=== PATIENT | male | born 1940 | race Caucasian/White ===

== ENCOUNTER → 2016-12-18 | Outpatient (CLI) | payer MEDICARE, BC ==
[2016-12-18 13:42] LABS: Anion Gap 9 mmol/L; Blood Urea Nitrogen 25 mg/dL (9-20); Carbon Dioxide 27 mmol/L (22-30); Chloride 105 mmol/L (98-107); Non-African American GFR(MDRD) 59 (>60 ml/min/1.73 sqM); Sodium 141 mmol/L (137-145)
[2016-12-18 14:01] LABS: CH 34.7; CHCM 35.2; HCT 36.1 % (39.0-53.0); HDW 2.98; HGB 12.5 gm/dL (13.0-17.5); MCH 34.4 pg (25.0-35.0); MCHC 34.7 g/dL (31.0-37.0); MCV 99.2 fL (80.0-100.0); Mean Platelet Volume 7.7; RBC 3.63 m/uL (4.30-5.90); RDW 13.7 % (11.5-15.5); WBC 7.2 k/uL (3.8-10.6)
== END | disposition home or self-care (01) ==
LOC: LABPAT 12:26
PROVIDERS: ATTEND Internal Medicine Interventional Cardiology
DX: Z01.812 Encounter for preprocedural laboratory examination (principal); I73.9 Peripheral vascular disease, unspecified
CPT/HCPCS: 80051; 82565; 84520; 85027

== ENCOUNTER 2016-12-20 07:40 | Day surgery (SDC) | payer MEDICARE, BC ==
[2016-12-18 11:36] VITALS: BMI 37.5
[~2016-12-20 07:40] MED LIST: ALPRAZolam 0.25 MG TAB PO PRN; ASPIRIN 325 MG TAB PO STA; SODIUM CHLORIDE 0.9% 1,000 ML in EMPTY BAG 1 BAG IV ONE
[2016-12-20 08:12] VITALS: PULSE 71; TEMP 97.8
[2016-12-20 08:12] LABS: Glucose,Whole Blood 148 mg/dL (75-99)
[2016-12-20] MEDS: MIDAZOLAM 2 MG/2 ML VIAL IVP ONE ×2 (09:43→09:48)
[2016-12-20] MEDS ORDERED: LIDOCAINE 2% INJ 20 MG/ML SQ ONE (09:48)
[2016-12-20] MEDS: VERAPAMIL SYRINGE (5 MG/10 ML) INTRAARTER ONE ×2 (09:51→10:10)
[2016-12-20] MEDS ORDERED: HEPARIN SODIUM 1,000 UN/ML (10ML VL) IV ONE (09:53)
[2016-12-20] MEDS ORDERED: IODIXANOL 320 MG/ML 100 ML INTRAARTER ONE (10:10)
[2016-12-20] MEDS ORDERED: SODIUM CHLORIDE 0.9% 1,000 ML IV SCH (10:30)
--- NOTE | 2016-12-20 11:09 | AN ---
ABDOMINAL AORTOGRAM/BILATERAL LOWER EXTREMITY RUNOFF: DATE OF SERVICE: 12/20/2016 PERFORMING PHYSICIAN: DAVID BEAULIEU MD, CAR CLEANER PROCEDURE PERFORMED: 1. Abdominal aortogram. 2. Bilateral lower extremity runoff. INDICATION: This is a pleasant 76-year-old gentleman who sees Dr. Ford as an outpatient who is known to have PAD and underwent in March of 2016 stenting of bilateral external iliacs and bilateral common iliac arteries, was experiencing left leg discomfort with exertion. He was brought today to undergo a peripheral angiogram. APPROACH: Right radial artery. COMPLICATION: None. LEVEL OF SEDATION: Moderate with a sedation length of 30 minutes. PROCEDURE DESCRIPTION: After obtaining an informed consent, the patient was brought to the Cardiac Dance Instructor. The right radial artery was cannulated using micropuncture technique. The micropuncture wire passed easily, then I placed a 5 Micronesian sheath in the right radial artery. Subsequently, I gave the patient 2 mg of Verapamil IA and 5000 units of heparin IV. I did after that an abdominal aortogram and bilateral lower extremities runoff using 5 Micronesian Pigtail catheter which was initially placed at the level of the renal arteries, then it was advanced into above the bifurcation of the aorta to right and left common iliac arteries. The procedure was completed without any complication. PERIPHERAL ANGIOGRAM: 1. The abdominal aorta is calcified with mild disease only. 2. Common iliac arteries, the right and left common iliac arteries are stented and both the stents are patent. 3. External iliac arteries, the right external iliac artery is stented and the stent is patent and the left external iliac artery is stented as well with mild in-stent restenoses. 4. Common femoral arteries, the right and left common femoral arteries appear to have mild disease only. 5. Profunda, the right and left profunda are patent. 6. The SFA, the right SFA is diffusely diseased up to about 70% to 80% in the midportion and the left SFA is chronically occluded on short segment in the midportion. 7. The popliteal and below the knee were not visualized because of technical problem during the angiogram. CONCLUSION: 1. Patent stent in bilateral external as well as common iliac arteries. 2. Severe disease involving the right SFA. 3. 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 POSTPROCEDURE MANAGEMENT: The patient will benefit from TALENT ACQUISITION OPERATIONS MANAGER of the left SFA as well as right SFA. [facility]
--- NOTE | 2016-12-20 11:11 | IR ---
Fluoroscopy HISTORY: Left leg pain 3.4 minutes fluoroscopy time supplied to the referring clinician. 128 intraoperative C-arm images do cument the procedure. See dictated report from cardiology.
[2016-12-20 11:34] LABS: Glucose,Whole Blood 219 mg/dL (75-99)
[2016-12-20] MEDS ORDERED: INSULIN LISPRO (humaLOG) 300 UNIT/3 ML VIAL SQ ONE (11:35)
[2016-12-20] MEDS ORDERED: CLOPIDOGREL 75 MG TAB PO ONE (11:45)
[2016-12-20] MEDS ORDERED: LISINOPRIL 20 MG TAB PO ONE (12:00)
[2016-12-20] MEDS ORDERED: ATORVASTATIN 40 MG TAB PO ONE (12:00)
[2016-12-20] MEDS ORDERED: amLODIPine 10 MG TAB PO ONE (12:00)
[2016-12-20] MEDS ORDERED: ATENOLOL 25 MG TAB PO ONE (12:00)
[2016-12-20 13:16] VITALS: RESP 18
[2016-12-20 16:29] VITALS: BP 152/70
[2016-12-20] MEDS ORDERED: NON-FORMULARY DRUG (Enalapril 10 MG) PO SCH (21:00)
[2016-12-20] MEDS ORDERED: ATENOLOL 25 MG TAB PO SCH (21:00)
[2016-12-20] MEDS ORDERED: GLIMEPIRIDE 1 MG TAB PO SCH (21:00)
[2016-12-21] MEDS ORDERED: amLODIPine 10 MG TAB PO SCH (09:00)
[2016-12-21] MEDS ORDERED: INSULIN DETEMIR 30 UNIT SQ SCH (09:00)
[2016-12-21] MEDS ORDERED: CLOPIDOGREL 75 MG TAB PO SCH (09:00)
[2016-12-21] MEDS ORDERED: IRON PO SCH (09:00)
[2016-12-21] MEDS ORDERED: ASPIRIN 325 MG TAB PO SCH (09:00)
[2016-12-21] MEDS ORDERED: ATORVASTATIN 40 MG TAB PO SCH (09:00)
[2016-12-21] MEDS ORDERED: FUROSEMIDE 40 MG TAB PO SCH (09:00)
[2016-12-21] MEDS ORDERED: CHOLECALCIFEROL 1,000 UNIT TAB PO SCH (09:00)
[2016-12-21] MEDS ORDERED: MULTIVIT MINS PO SCH (09:00)
[2016-12-21] MEDS ORDERED: LYCOP PO SCH (09:00)
[2016-12-21] MEDS ORDERED: FOLIC PO SCH (09:00)
== END 2016-12-20 16:20 | disposition home or self-care (01) ==
LOC: CATHCVL 07:40
PROVIDERS: ATTEND Internal Medicine Interventional Cardiology
DX: I70.213 Atherosclerosis of native arteries of extremities with intermittent claudication, bilateral legs (principal); I10 Essential (primary) hypertension; E78.2 Mixed hyperlipidemia; E11.9 Type 2 diabetes mellitus without complications; Z79.84 Long term (current) use of oral hypoglycemic drugs; Z79.4 Long term (current) use of insulin; Z82.49 Family history of ischemic heart disease and other diseases of the circulatory system; Z95.1 Presence of aortocoronary bypass graft; Z95.5 Presence of coronary angioplasty implant and graft; Z95.2 Presence of prosthetic heart valve; Z95.0 Presence of cardiac pacemaker; Z79.02 Long term (current) use of antithrombotics/antiplatelets; Z79.82 Long term (current) use of aspirin; Z79.899 Other long term (current) drug therapy; Z88.0 Allergy status to penicillin
CPT/HCPCS: 99152; 99153; 36200; 75625; 75716; C1769; C1894; J2001; J2250; Q9967; J1644

== ENCOUNTER 2017-01-16 11:55 | Day surgery (SDC) | payer MEDICARE, BC ==
[2017-01-14 08:50] VITALS: BMI 37.7
[~2017-01-16 11:55] MED LIST changes: +ASPIRIN 325 MG TAB PO ONE; -ASPIRIN 325 MG TAB PO STA; +NITROGLYCERIN SL TABS 0.4 MG TAB SUBLINGUAL PRN
[2017-01-16 12:44] LABS: Glucose,Whole Blood 144 mg/dL (75-99)
[2017-01-16] MEDS ORDERED: MIDAZOLAM 2 MG/2 ML VIAL IVP ONE (13:59)
[2017-01-16] MEDS ORDERED: LIDOCAINE 2% INJ 20 MG/ML SQ ONE (14:01)
[2017-01-16] MEDS ORDERED: IV FLUID CONTINUATION 900 ML IV ONE (14:04)
[2017-01-16] MEDS: HYDROmorphone 2 MG/ML 1 ML SYRINGE IVP ONE ×2 (14:08→14:29)
[2017-01-16] MEDS ORDERED: HEPARIN SODIUM 1,000 UN/ML (10ML VL) IV ONE (14:14)
[2017-01-16] MEDS ORDERED: MIDAZOLAM 2 MG/2 ML VIAL IV ONE (15:09)
[2017-01-16] MEDS ORDERED: NITROGLYCERIN 1000MCG/10ML SYRINGE INTRAARTER ONE (15:45)
[2017-01-16] MEDS ORDERED: niCARdipine Syringe (1,000 mcg/10 mL) INTRAARTER ONE (15:45)
[2017-01-16] MEDS ORDERED: IODIXANOL 320 MG/ML 100 ML INTRAARTER ONE (16:01)
[2017-01-16] MEDS ORDERED: CLOPIDOGREL 75 MG TAB PO ONE (16:01)
[2017-01-16] MEDS ORDERED: SODIUM CHLORIDE 0.9% 1,000 ML IV SCH (16:15)
[2017-01-16] MEDS: GLIMEPIRIDE 1 MG TAB PO SCH (16:51)
[2017-01-16] MEDS: FUROSEMIDE 40 MG TAB PO SCH ×2 (18:06→20:13)
[2017-01-16] MEDS ORDERED: Acetaminophen-Codeine 300-30mg TAB PO PRN (18:15)
[2017-01-16] MEDS: Acetaminophen-Codeine 300-30mg TAB PO PRN ×2 (18:23→22:32)
[2017-01-16] MEDS: ATENOLOL 25 MG TAB PO SCH (18:24)
[2017-01-16] MEDS ORDERED: ATROPINE SULFATE 0.1 MG/ML 10ML SYRINGE ONE (18:34)
[2017-01-16 19:28] VITALS: RESP 18
--- NOTE | 2017-01-16 20:48 | PCN ---
PROCEDURE NOTE DATE OF PROCEDURE: 01/16/2017. PERFORMING PHYSICIAN: Sergei Holt M.D., costume director. PROCEDURES PERFORMED: 1. Selective left [id number] angiogram. 2. Selective left SFA angiogram. 3. Atherectomy of the left SFA using the TurboHawk device. 4. Balloon angioplasty of the left SFA. 5. Successful stenting of the left SFA using 6.0 x 60 mm Supera stent with good angiographic results. INDICATION: This is a pleasant 76-year-old gentleman who is known to have severe PAD with prior iliac stenting. 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 He was experiencing left leg discomfort related to severe PAD. He underwent a peripheral angiogram which showed patent stents in bilateral iliacs with chronic total occlusion of the mid left SFA, which was heavily calcified. APPROACH: Left common femoral artery in ipsilateral antegrade fashion. COMPLICATIONS: None. LEVEL OF SEDATION: Moderate with sedation length of 117 minutes. PROCEDURE DESCRIPTION: After obtaining informed consent, the patient was brought to the cardiac component lab tech. The left common femoral artery was cannulated using micropuncture technique. Under ultrasound guidance, the micropuncture wire was advanced to the left SFA. Then I placed a 6 Persian 23 cm sheath in the left SFA. Subsequently anticoagulation was initiated using heparin; the patient was given weight- based heparin of 10,000 with continuous monitoring of ( ) during the procedure. After that, I crossed the chronic total occlusion of the right SFA using an .018 choudhury- tip wire with the backup support of .018 catheter. After that I exchanged my choudhury- tip wire for an .014 Iron Man using an .018 CXI catheter. After that I did multiple runs of directional atherectomy using the TurboHawk device. After that, I did balloon angioplasty using 6.0 mm balloon, but the following angiogram showed severe recoiled of the left SFA in the mid portion, so I decided to stent that segment. At that point, I took a 6.0 x 60 mm Supera self-expandable stent, where the stent was positioned under fluoroscopy guidance and deployed. The following angiogram showed good angiographic results. The procedure was completed without any complication. POST-PROCEDURE MANAGEMENT: 1. Dual anti-platelet therapy. 2. Risk factor modifications. 3. Follow up with the patient. MMODL / IJN: [id number] /
[2017-01-16] MEDS ORDERED: LISINOPRIL 20 MG TAB PO SCH (21:00)
[2017-01-16 21:16] LABS: Glucose,Whole Blood 147 mg/dL (75-99)
--- NOTE | 2017-01-17 05:47 | IR ---
EXAMINATION TYPE: IR storage and backup administrator femoral popliteal DATE OF EXAM: 01/16/2017 CLINICAL HISTORY: Lower extremity diminished perfusion TECHNIQUE: Fluoroscopy. COMPARISON: None. FINDINGS: Fluoroscopic guidance was provided during lower extremity angiogram with angioplasty proce noemí performed by Dr. Holt. A total of 44.9 minutes of fluoroscopic time was utilized during the pro cedure and 14 cine run images are acquired and saved to PACS. Please refer to procedure note for furt her details as I was not present nor performed procedure. IMPRESSION: As Above.
[2017-01-17 06:35] LABS: Basophils % (A) 0 %; CH 35.5; CHCM 35.1; Eosinophils # (A) 0.1 k/uL (0-0.7); Eosinophils % (A) 2 %; HCT 36.3 % (39.0-53.0); HDW 3.08; HGB 12.3 gm/dL (13.0-17.5); Luc # (Auto) 0.25; Luc % (Auto) 4; Lymphocytes # (A) 0.6 k/uL (1.0-4.8); Lymphocytes % (A) 9 %; MCH 34.6 pg (25.0-35.0); MCHC 33.9 g/dL (31.0-37.0); MCV 101.9 fL (80.0-100.0); Macrocytosis Slight; Mean Platelet Volume 8.5; Monocytes # (A) 0.3 k/uL (0-1.0); Monocytes % (A) 5 %; Neutrophils # (A) 5.3 k/uL (1.3-7.7); Neutrophils % (A) 81 %; RBC 3.56 m/uL (4.30-5.90); RDW 14.5 % (11.5-15.5); WBC 6.6 k/uL (3.8-10.6); WBC (Perox) 7.12
[2017-01-17 06:47] LABS: Anion Gap 8 mmol/L; Blood Urea Nitrogen 24 mg/dL (9-20); Calcium 8.5 mg/dL (8.4-10.2); Carbon Dioxide 24 mmol/L (22-30); Chloride 106 mmol/L (98-107); Glucose 141 mg/dL (74-99); Non-African American GFR(MDRD) 55 (>60 ml/min/1.73 sqM); Potassium 4.1 mmol/L (3.5-5.1); Sodium 138 mmol/L (137-145)
[2017-01-17] MEDS: GLIMEPIRIDE 1 MG TAB PO SCH (06:48)
[2017-01-17] MEDS: FUROSEMIDE 40 MG TAB PO SCH (08:47)
[2017-01-17] MEDS: ATENOLOL 25 MG TAB PO SCH (08:48)
--- NOTE | 2017-01-17 08:52 | DS ---
DISCHARGE SUMMARY DATE OF ADMISSION: 01/16/2017 DATE OF DISCHARGE: 01/17/2017 BRIEF HISTORY: This is a pleasant 76-year-old gentleman who sees Dr. Ford as an outpatient, who was admitted to the hospital yesterday and underwent successful COMBINE MECHANIC and stenting of the of the left SFA with a good angiographic result and without any complication. The procedure was performed from the left groin in antegrade technique. The patient is going to be discharged home on dual anti-platelet therapy and statin and I will follow up with him next week in the office. MMANNL / IJN: [id number] /
[2017-01-17 08:56] VITALS: BP 129/75; PULSE 75; TEMP 97.6
[2017-01-17] MEDS ORDERED: ASPIRIN 325 MG TAB PO SCH (09:00)
[2017-01-17] MEDS ORDERED: amLODIPine 10 MG TAB PO SCH (09:00)
[2017-01-17] MEDS ORDERED: CHOLECALCIFEROL 1,000 UNIT TAB PO SCH (09:00)
[2017-01-17] MEDS ORDERED: CLOPIDOGREL 75 MG TAB PO SCH (09:00)
[2017-01-17] MEDS ORDERED: INSULIN DETEMIR 100 UNIT/ML 10 ML VIAL SQ SCH (09:00)
[2017-01-17] MEDS ORDERED: ATORVASTATIN 40 MG TAB PO SCH (09:00)
[2017-01-17] MEDS ORDERED: MULTIVITAMINS, THERA 1 EACH TAB PO SCH (12:00)
[2017-01-17 12:12] LABS: Glucose,Whole Blood 152 mg/dL (75-99)
[2017-01-17 13:04] LABS: Hemoglobin A1C 6.1 % (4.2-6.1)
== END 2017-01-17 10:56 | disposition home or self-care (01) ==
LOC: CATHCVL 11:55 → 6SEL 15:47 → CATHCVL 01-17 10:56
PROVIDERS: ATTEND Internal Medicine Interventional Cardiology
DX: I70.212 Atherosclerosis of native arteries of extremities with intermittent claudication, left leg (principal); I70.92 Chronic total occlusion of artery of the extremities; I65.21 Occlusion and stenosis of right carotid artery; E78.2 Mixed hyperlipidemia; I10 Essential (primary) hypertension; E11.9 Type 2 diabetes mellitus without complications; I25.82 Chronic total occlusion of coronary artery; I25.10 Atherosclerotic heart disease of native coronary artery without angina pectoris; E66.9 Obesity, unspecified; Z68.37 Body mass index [BMI] 37.0-37.9, adult; Z79.84 Long term (current) use of oral hypoglycemic drugs; Z79.02 Long term (current) use of antithrombotics/antiplatelets; Z79.82 Long term (current) use of aspirin; Z79.4 Long term (current) use of insulin; Z79.899 Other long term (current) drug therapy; Z82.49 Family history of ischemic heart disease and other diseases of the circulatory system; Z95.5 Presence of coronary angioplasty implant and graft; Z95.1 Presence of aortocoronary bypass graft; Z95.2 Presence of prosthetic heart valve; Z88.0 Allergy status to penicillin
CPT/HCPCS: 99152; 99153 ×6; 37227; 80048; 83036; 85025; C1769 ×9; C1894 ×3; C1725; C1887; C1714; C1876; J2001; J2250; J1170; Q9967; J1644

== ENCOUNTER 2017-07-06 17:43 | Inpatient (IN) | payer MEDICARE, BC ==
[2017-07-06] MEDS ORDERED: SODIUM CHLORIDE 0.9% 1,000 ML IV STA (17:51)
[2017-07-06] MEDS ORDERED: ASPIRIN 81 MG PO STA (17:51)
[2017-07-06] MEDS ORDERED: NITROGLYCERIN OINT 1 INCH/GM PACKET TOPICAL STA (17:51)
[2017-07-06] MEDS ORDERED: ONDANSETRON 4 MG/2 ML VIAL IVP STA (17:51)
[2017-07-06] MEDS ORDERED: MORPHINE SULFATE 4 MG/ML SYRINGE IV STA (17:51)
[2017-07-06 18:20] LABS: Basophils % (A) 0 %; Eosinophils % (A) 0 %; HCT 37.2 % (39.0-53.0); HGB 12.7 gm/dL (13.0-17.5); Lymphocytes # (A) 0.8 k/uL (1.0-4.8); Lymphocytes % (A) 7 %; MCH 33.6 pg (25.0-35.0); MCHC 34.1 g/dL (31.0-37.0); MCV 98.5 fL (80.0-100.0); Monocytes # (A) 0.3 k/uL (0-1.0); Monocytes % (A) 3 %; Neutrophils # (A) 9.9 k/uL (1.3-7.7); Neutrophils % (A) 89 %; Platelet Count 166 k/uL (150-450); RBC 3.78 m/uL (4.30-5.90); RDW 13.1 % (11.5-15.5); WBC 11.2 k/uL (3.8-10.6)
[2017-07-06 18:33] LABS: Prothrombin Time 10.2 sec (9.0-12.0)
[2017-07-06 18:38] LABS: D-Dimer 0.77 mg/L FEU (<0.60)
[2017-07-06 18:47] LABS: Partial Thromboplastin Time 20.8 sec (22.0-30.0)
[2017-07-06 18:58] LABS: Troponin I 0.018 ng/mL (0.000-0.034)
[2017-07-06 18:59] LABS: Creatine Kinase MB 2.6 ng/mL (0.0-2.4)
--- NOTE | 2017-07-06 19:03 | ED ---
Chest Pain HPI - General Chief Complaint: Chest Pain Stated Complaint: Chest Pain Time Seen by Provider: 07/06/17 17:45 Source: patient Mode of arrival: EMS Limitations: no limitations - History of Present Illness Initial Comments: 76 years old male presented with a chest pain ongoing for last 3 days, he has used is a nitro with some relief today when he was sticking out his trash chest pain got worse and he ended up calling EMS he does have a history of ischemic heart disease he had a CABG quit 20 years ago according to the patient and now he said he is on blood thinners he has a nitro old white male pain is down to 1/ 10 and he said pain gets worse with a deep breaths. He denies any fever no chills he is not coughing up any phlegm denies abdominal pain no frequency urgency dysuria no symptoms of TIA or CVA - Related Data Home Medications Medication Instructions Recorded Confirmed Aspirin 325 mg PO DAILY 06/06/15 07/06/17 Atorvastatin Calcium [Lipitor] 40 mg PO DAILY 06/06/15 07/06/17 Clopidogrel [Plavix] 75 mg PO QAM 06/06/15 07/06/17 Enalapril [Vasotec] 10 mg PO BID 06/06/15 07/06/17 Glimepiride [Amaryl] 1 mg PO BID 06/06/15 07/06/17 amLODIPine [Norvasc] 10 mg PO QAM 06/06/15 07/06/17 Insulin Detemir [Levemir Flextouch] 25 units SQ QAM 02/20/16 07/06/17 Furosemide [Lasix] 40 mg PO BID 03/06/16 07/06/17 Cholecalciferol [Vitamin D3] 2,000 unit PO DAILY 04/13/16 07/06/17 Multivit-Mins/Iron/Folic/Lycop 1 tab PO DAILY 04/13/16 07/06/17 [Centrum Men's Tablet] Nitroglycerin 0.4 mg SL DIRECTED PRN 04/12/17 07/06/17 Azithromycin [Zithromax Z-pack] See Taper PO DIRECTED 07/06/17 07/06/17 Metoprolol Tartrate [Lopressor] 25 mg PO BID 07/06/17 07/06/17 metFORMIN HCL [Glucophage] 500 mg PO DAILY 07/06/17 07/06/17 predniSONE 50 mg PO DAILY 07/06/17 07/06/17 Allergies Allergy/AdvReac Type Severity Reaction Status Date / Time Penicillins Allergy Itching Verified 07/06/17 18:15 Review of Systems ROS Statement: Those systems with pertinent positive or pertinent negative responses have been documented in the HPI. ROS Other: All systems not noted in ROS Statement are negative. EKG Findings - EKG Comments: EKG Findings:: Him EKG is as paced EKG with the frequent premature ventricular complexes and fusion complexes ventricular rate is 91 OK interval is 176 QRS duration is 164 QT/QTc is 434/533 Past Medical History Past Medical History: Coronary Artery Disease (CAD), Cancer, Heart Failure, Diabetes Mellitus, Hyperlipidemia, Hypertension, Myocardial Infarction (ND), Osteoarthritis (OA), Skin Disorder, Vascular Disorder Additional Past Medical History / Comment(s): Heart Murmur, LT Leg EDEMA, PAIN (HX VEIN HARVESTING). 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 Eliud Knee Replacements. EXC Eliud Cataract. DOUBLE CABG. AORTIC HEART VALVE REPLACEMENT, AND PACEMAKER 2015. ABD Aortogram W/ RUNOFF. PTBA ELIUD W/ STENTS X5, skin CA on nose removed Past Anesthesia/Blood Transfusion Reactions: No Reported Reaction Date of Last Stent Placement:: 2015 Type of Cardiac Device: Permanent Pacemaker Device Placement Date:: 2015 Past Psychological History: No Psychological Hx Reported Smoking Status: Former smoker Past Alcohol Use History: Occasional Past Drug Use History: None Reported - Past Family History Mother Family Medical History: Cancer Sister(s) Family Medical History: Cancer Father Family Medical History: CVA/TIA Daughter(s) Family Medical History: Cancer Brother(s) Additional Family Medical History / Comment(s): Patient has 1 brother that from a myocardial infarction. A second brother has but he does not know the underlying cause. General Exam - General Exam Comments Initial Comments: General: The patient is awake and alert, in no distress, and does not appear acutely ill. GCS is 15 Skin: Skin is warm and dry and no rashes or lesions are noted. Eye: Pupils are equal, round and reactive to light, extra-ocular movements are intact; there is normal conjunctiva bilaterally. Ears, nose, mouth and throat: There are moist mucous membranes and no oral lesions. Neck: The neck is supple, there is no tenderness Cardiovascular: There is a regular rate and rhythm. No murmur, rub or gallop is appreciated. There are some PVCs Respiratory: To auscultation bilateral, decrease breath sounds bilateral Gastrointestinal: Soft, non-distended, non-tender abdomen without masses or organomegaly noted. There is no rebound or guarding present. Bowel sounds are unremarkable. Back: There is no tenderness to palpation in the midline. There is no obvious deformity. Musculoskeletal: Normal ROM, no tenderness, There is no pedal edema. There is no calf tenderness or swelling. No cords were appreciated. Neurological: CN II-XII intact, Cranial nerves III through XII are intact. There are no obvious motor or sensory deficits. Coordination appears grossly intact. Speech is normal. Psychiatric: Cooperative, appropriate mood & affect, normal judgment. Limitations: no limitations Course Vital Signs 07/06/17 07/06/17 07/06/17 17:47 18:53 19:21 Temperature 97.0 F L 98 F Pulse Rate 95 78 81 Respiratory 18 16 18 Rate Blood Pressure 168/79 148/66 154/69 O2 Sat by Pulse 96 98 96 Oximetry Disposition Clinical Impression: Chest pain, History of ischemic heart disease Disposition: ADMITTED IP TO THIS HOSP
[2017-07-06] MEDS ORDERED: RX INFO: IV CONTRAST WAS GIVEN 1 EACH MISC MISCELLANE PRN (19:05)
--- NOTE | 2017-07-06 19:08 | XR ---
EXAMINATION TYPE: XR chest 2V DATE OF EXAM: 07/06/2017 COMPARISON: 07/17/2014 INDICATION: Chest pain x3 days, shortness of breath TECHNIQUE: Frontal and lateral views of the chest are obtained. FINDINGS: The heart size is normal. The pulmonary vasculature is normal. No suspicious infiltrates are evident.. Aortic stent is evident. Sternotomy wires are present. Pacem allegra wires are present. IMPRESSION: 1. No acute pulmonary process.
[2017-07-06 19:13] LABS: ALT 29 U/L (21-72); AST 38 U/L (17-59); Albumin 3.9 g/dL (3.5-5.0); Alkaline Phosphatase 74 U/L (38-126); Anion Gap 11 mmol/L; Blood Urea Nitrogen 39 mg/dL (9-20); Calcium 9.5 mg/dL (8.4-10.2); Carbon Dioxide 24 mmol/L (22-30); Chloride 104 mmol/L (98-107); Glucose 183 mg/dL (74-99); Potassium 4.8 mmol/L (3.5-5.1); Sodium 139 mmol/L (137-145); Total Bilirubin 1.1 mg/dL (0.2-1.3); Total Protein 6.6 g/dL (6.3-8.2)
[2017-07-06] MEDS ORDERED: MORPHINE SULFATE 4 MG/ML SYRINGE IVP PRN (19:22)
[2017-07-06] MEDS ORDERED: HEPARIN SODIUM,PORCINE 5,000 UNIT/ML 1 ML VIAL IV ONE (19:22)
[2017-07-06] MEDS: HEPARIN SOD,PORK IN 0.45% NACL 25,000 UNIT in 0.45% NACL 1 500ML.BAG IV SCH (20:00)
[2017-07-06 20:45] VITALS: BMI 39.4
[2017-07-06 20:52] LABS: Glucose,Whole Blood 136 mg/dL (75-99)
--- NOTE | 2017-07-06 20:52 | CT ---
CT CHEST FOR PULMONARY EMBOLISM. EXAMINATION TYPE: CT chest angio for PE DATE OF EXAM: 07/06/2017 INDICATION: Mid chest pain and shortness of breath x [address] DLP: 711 mGycm, Automated exposure control for dose reduction was used. CONTRAST: Patient injected with 80 mL of Visipaque 320. COMPARISON: NONE TECHNIQUE: CT of the chest is performed on a spiral scan at 2 mm thick sections. Study is performed with intravenous contrast timed for evaluation for pulmonary embolism. This will limit additional po rtions of the evaluation. 3-D MIP images reconstructed by the technologist are reviewed on the compu ter in the coronal and sagittal planes. FINDINGS: No persistent filling defects are evident to suggest an acute pulmonary embolism. No mediastinal or hilar adenopathy enlarged by CT criteria is evident. The ascending aorta diameter at the level of the main pulmonary artery is 3.9 cm. The main pulmonary artery diameter at the bifur cation is 2.2 cm. Small hiatal hernia is present. Lung windows are clear. Limited CT section through the upper abdomen are unremarkable. IMPRESSIONS: 1. No acute pulmonary embolism. 2. Small hiatal hernia
[2017-07-06] MEDS: GLIMEPIRIDE 1 MG TAB PO SCH (20:59)
[2017-07-06] MEDS: LISINOPRIL 20 MG TAB PO SCH (21:12)
[2017-07-06] MEDS: FUROSEMIDE 40 MG TAB PO SCH (21:12)
[2017-07-06] MEDS: METOPROLOL TARTRATE 25 MG TAB PO SCH (21:12)
[2017-07-07] MEDS ORDERED: HEPARIN SODIUM,PORCINE 5,000 UNIT/ML 1 ML VIAL IV STA ×2 (01:47→01:53)
[2017-07-07 02:07] LABS: Creatine Kinase MB 2.4 ng/mL (0.0-2.4)
[2017-07-07 02:13] LABS: Troponin I 0.039 ng/mL (0.000-0.034)
[2017-07-07 06:09] LABS: Glucose,Whole Blood 95 mg/dL (75-99)
[2017-07-07] MEDS ORDERED: metFORMIN 500 MG TAB PO SCH (07:30)
[2017-07-07 08:42] LABS: Creatine Kinase MB 2.2 ng/mL (0.0-2.4)
[2017-07-07 08:47] LABS: Troponin I 0.042 ng/mL (0.000-0.034)
[2017-07-07 08:55] LABS: Cholesterol 140 mg/dL (<200); HDL Cholesterol 65 mg/dL (40-60); LDL Cholesterol,Calculated 48 mg/dL (0-99); Triglycerides 136 mg/dL (<150)
[2017-07-07] MEDS: METOPROLOL TARTRATE 25 MG TAB PO SCH ×2 (08:55→20:09)
[2017-07-07] MEDS: LISINOPRIL 20 MG TAB PO SCH ×2 (08:56→20:10)
[2017-07-07] MEDS: CLOPIDOGREL 75 MG TAB PO SCH (08:56)
[2017-07-07] MEDS: FUROSEMIDE 40 MG TAB PO SCH ×2 (08:56→20:10)
[2017-07-07] MEDS: ATORVASTATIN 40 MG TAB PO SCH (08:56)
[2017-07-07] MEDS: amLODIPine 10 MG TAB PO SCH (08:56)
[2017-07-07] MEDS: ASPIRIN 325 MG TAB PO SCH (08:56)
[2017-07-07] MEDS ORDERED: predniSONE 50 MG TAB PO SCH (09:00)
--- NOTE | 2017-07-07 10:33 | P.CRDCN ---
History of Present Illness Consult date: 07/07/17 Requesting physician: Johanna Rachel Consult reason: chest pain Chief complaint: Chest pain History of present illness: This is a pleasant 76-year-old gentleman who follows regularly with Dr. Ford in the office. He has known history of coronary artery disease with prior bypass surgery in 1993 at which time he underwent a TELLO to the LAD and saphenous vein graft to the OM1, subsequent to that patient has undergone multiple stent placements, patient also has severe peripheral vascular disease and has undergone multiple stent placements by Dr. Ramos, history also of diabetes, hypertension, hyperlipidemia, family history of premature coronary artery disease, and severe aortic stenosis status post TAVR in July 2015. 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 He did take a sublingual nitroglycerin at that time with relief of symptoms. Since then patient states even with minimal exertion he gets this discomfort, initially if he would sit down to rest the symptoms with side, now he does need to take nitroglycerin in order for the symptoms to resolve. He also states that he's had a recent cough and was treated with Zithromax for a possible bronchitis. At the time of my examination this morning, he is currently chest pain free. Blood pressure 130/60 with a heart rate in the 70s, 97% 2 L. White blood cell count 11.2, hemoglobin 12.7, platelet count 166. D- dimer 0.7. Sodium 139, potassium 4.8, BUN 39, creatinine 1.3. Troponins 0.018 , 0.039, 0.042. Chest X-ray does not reveal any acute process. EKG shows a paced rhythm with frequent PVCs. Past Medical History Past Medical History: Coronary Artery Disease (CAD), Cancer, Heart Failure, Diabetes Mellitus, Hyperlipidemia, Hypertension, Myocardial Infarction ([place]), Osteoarthritis (OA), Skin Disorder, Vascular Disorder Additional Past Medical History / Comment(s): Heart Murmur, LT Leg EDEMA, PAIN (HX VEIN HARVESTING). 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 Eliud Knee Replacements. EXC Eliud Cataract. DOUBLE CABG. AORTIC HEART VALVE REPLACEMENT, AND PACEMAKER 2015. ABD Aortogram W/ RUNOFF. PTBA ELIUD W/ STENTS X5, skin CA on nose removed Past Anesthesia/Blood Transfusion Reactions: No Reported Reaction Date of Last Stent Placement:: 2015 Type of Cardiac Device: Permanent Pacemaker Device Placement Date:: 2015 Past Psychological History: No Psychological Hx Reported Smoking Status: Former smoker Past Alcohol Use History: Occasional Additional Past Alcohol Use History / Comment(s): Started smoking age 8, quit smoking 1997, SMOKED 2 PPD. Past Drug Use History: None Reported - Past Family History Mother Family Medical History: Cancer Sister(s) Family Medical History: Cancer Father Family Medical History: CVA/TIA Daughter(s) Family Medical History: Cancer Medications and Allergies Home Medications Medication Instructions Recorded Confirmed Type Aspirin 325 mg PO DAILY 06/06/15 07/06/17 History Atorvastatin Calcium [Lipitor] 40 mg PO DAILY 06/06/15 07/06/17 History Clopidogrel [Plavix] 75 mg PO QAM 06/06/15 07/06/17 History Enalapril [Vasotec] 10 mg PO BID 06/06/15 07/06/17 History Glimepiride [Amaryl] 1 mg PO BID 06/06/15 07/06/17 History amLODIPine [Norvasc] 10 mg PO QAM 06/06/15 07/06/17 History Insulin Detemir [Levemir Flextouch] 25 units SQ QAM 02/20/16 07/06/17 History Furosemide [Lasix] 40 mg PO BID 03/06/16 07/06/17 History Cholecalciferol [Vitamin D3] 2,000 unit PO DAILY 04/13/16 07/06/17 History Multivit-Mins/Iron/Folic/Lycop 1 tab PO DAILY 04/13/16 07/06/17 History [Centrum Men's Tablet] Nitroglycerin 0.4 mg SL DIRECTED PRN 04/12/17 07/06/17 History Azithromycin [Zithromax Z-pack] See Taper PO DIRECTED 07/06/17 07/06/17 History Metoprolol Tartrate [Lopressor] 25 mg PO BID 07/06/17 07/06/17 History metFORMIN HCL [Glucophage] 500 mg PO DAILY 07/06/17 07/06/17 History predniSONE 50 mg PO DAILY 07/06/17 07/06/17 History Allergies Allergy/AdvReac Type Severity Reaction Status Date / Time Penicillins Allergy Itching Verified 07/06/17 18:15 Physical Exam Vitals: Vital Signs Temp Pulse Pulse Resp BP BP Pulse Ox 07/07/17 04:00 97.5 F L 74 18 148/75 97 07/07/17 00:00 97.0 F L 70 18 130/57 95 07/06/17 20:39 96.9 F L 92 18 140/76 97 07/06/17 20:30 96.9 F L 92 18 140/76 92 L 07/06/17 19:21 98 F 81 18 154/69 96 07/06/17 18:53 78 16 148/66 98 07/06/17 17:47 97.0 F L 95 18 168/79 96 Intake and Output 07/06/17 07/07/17 07/07/17 22:59 06:59 14:59 Intake Total 116.101 0 Output Total 1825 Balance -1708.899 0 Intake: Intake, IV Titration 116.101 Amount Heparin Sod,Pork in 0.45% 116.101 NaCl 25,000 unit In 0.45 % NaCl 1 500ml.bag @ 8.7 UNITS/KG/HR 19.96 mls/hr IV .Q24H [facility] Rx#: [id number] Oral 0 Output: Urine 1825 Other: # Voids 1 Weight 124.5 kg 124.5 kg PHYSICAL EXAMINATION: HEENT: Head is atraumatic, normocephalic. Pupils equal, round. Neck is supple. There is no elevated jugular venous pressure. HEART EXAMINATION: Heart S1 and S2 systolic murmur is heard. CHEST EXAMINATION: Lungs are clear to auscultation and precussion. No chest wall tenderness is noted on palpation or with deep breathing. ABDOMEN: Soft, obese, nontender. Bowel sounds are heard. No organomegaly noted. EXTREMITIES: 1+ peripheral pulses with no evidence of peripheral edema and no calf tenderness noted. NEUROLOGIC patient is awake, alert and oriented -3. . Results 07/06/17 17:51 07/06/17 17:51 Cardiac Enzymes 18 18 07/07/17 Range/Units 17:51 17:51 01:08 AST 38 (17-59) U/L CK-MB (CK-2) 2.6 H* 2.4 (0.0-2.4) ng/mL Troponin I 0.018 0.039 H* (0.000-0.034) ng/mL 07/07/17 Range/Units 07:39 AST (17-59) U/L CK-MB (CK-2) 2.2 (0.0-2.4) ng/mL Troponin I 0.042 H* (0.000-0.034) ng/mL Coagulation 18 07/07/17 07/07/17 Range/Units 17:51 01:08 07:39 PT 10.2 (9.0-12.0) sec APTT 20.8 L 31.5 H 54.6 H (22.0-30.0) sec Lipids 07/07/17 Range/Units 07:39 Triglycerides 136 (<150) mg/dL Cholesterol 140 (<200) mg/dL HDL Cholesterol 65 H (40-60) mg/dL CBC 07/06/17 Range/Units 17:51 WBC 11.2 H (3.8-10.6) k/uL RBC 3.78 L (4.30-5.90) m/uL Hgb 12.7 L (13.0-17.5) gm/dL Hct 37.2 L (39.0-53.0) % Plt Count 166 (150-450) k/uL Comprehensive Metabolic Panel 07/06/17 Range/Units 17:51 Sodium 139 (137-145) mmol/L Potassium 4.8 (3.5-5.1) mmol/L Chloride 104 (98-107) mmol/L Carbon Dioxide 24 (22-30) mmol/L BUN 39 H (9-20) mg/dL Creatinine 1.30 H (0.66-1.25) mg/dL Glucose 183 H (74-99) mg/dL Calcium 9.5 (8.4-10.2) mg/dL AST 38 (17-59) U/L ALT 29 (21-72) U/L Alkaline Phosphatase 74 (38-126) U/L Total Protein 6.6 (6.3-8.2) g/dL Albumin 3.9 (3.5-5.0) g/dL Current Medications Generic Name Dose Route Start Last Admin Trade Name Freq PRN Reason Stop Dose Admin Amlodipine Besylate 10 mg 07/07/17 09:00 07/07/17 08:56 Norvasc PO 10 mg QAM [facility] Administration Aspirin 325 mg 07/07/17 09:00 07/07/17 08:56 Aspirin PO 325 mg DAILY [facility] Administration Atorvastatin Calcium 40 mg 07/07/17 09:00 07/07/17 08:56 Lipitor PO 40 mg DAILY [facility] Administration Azithromycin 250 mg 07/07/17 10:00 Zithromax PO 07/08/17 09:01 DAILY [facility] Cholecalciferol 2,000 unit 07/07/17 12:00 Vitamin D3 PO 1200 [facility] Clopidogrel Bisulfate 75 mg 07/07/17 09:00 07/07/17 08:56 Plavix PO 75 mg QAM [facility] Administration Furosemide 40 mg 07/06/17 21:00 07/07/17 08:56 Lasix PO 40 mg BID [facility] Administration Heparin Sodium/Sodium Chloride 500 mls @ 19.96 mls/hr 07/06/17 19:30 01:49 25,000 unit/ Sodium Chloride IV 11.7 units/kg/hr .Q24H [facility] 26.85 mls/hr Protocol Titration 8.7 UNITS/KG/HR Insulin Detemir 25 unit 07/07/17 09:00 Levemir SQ QAM [facility] Lisinopril 20 mg 07/06/17 21:00 07/07/17 08:56 Zestril PO 20 mg BID [facility] Administration Metoprolol Tartrate 25 mg 07/06/17 21:00 07/07/17 08:55 Lopressor PO 25 mg BID [facility] Administration Miscellaneous Information 1 each 07/06/17 19:05 Rx Info: Iv Contrast Was Given MISCELLANE 07/08/17 19:06 DAILY PRN Per Protocol Morphine Sulfate 2 mg 07/06/17 19:22 Morphine Sulfate (Inj) IVP Q5M PRN Chest Pain Multivitamins 1 each 07/07/17 12:00 Theragran PO DAILY@1200 [facility] Prednisone 40 mg 07/08/17 09:00 PO 07/08/17 09:01 ONCE ONE Intake and Output 07/06/17 07/07/17 07/07/17 22:59 06:59 14:59 Intake Total 116.101 0 Output Total 1825 Balance -1708.899 0 Intake: Intake, IV Titration 116.101 Amount Heparin Sod,Pork in 0.45% 116.101 NaCl 25,000 unit In 0.45 % NaCl 1 500ml.bag @ 8.7 UNITS/KG/HR 19.96 mls/hr IV .Q24H [facility] Rx#: [id number] Oral 0 Output: Urine 1825 Other: # Voids 1 Weight 124.5 kg 124.5 kg 07/06/17 17:51 07/06/17 17:51 EKG Interpretations (text) EKG shows a paced rhythm with PVCs. Assessment and Plan Plan: Assessment and plan #1 symptoms of exertional chest discomfort with abnormality in troponins suggesting acute coronary syndrome. EKG shows a paced rhythm. #2 known history of coronary artery disease with prior bypass surgery in 1993 with TELLO to the LAD and saphenous vein graft to the OM1. Subsequent multiple stenting. #3 peripheral vascular disease with multiple stenting procedures. #4 history of severe aortic stenosis status post TAVR in 2016 Number 5 hypertension #6 diabetes #7 hyperlipidemia #8 prior pacemaker implantation #9 mild renal insufficiency, creatinine 1.3 Plan We'll continue IV heparin. Echocardiogram with Doppler study will be requested. Patient has been advised to undergo cardiac catheterization, the risks and the benefits were explained to him in detail. This will be performed tomorrow by Dr. Ford. We will also hydrate the patient. DNP note has been reviewed, I agree with a documented findings and plan of care. Patient was seen and examined.
[2017-07-07] MEDS: GLIMEPIRIDE 1 MG TAB PO SCH (10:54)
[2017-07-07] MEDS: INSULIN DETEMIR 100 UNIT/ML 10 ML VIAL SQ SCH (11:07)
[2017-07-07 11:55] LABS: Glucose,Whole Blood 160 mg/dL (75-99)
[2017-07-07] MEDS: CHOLECALCIFEROL 1,000 UNIT TAB PO SCH (12:00)
[2017-07-07] MEDS: AZITHROMYCIN 250 MG TAB PO SCH (12:00)
[2017-07-07] MEDS: MULTIVITAMINS, THERA 1 EACH TAB PO SCH (12:00)
--- NOTE | 2017-07-07 12:13 | P.HPIM ---
History of Present Illness H&P Date: 07/07/17 Chief Complaint: Chest pain This is a 76-year-old male patient of Dr. Aristeo Garrett with past medical history of coronary artery disease status post 2 vessel coronary artery bypass graft in 1993 with multiple subsequent percutaneous revascularization, severe aortic stenosis status post aortic valve replacement, severe peripheral artery disease with bilateral lower extremity intermittent claudication status post atherectomy of the right superficial femoral artery, balloon angioplasty, stenting of the left superficial femoral artery stenting of the right external iliac artery, stenting of the left external iliac artery, pacemaker placement, diabetes mellitus type 2, hypertension, hyperlipidemia, osteoarthritis, skin cancer. Patient states that he has been having chest pain for the last 3-4 days and thought it was because he had phlegm. He has had a cough with slightly yellow sputum production. He has been on a Z-Young and oral prednisone 50 mg 5 days. He states he has 1 or 2 more days left on his prescriptions. He states that the pain in his chest comes and goes with activity and he also has difficulty breathing. He denies any pain to his arms, sweats. HEENT has been taking nitroglycerin which cleared the pain. He has had some nausea or decreased appetite with no vomiting, no abdominal pain. He has chronic left lower extremity edema but otherwise no change. He denies any sore throat. Patient took nitroglycerin at home and by the time ambulance came he was pain- free. He also took an aspirin before he left his home. At the time of this evaluation, patient denies having any chest pain or shortness of breath. Patient presented to [facility] emergency center for evaluation. Vital signs were stable. Pulse ox was 96% on room air. White count was 11.2, hemoglobin 12.7, d-dimer 0.77. BUN 39 creatinine 1.30. Electrolytes were within normal limits. Blood sugar 183. Troponins 0.018, 0.039, 0.04 to EKG was a paced rhythm. Patient underwent a CTA of the chest which was negative for pulmonary embolism. Small hiatal hernia. Chest x-ray showed no acute pulmonary process. Patient was started on Nitropaste heparin drip and admitted to the selective care unit and cardiology consult requested. Review of Systems All systems: negative Constitutional: Reports poor appetite, Denies anorexia, Denies chills, Denies fatigue, Denies fever, Denies lethargy, Denies malaise, Denies night sweats, Denies sweats, Denies weakness, Denies weight loss Eyes: denies blurred vision, denies pain Ears, nose, mouth and throat: Denies headache, Denies sore throat Cardiovascular: Reports chest pain, Reports dyspnea on exertion, Reports leg edema, Denies lightheadedness, Denies palpitations, Denies shortness of breath, Denies syncope Respiratory: Reports cough, Reports cough with sputum, Reports dyspnea, Denies excessive sputum, Denies hemoptysis, Denies home oxygen, Denies pain on inspiration, Denies wheezing Gastrointestinal: Denies abdominal pain, Denies diarrhea, Denies nausea, Denies vomiting Genitourinary: Denies dysuria Musculoskeletal: Denies frequent falls, Denies gait dysfunction, Denies myalgias Integumentary: Denies pruritus, Denies rash Neurological: Denies numbness, Denies weakness Psychiatric: Denies anxiety, Denies depression Endocrine: Denies fatigue, Denies weight change Past Medical History Past Medical History: Coronary Artery Disease (CAD), Cancer, Heart Failure, Diabetes Mellitus, Hyperlipidemia, Hypertension, Myocardial Infarction ([place]), Osteoarthritis (OA), Skin Disorder, Vascular Disorder Additional Past Medical History / Comment(s): Heart Murmur, LT Leg EDEMA, PAIN (HX VEIN HARVESTING). 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 Roshni Knee Replacements. EXC Roshni Cataract. DOUBLE CABG. AORTIC HEART VALVE REPLACEMENT, AND PACEMAKER 2016. ABD Aortogram W/ RUNOFF. PTBA ROSHNI W/ STENTS X5, skin CA on nose removed Past Anesthesia/Blood Transfusion Reactions: No Reported Reaction Date of Last Stent Placement:: 2015 Type of Cardiac Device: Permanent Pacemaker Device Placement Date:: 2015 Past Psychological History: No Psychological Hx Reported Smoking Status: Former smoker Past Alcohol Use History: Occasional Additional Past Alcohol Use History / Comment(s): Started smoking age 8, quit smoking 1997, SMOKED 2 PPD. Patient has 1 alcoholic drink per night before bed. Past Drug Use History: None Reported - Past Family History Mother Family Medical History: Cancer Additional Family Medical History / Comment(s): Mother from colon cancer. Sister(s) Family Medical History: Cancer Additional Family Medical History / Comment(s): Patient has one sister that from cancer but he does not know the type of cancer. Father Family Medical History: CVA/TIA Additional Family Medical History / Comment(s): Father from a cerebral hemorrhage. Daughter(s) Family Medical History: Cancer Additional Family Medical History / Comment(s): Patient has one daughter with cancer but does not know type. Brother(s) Additional Family Medical History / Comment(s): Patient has 1 brother that from a myocardial infarction. A second brother has but he does not know the underlying cause. Medications and Allergies Home Medications Medication Instructions Recorded Confirmed Type Aspirin 325 mg PO DAILY 06/06/15 07/06/17 History Atorvastatin Calcium [Lipitor] 40 mg PO DAILY 06/06/15 07/06/17 History Clopidogrel [Plavix] 75 mg PO QAM 06/06/15 07/06/17 History Enalapril [Vasotec] 10 mg PO BID 06/06/15 07/06/17 History Glimepiride [Amaryl] 1 mg PO BID 06/06/15 07/06/17 History amLODIPine [Norvasc] 10 mg PO QAM 06/06/15 07/06/17 History Insulin Detemir [Levemir Flextouch] 25 units SQ QAM 02/20/16 07/06/17 History Furosemide [Lasix] 40 mg PO BID 03/06/16 07/06/17 History Cholecalciferol [Vitamin D3] 2,000 unit PO DAILY 04/13/16 07/06/17 History Multivit-Mins/Iron/Folic/Lycop 1 tab PO DAILY 04/13/16 07/06/17 History [Centrum Men's Tablet] Nitroglycerin 0.4 mg SL DIRECTED PRN 04/12/17 07/06/17 History Azithromycin [Zithromax Z-pack] See Taper PO DIRECTED 07/06/17 07/06/17 History Metoprolol Tartrate [Lopressor] 25 mg PO BID 07/06/17 07/06/17 History metFORMIN HCL [Glucophage] 500 mg PO DAILY 07/06/17 07/06/17 History predniSONE 50 mg PO DAILY 07/06/17 07/06/17 History Allergies Allergy/AdvReac Type Severity Reaction Status Date / Time Penicillins Allergy Itching Verified 07/06/17 18:15 Physical Exam Vitals: Vital Signs Temp Pulse Pulse Resp BP BP Pulse Ox 07/07/17 04:00 97.5 F L 74 18 148/75 97 07/07/17 00:00 97.0 F L 70 18 130/57 95 07/06/17 20:39 96.9 F L 92 18 140/76 97 07/06/17 20:30 96.9 F L 92 18 140/76 92 L 07/06/17 19:21 98 F 81 18 154/69 96 07/06/17 18:53 78 16 148/66 98 07/06/17 17:47 97.0 F L 95 18 168/79 96 Intake and Output 07/06/17 07/07/17 07/07/17 22:59 06:59 14:59 Intake Total 116.101 Output Total 1825 Balance -1708.899 Intake: Intake, IV Titration 116.101 Amount Heparin Sod,Pork in 0.45% 116.101 NaCl 25,000 unit In 0.45 % NaCl 1 500ml.bag @ 8.7 UNITS/KG/HR 19.96 mls/hr IV .Q24H [facility] Rx#: [id number] Output: Urine 1825 Other: # Voids 1 Weight 124.5 kg 124.5 kg Gen: This is a 76-year-old male patient. He is sitting up in bed and appears to be comfortable and in no acute distress. HEENT: Head is atraumatic, normocephalic. Pupils equal, round. Sclerae is anicteric. NECK: Supple. No JVD. No lymphadenopathy. No thyromegaly. LUNGS: Clear to auscultation. No wheezes or rhonchi. No intercostal retractions. HEART: Regular rate and rhythm. Systolic murmur. ABDOMEN: Soft. Bowel sounds are present. No masses. No tenderness. EXTREMITIES: Minimal left pedal edema. No calf tenderness. Dorsalis pedis +1 bilaterally. NEUROLOGICAL: Patient is awake, alert and oriented x3. Cranial nerves 2 through 12 are grossly intact. Results CBC & Chem 7: 07/06/17 17:51 07/06/17 17:51 Labs: Abnormal Lab Results - Last 24 Hours (Table) 07/06/17 07/06/17 07/06/17 Range/Units 17:51 17:51 17:51 WBC 11.2 H (3.8-10.6) k/uL RBC 3.78 L (4.30-5.90) m/uL Hgb 12.7 L (13.0-17.5) gm/dL Hct 37.2 L (39.0-53.0) % Neutrophils # 9.9 H (1.3-7.7) k/uL Lymphocytes # 0.8 L (1.0-4.8) k/uL APTT (22.0-30.0) sec D-Dimer (<0.60) mg/L FEU BUN 39 H (9-20) mg/dL Creatinine 1.30 H (0.66-1.25) mg/dL Glucose 183 H (74-99) mg/dL POC Glucose (mg/dL) (75-99) mg/dL Total Creatine Kinase (55-170) U/L CK-MB (CK-2) 2.6 H* (0.0-2.4) ng/mL Troponin I (0.000-0.034) ng/mL 07/06/17 07/06/17 07/07/17 Range/Units 17:51 20:50 01:08 WBC (3.8-10.6) k/uL RBC (4.30-5.90) m/uL Hgb (13.0-17.5) gm/dL Hct (39.0-53.0) % Neutrophils # (1.3-7.7) k/uL Lymphocytes # (1.0-4.8) k/uL APTT 20.8 L (22.0-30.0) sec D-Dimer 0.77 H (<0.60) mg/L FEU BUN (9-20) mg/dL Creatinine (0.66-1.25) mg/dL Glucose (74-99) mg/dL POC Glucose (mg/dL) 136 H (75-99) mg/dL Total Creatine Kinase (55-170) U/L CK-MB (CK-2) (0.0-2.4) ng/mL Troponin I 0.039 H* (0.000-0.034) ng/mL 07/07/17 07/07/17 07/07/17 Range/Units 01:08 07:39 07:39 WBC (3.8-10.6) k/uL RBC (4.30-5.90) m/uL Hgb (13.0-17.5) gm/dL Hct (39.0-53.0) % Neutrophils # (1.3-7.7) k/uL Lymphocytes # (1.0-4.8) k/uL APTT 31.5 H 54.6 H (22.0-30.0) sec D-Dimer (<0.60) mg/L FEU BUN (9-20) mg/dL Creatinine (0.66-1.25) mg/dL Glucose (74-99) mg/dL POC Glucose (mg/dL) (75-99) mg/dL Total Creatine Kinase 47 L (55-170) U/L CK-MB (CK-2) (0.0-2.4) ng/mL Troponin I 0.042 H* (0.000-0.034) ng/mL Thrombosis Risk Factor Assmnt - DVT/VTE Prophylaxis DVT/VTE Prophylaxis: Pharmacologic Prophylaxis ordered - Choose All That Apply Each Factor Represents 1 point: Obesity (BMI >25) Each Risk Factor Represents 3 Points: Age 75 years or older Thrombosis Risk Factor Assessment Total Risk Factor Score: 4 Thrombosis Risk Factor Assessment Level: Moderate Risk Assessment and Plan Plan: 1. Chest pain with mildly elevated troponins in a patient with known history of coronary artery disease. Cardiology consult. Continue aspirin, IV heparin drip, echocardiogram ordered. Continue Plavix 75 mg daily, Lasix 40 mg twice daily, Lopressor 25 mg twice daily. 2. Known history of coronary artery disease status post 2 vessel CABG in 1993. Continue as in #1. 3. Severe peripheral vascular disease under the care of Dr Holt status post multiple stenting procedures, stable. Continue aspirin and Plavix. 4. History of severe aortic stenosis status post TAVR in 2016. 5. Hypertension. Continue amlodipine 10 mg daily, Lasix 40 mg twice daily, lisinopril 20 mg twice daily and Lopressor 25 mg twice daily 6. Hyperlipidemia. Continue Lipitor 7. Diabetes mellitus type 2. Metformin and Amaryl on hold. Continue Levemir 25 mg daily, NovoLog scale. 8. Chronic kidney disease stage III. Avoid nephrotoxic agents, repeat lab work tomorrow. 9. Recent treatment for tracheobronchitis. Patient will continue 2 more days of Z-Young as well as prednisone at a decreased dose. 10. DVT prophylaxis. Heparin. 11. GI prophylaxis. Pepcid. Patient will be admitted to the hospital for a minimum of 2 night stay. Discharge plan: Return home Impression and plan of care have been directed as dictated by the signing physician. Seble Ventura nurse practitioner acting as scribe for signing physician.
[2017-07-07] MEDS: INSULIN ASPART 100 UNIT/ML 1 ML 10 ML VIAL SQ SCH ×3 (12:23→21:12)
[2017-07-07 16:43] LABS: Glucose,Whole Blood 210 mg/dL (75-99)
[2017-07-07] MEDS: HEPARIN SOD,PORK IN 0.45% NACL 25,000 UNIT in 0.45% NACL 1 500ML.BAG IV SCH (17:49)
[2017-07-07 17:56] LABS: Hemoglobin A1C 6.4 % (4.0-6.0)
[2017-07-07 20:43] LABS: Glucose,Whole Blood 252 mg/dL (75-99)
[2017-07-08 06:13] LABS: Glucose,Whole Blood 101 mg/dL (75-99)
[2017-07-08] MEDS: INSULIN ASPART 100 UNIT/ML 1 ML 10 ML VIAL SQ SCH ×4 (06:18→21:22)
[2017-07-08] MEDS: METOPROLOL TARTRATE 25 MG TAB PO SCH ×2 (06:48→20:07)
[2017-07-08] MEDS: ASPIRIN 325 MG TAB PO SCH (06:48)
[2017-07-08] MEDS: amLODIPine 10 MG TAB PO SCH (06:48)
[2017-07-08] MEDS: CLOPIDOGREL 75 MG TAB PO SCH (06:48)
[2017-07-08] MEDS: LISINOPRIL 20 MG TAB PO SCH ×2 (06:49→20:07)
[2017-07-08] MEDS: FAMOTIDINE 20 MG TAB PO SCH (06:49)
[2017-07-08] MEDS: ATORVASTATIN 40 MG TAB PO SCH (06:49)
[2017-07-08] MEDS: AZITHROMYCIN 250 MG TAB PO SCH (06:49)
[2017-07-08 08:59] LABS: Anion Gap 10 mmol/L; Blood Urea Nitrogen 34 mg/dL (9-20); Calcium 8.9 mg/dL (8.4-10.2); Carbon Dioxide 25 mmol/L (22-30); Chloride 103 mmol/L (98-107); Glucose 90 mg/dL (74-99); Potassium 3.8 mmol/L (3.5-5.1); Sodium 138 mmol/L (137-145)
[2017-07-08] MEDS ORDERED: predniSONE 20 MG TAB PO ONE (09:00)
[2017-07-08] MEDS ORDERED: NITROGLYCERIN SL TABS 0.4 MG TAB SUBLINGUAL PRN (09:13)
[2017-07-08] MEDS ORDERED: ATORVASTATIN 40 MG TAB PO STA (09:13)
[2017-07-08] MEDS ORDERED: ASPIRIN 325 MG TAB PO STA (09:13)
[2017-07-08] MEDS ORDERED: ALPRAZolam 0.5 MG TAB PO PRN (09:13)
[2017-07-08] MEDS ORDERED: ALPRAZolam 0.25 MG TAB PO PRN (09:13)
[2017-07-08] MEDS ORDERED: SODIUM CHLORIDE 0.9% 1,000 ML in EMPTY BAG 1 BAG IV ONE (09:13)
[2017-07-08] MEDS ORDERED: MIDAZOLAM 2 MG/2 ML VIAL ONE (10:37)
[2017-07-08] MEDS ORDERED: LIDOCAINE 2% INJ 20 MG/ML (20 ML MDV) ONE ×3 (10:37→11:05)
[2017-07-08] MEDS ORDERED: VERAPAMIL 2.5 MG/ML 2 ML AMP ONE (11:04)
[2017-07-08] MEDS ORDERED: HEPARIN SODIUM 1,000 UN/ML (10ML VL) ONE (11:04)
[2017-07-08] MEDS ORDERED: diphenhydrAMINE 50 MG/ML 1 ML VIAL ONE (11:34)
[2017-07-08] MEDS ORDERED: fentaNYL (PF) 50 MCG/ML 2 ML AMP ONE (11:34)
[2017-07-08] MEDS ORDERED: diphenhydrAMINE 50 MG/ML 1 ML VIAL IVP ONE (11:37)
[2017-07-08] MEDS ORDERED: fentaNYL (PF) 50 MCG/ML 2 ML AMP IVP ONE (11:37)
[2017-07-08] MEDS ORDERED: LIDOCAINE 2% INJ 20 MG/ML SQ ONE (11:37)
[2017-07-08] MEDS: VERAPAMIL SYRINGE (5 MG/10 ML) INTRAARTER ONE ×2 (11:40→12:05)
[2017-07-08] MEDS ORDERED: MIDAZOLAM 2 MG/2 ML VIAL IVP ONE (11:59)
[2017-07-08] MEDS ORDERED: IOHEXOL 350 MG/ML 125ML BOTTLE INJ ONE (12:07)
[2017-07-08] MEDS ORDERED: SODIUM CHLORIDE 0.9% 1,000 ML IV ONE (12:20)
[2017-07-08] MEDS ORDERED: RX INFO: IV CONTRAST WAS GIVEN 1 EACH MISC MISCELLANE PRN (12:34)
[2017-07-08] MEDS ORDERED: SODIUM CHLORIDE 0.9% 1,000 ML IV SCH (12:45)
[2017-07-08] MEDS: INSULIN DETEMIR 100 UNIT/ML 10 ML VIAL SQ SCH (13:00)
[2017-07-08] MEDS: MULTIVITAMINS, THERA 1 EACH TAB PO SCH (13:01)
[2017-07-08] MEDS: CHOLECALCIFEROL 1,000 UNIT TAB PO SCH (13:01)
[2017-07-08] MEDS: FUROSEMIDE 40 MG TAB PO SCH ×2 (13:01→20:07)
[2017-07-08] MEDS: ISOSORBIDE MONONITRATE ER 30 MG TAB.ER.24H PO SCH (13:02)
[2017-07-08 13:04] LABS: Glucose,Whole Blood 123 mg/dL (75-99)
--- NOTE | 2017-07-08 13:05 | CC ---
CARDIAC CATHETERIZATION REPORT Mr. Verdin is a 76-year-old male with a known history of coronary artery disease, status post coronary artery bypass grafting, percutaneous revascularization and status post TAVR and history of PAD with revascularization of lower extremities, who presented with symptoms of chest discomfort and minimal elevation of the troponin. In view of that, recommendation was made regarding cardiac catheterization. The procedures as well as the risks and complications were discussed with the patient who is in full understanding and agreement. PROCEDURE: Patient was brought to supervisor cytogenetic laboratory in a fasting semi-sedated state after receiving fentanyl and Benadryl and achieving moderate conscious sedated state. He was draped and prepped in conventional fashion. Using Xylocaine anesthesia in the Seldinger technique, a 6-Yemeni sheath was introduced in the left radial artery. Selective right and left coronary angiography performed using a 5-Yemeni 4 bend left Nafisa catheter and a 6-Yemeni 5 bend right Nafisa catheter. Images of the coronary arteries including hemiaxial views obtained and the TELLO was cannulated using using a 5-Yemeni 4 bend right Nafisa catheter. Images of the TELLO were obtained. The right Nafisa catheter was used to cross the aortic valve and pressures were calculated. Following that, catheter and sheaths were removed. Hemostasis was obtained with deployment of a TR band. There was no immediate complication. Patient is returned to his room in stable condition. Of note, the patient received 5000 units of intravenous heparin as well as intra-arterial verapamil. FINDING: FLUOROSCOPY: There was significant calcification involving the coronary arteries. LEFT MAIN: This is a large-sized vessel, calcified, bifurcating in the left anterior descending artery and left circumflex. Left main coronary artery distally has a 40% to 50% plaque. The rest of the vessel has no high-grade stenosis. LEFT ANTERIOR DESCENDING ARTERY: This vessel gave rise to a diagonal branch that has diffuse intimal disease. Beyond that, the LAD is totally occluded with no significant antegrade flow. LEFT CIRCUMFLEX: This is a nondominant vessel. The AV groove of left circumflex is diffusely diseased with diffuse plaque and area of stenosis up to 80%. The obtuse marginal branch totally occluded. RIGHT CORONARY ARTERY: This vessel is dominant, large in caliber bifurcating distally PDA posterolateral segment and branches diffusely diseased throughout its course. The proximal right coronary artery and the mid right coronary artery have eccentric lesion of about 50% that showed no progression compared with the images obtained in 2016. The rest of the vessel has no high-grade stenosis. COLLATERALS: There is collaterals from the right coronary artery toward the obtuse marginal branch and it is small in caliber. TELLO TO THE LAD: The distal anastomotic site is patent. The flow into the LAD is brisk. There is diffuse intimal disease in the LAD. LEFT VENTRICULOGRAM: Left ventriculogram was not performed. HEMODYNAMICS: There was no gradient across the aortic valve. The left ventricular end- diastolic pressure was 20 mmHg. CONCLUSION: 1. Patent TELLO to LAD with diffuse intimal disease into the [place] LAD. 2. Totally occluded mid LAD. 3. Moderate disease in distal left main. 4. Moderate disease in the right coronary artery with no progression of disease. 5. Totally occluded obtuse marginal branch, which is chronic. RECOMMENDATION: In view of finding and anatomy, I recommend to continue medical therapy with aggressive coronary risk modification that has been initiated. I do not feel that the patient is a good candidate for percutaneous revascularization with the lack of progression compared with 2016. Those findings and recommendations were discussed with the patient and his family are in full understanding and agreement. Duration of procedure is 38 minutes. MMODL / IJN: [id number] /
--- NOTE | 2017-07-08 13:08 | CC ---
CARDIAC CATHETERIZATION REPORT July 08, 2017 Re: Viraj Verdin Dear Dr. Garrett: I had the opportunity to perform cardiac catheterization on Mr. Verdin at [facility] on the 08 of July and a full copy of the procedure note will be forwarded to you. In brief, he was found to have diffuse disease with no significant progression compared with the images obtained in 2016 and based on those findings, I recommended to continue medical therapy with aggressive coronary risk modifications that have been initiated. Thank you again for allowing me the opportunity to participate in his care. Please feel free to call for any questions. Sincerely yours, MD FADY HallL / PRABHJOTN: [id number] /
--- NOTE | 2017-07-08 14:15 | P.PN ---
Subjective Progress Note Date: 07/08/17 This is a 76-year-old male patient of Dr. Aristeo Garrett with past medical history of coronary artery disease status post 2 vessel coronary artery bypass graft in 1993 with multiple subsequent percutaneous revascularization, severe aortic stenosis status post aortic valve replacement, severe peripheral artery disease with bilateral lower extremity intermittent claudication status post atherectomy of the right superficial femoral artery, balloon angioplasty, stenting of the left superficial femoral artery stenting of the right external iliac artery, stenting of the left external iliac artery, pacemaker placement, diabetes mellitus type 2, hypertension, hyperlipidemia, osteoarthritis, skin cancer. Patient states that he has been having chest pain for the last 3-4 days and thought it was because he had phlegm. He has had a cough with slightly yellow sputum production. He has been on a Z-Young and oral prednisone 50 mg 5 days. He states he has 1 or 2 more days left on his prescriptions. He states that the pain in his chest comes and goes with activity and he also has difficulty breathing. He denies any pain to his arms, sweats. HEENT has been taking nitroglycerin which cleared the pain. He has had some nausea or decreased appetite with no vomiting, no abdominal pain. He has chronic left lower extremity edema but otherwise no change. He denies any sore throat. Patient took nitroglycerin at home and by the time ambulance came he was pain- free. He also took an aspirin before he left his home. At the time of this evaluation, patient denies having any chest pain or shortness of breath. Patient presented to [facility] emergency center for evaluation. Vital signs were stable. Pulse ox was 96% on room air. White count was 11.2, hemoglobin 12.7, d-dimer 0.77. BUN 39 creatinine 1.30. Electrolytes were within normal limits. Blood sugar 183. Troponins 0.018, 0.039, 0.04 to EKG was a paced rhythm. Patient underwent a CTA of the chest which was negative for pulmonary embolism. Small hiatal hernia. Chest x-ray showed no acute pulmonary process. Patient was started on Nitropaste heparin drip and admitted to the selective care unit and cardiology consult requested. 07/08: Patient is scheduled for heart catheterization today the right wrist finding patent TELLO to LAD with diffuse intimal disease into the [place] LAD, totally occluded mid LAD, moderate disease in the distal left main, moderate disease in the right coronary artery with no progression of disease, totally occluded obtuse marginal branch which is chronic, 80% stenosis of the left circumflex. Recommendations to maximize medical therapy. Patient is seen postprocedure. He denies having any chest pain or shortness of breath. Patient states he normally has a bowel movement every 3-4 days but does not need anything for constipation. Anticipate probable discharge tomorrow. Objective - Vital Signs Vital signs: Vital Signs Temp 97.2 F L 07/08/17 09:14 Pulse 63 07/08/17 09:14 Resp 18 07/08/17 09:14 BP 123/67 07/08/17 09:14 Pulse Ox 97 07/08/17 09:14 Intake & Output 07/07/17 07/08/17 07/08/17 18:59 06:59 18:59 Intake Total 1423.899 368 Balance 1423.899 368 Weight 119.1 kg Intake: IV 368 Heparin Sod,Pork in 0.45% 268 NaCl 25,000 unit In 0.45 % NaCl 1 500ml.bag @ 8.7 UNITS/KG/HR 19.96 mls/hr IV .Q24H MINA Rx#: [id number] Sodium Chloride 0.9% 1, 100 000 ml @ 75 mls/hr IV . [id number] STA Rx#:[id number] Intake, IV Titration 503.899 Amount Heparin Sod,Pork in 0.45% 383.899 NaCl 25,000 unit In 0.45 % NaCl 1 500ml.bag @ 8.7 UNITS/KG/HR 19.96 mls/hr IV .Q24H MINA Rx#: [id number] Sodium Chloride 0.9% 1, 120 000 ml @ 75 mls/hr IV . [id number] STA Rx#:[id number] Oral 920 Other: Voiding Method Toilet Toilet # Voids 1 - Exam Gen: This is a 76-year-old male patient. He is sitting up at the edge of the bed and appears to be comfortable and in no acute distress. HEENT: Head is atraumatic, normocephalic. Pupils equal, round. Sclerae is anicteric. NECK: Supple. No JVD. No lymphadenopathy. No thyromegaly. LUNGS: Clear to auscultation. No wheezes or rhonchi. No intercostal retractions. HEART: Regular rate and rhythm. Systolic murmur. ABDOMEN: Soft. Bowel sounds are present. No masses. No tenderness. EXTREMITIES: Minimal left pedal edema. No calf tenderness. Dorsalis pedis +1 bilaterally. NEUROLOGICAL: Patient is awake, alert and oriented x3. Cranial nerves 2 through 12 are grossly intact. - Labs CBC & Chem 7: 07/06/17 17:51 07/08/17 08:06 Labs: Abnormal Lab Results - Last 24 Hours (Table) 07/07/17 07/07/17 07/07/17 Range/Units 07:39 11:48 16:34 APTT (22.0-30.0) sec BUN (9-20) mg/dL POC Glucose (mg/dL) 160 H 210 H (75-99) mg/dL Hemoglobin A1c 6.4 H (4.0-6.0) % 07/07/17 07/08/17 07/08/17 Range/Units 20:42 06:11 08:06 APTT 43.8 H (22.0-30.0) sec BUN (9-20) mg/dL POC Glucose (mg/dL) 252 H 101 H (75-99) mg/dL Hemoglobin A1c (4.0-6.0) % 07/08/17 Range/Units 08:06 APTT (22.0-30.0) sec BUN 34 H (9-20) mg/dL POC Glucose (mg/dL) (75-99) mg/dL Hemoglobin A1c (4.0-6.0) % Assessment and Plan Plan: 1. Chest pain with mildly elevated troponins in a patient with known history of coronary artery disease. Cardiology consult. Continue aspirin, Plavix 75 mg daily, Lasix 40 mg twice daily, Lopressor 25 mg twice daily. 2. Known history of coronary artery disease status post 2 vessel CABG in 1993. Continue as in #1. 3. Severe peripheral vascular disease under the care of Dr Holt status post multiple stenting procedures, stable. Continue aspirin and Plavix. 4. History of severe aortic stenosis status post TAVR in 2016. 5. Hypertension. Continue amlodipine 10 mg daily, Lasix 40 mg twice daily, lisinopril 20 mg twice daily and Lopressor 25 mg twice daily 6. Hyperlipidemia. Continue Lipitor 7. Diabetes mellitus type 2. Metformin and Amaryl on hold. Continue Levemir 25 mg daily, NovoLog scale. 8. Chronic kidney disease stage III. Avoid nephrotoxic agents, repeat lab work tomorrow. 9. Recent treatment for tracheobronchitis. Patient will continue 2 more days of Z-Young as well as prednisone at a decreased dose. 10. DVT prophylaxis. Heparin. 11. GI prophylaxis. Pepcid. Discharge plan: Return home Impression and plan of care have been directed as dictated by the signing physician. Seble Ventura nurse practitioner acting as scribe for signing physician.
[2017-07-08] MEDS ORDERED: MORPHINE ORAL SOLN 10 MG/5 ML CUP PO PRN (15:04)
[2017-07-08 17:09] LABS: Glucose,Whole Blood 193 mg/dL (75-99)
--- NOTE | 2017-07-08 19:08 | ECHOF ---
Referral Reason:LVF MEASUREMENTS -------- HEIGHT: 177.8 cm WEIGHT: 118.8 kg BP: 126/65 RVIDd: 3.7 cm (< 3.3) IVSd: 1.3 cm (0.6 - 1.1) LVIDd: 6.0 cm (3.9 - 5.3) LVPWd: 1.3 cm (0.6 - 1.1) IVSs: 1.7 cm LVIDs: 4.8 cm LVPWs: 1.7 cm LAESV Index (A-L): 41.81 ml/m Ao Diam: 3.1 cm (2.0 - 3.7) MV EXCURSION: 19.600 mm (> 18.000) MV EF SLOPE: 58 mm/s (70 - 150) EPSS: 1.5 cm MV E Rasta: 1.25 m/s MV DecT: 250 ms MV A Rasta: 1.19 m/s MV E/A Ratio: 1.05 AV maxP.05 mmHg AV meanP.84 mmHg RAP: 5.00 mmHg RVSP: 37.66 mmHg FINDINGS -------- Sinus rhythm. This was a technically difficult study with suboptimal views. The left ventricle is mildly dilated. There is mild concentric left ventricular hypertrophy. Over all left ventricular systolic function is mild-moderately impaired with, an EF between 40 - 45 %. The right ventricle is mildly enlarged. LA is severely dilated >40 ml/m2 The right atrium is normal in size. 2.5 ml of Lumason was utilized for enhancement of images. Peak/mean gradient across the Aortic Valve is 15.05mmHg / 7.84mmHg. Normal porcine bioprosthetic ao rtic valve. There is trivial regurgitation of the bioprosthetic aortic valve. The mitral valve leaflets are mildly thickened. Mild mitral annular calcification present. Mild m itral regurgitation is present. Mild tricuspid regurgitation present. There is mild pulmonary hypertension. The right ventricular systolic pressure, as measured by Doppler, is 37.66mmHg. The pulmonic valve was not well visualized. The aortic root size is normal. IVC Not well visulized. There is a trivial pericardial effusion present. CONCLUSIONS -------- 1. Sinus rhythm. 2. This was a technically difficult study with suboptimal views. 3. The left ventricle is mildly dilated. 4. There is mild concentric left ventricular hypertrophy. 5. Overall left ventricular systolic function is mild-moderately impaired with, an EF between 40 - 45 %. 6. The right ventricle is mildly enlarged. 7. LA is severely dilated >40 ml/m2 8. The right atrium is normal in size. 9. 2.5 ml of Lumason was utilized for enhancement of images. 10. Peak/mean gradient across the Aortic Valve is 15.05mmHg / 7.84mmHg. 11. Normal porcine bioprosthetic aortic valve. 12. There is trivial regurgitation of the bioprosthetic aortic valve. 13. The mitral valve leaflets are mildly thickened. 14. Mild mitral annular calcification present. 15. Mild mitral regurgitation is present. 16. Mild tricuspid regurgitation present. 17. There is mild pulmonary hypertension. 18. The right ventricular systolic pressure, as measured by Doppler, is 37.66mmHg. 19. The pulmonic valve was not well visualized. 20. The aortic root size is normal. 21. IVC Not well visulized. 22. There is a trivial pericardial effusion present. COAT CHECK ATTENDANT: Connie Aragon RDCS
[2017-07-08 21:16] LABS: Glucose,Whole Blood 216 mg/dL (75-99)
[2017-07-09 05:57] LABS: Glucose,Whole Blood 114 mg/dL (75-99)
[2017-07-09] MEDS: INSULIN ASPART 100 UNIT/ML 1 ML 10 ML VIAL SQ SCH ×4 (06:00→21:35)
[2017-07-09 06:51] LABS: Anion Gap 8 mmol/L; Blood Urea Nitrogen 30 mg/dL (9-20); Calcium 8.9 mg/dL (8.4-10.2); Carbon Dioxide 28 mmol/L (22-30); Chloride 102 mmol/L (98-107); Glucose 103 mg/dL (74-99); Potassium 4.6 mmol/L (3.5-5.1); Sodium 138 mmol/L (137-145)
[2017-07-09] MEDS: amLODIPine 10 MG TAB PO SCH (07:49)
[2017-07-09] MEDS: INSULIN DETEMIR 100 UNIT/ML 10 ML VIAL SQ SCH (07:49)
[2017-07-09] MEDS: ATORVASTATIN 40 MG TAB PO SCH (07:50)
[2017-07-09] MEDS: ASPIRIN 81 MG PO SCH (07:50)
[2017-07-09] MEDS: ISOSORBIDE MONONITRATE ER 30 MG TAB.ER.24H PO SCH (07:50)
[2017-07-09] MEDS: FUROSEMIDE 40 MG TAB PO SCH ×2 (07:50→20:14)
[2017-07-09] MEDS: CLOPIDOGREL 75 MG TAB PO SCH (07:50)
[2017-07-09] MEDS: FAMOTIDINE 20 MG TAB PO SCH (07:50)
[2017-07-09] MEDS: METOPROLOL TARTRATE 25 MG TAB PO SCH ×2 (07:51→20:14)
[2017-07-09] MEDS: LISINOPRIL 20 MG TAB PO SCH ×2 (07:51→20:14)
[2017-07-09 11:52] LABS: Glucose,Whole Blood 92 mg/dL (75-99)
[2017-07-09] MEDS: CHOLECALCIFEROL 1,000 UNIT TAB PO SCH (12:36)
[2017-07-09] MEDS: MULTIVITAMINS, THERA 1 EACH TAB PO SCH (12:37)
--- NOTE | 2017-07-09 12:53 | CDI ---
Last Revision, April 2017 Documentation Clarification Form Date: 07/09/2017 12:39:00 PM From: Fina Corbin RN Admit Date: 07/08/2017 2:04:00 PM Patient Name: Viraj Verdin Visit Number: [id number] ATTENTION: The Clinical Documentation Specialists (CDI) and [facility] Coding Staff appreciate your assistance in clarifying documentation. Please respond to the clarification below the line at the bottom and electronically sign. The CDI & [facility] Coding staff will review the response and follow-up if needed. Please note: Queries are made part of the Legal Health Record. If you have any questions, please contact the author of this message via ITS. Dr. Johanna Rachel, Heart Failure is charted on 07/07, and 07/06 History/Risk Factors:. pacemaker, diabetes type 2, hypertension, hyperlipidemia, OA, skin cancer, CAD, coronary artery disease Clinical Indicators: Echocardiogram Results: EF 40-45% Cardiology consult Treatment: Lasix PO, Heparin IV monitor labs In your professional opinion, can you please clarify the acuity and type of CHF if known? Systolic Heart Failure: Acute Chronic Acute on Chronic Diastolic Heart Failure: Acute Chronic Acute on Chronic Systolic & Diastolic Heart Failure: Acute Chronic Acute on Chronic Heart Failure Unable to Determine Other, please specify Please continue to document in your progress notes and discharge summary in order to capture severity of illness and risk of mortality. Include clinical findings that support your diagnosis. MTDD
--- NOTE | 2017-07-09 13:15 | LTR ---
July 08, 2017 Re: Viraj Casedwick Dear Dr. Garrett: I had the opportunity to perform cardiac catheterization on Mr. Verdin at [facility] on the 08 of July and a full copy of the procedure note will be forwarded to you. In brief, he was found to have diffuse disease with no significant progression compared with the images obtained in 2016 and based on those findings, I recommended to continue medical therapy with aggressive coronary risk modifications that have been initiated. Thank you again for allowing me the opportunity to participate in his care. Please feel free to call for any questions. Sincerely yours, MD KAILA Hall / PRABHJOTN: [id number] /
--- NOTE | 2017-07-09 13:26 | P.PN ---
Subjective Progress Note Date: 07/09/17 This is a 76-year-old male patient of Dr. Aristeo Garrett with past medical history of coronary artery disease status post 2 vessel coronary artery bypass graft in 1993 with multiple subsequent percutaneous revascularization, severe aortic stenosis status post aortic valve replacement, severe peripheral artery disease with bilateral lower extremity intermittent claudication status post atherectomy of the right superficial femoral artery, balloon angioplasty, stenting of the left superficial femoral artery stenting of the right external iliac artery, stenting of the left external iliac artery, pacemaker placement, diabetes mellitus type 2, hypertension, hyperlipidemia, osteoarthritis, skin cancer. Patient states that he has been having chest pain for the last 3-4 days and thought it was because he had phlegm. He has had a cough with slightly yellow sputum production. He has been on a Z-Young and oral prednisone 50 mg 5 days. He states he has 1 or 2 more days left on his prescriptions. He states that the pain in his chest comes and goes with activity and he also has difficulty breathing. He denies any pain to his arms, sweats. HEENT has been taking nitroglycerin which cleared the pain. He has had some nausea or decreased appetite with no vomiting, no abdominal pain. He has chronic left lower extremity edema but otherwise no change. He denies any sore throat. Patient took nitroglycerin at home and by the time ambulance came he was pain- free. He also took an aspirin before he left his home. At the time of this evaluation, patient denies having any chest pain or shortness of breath. Patient presented to [facility] emergency center for evaluation. Vital signs were stable. Pulse ox was 96% on room air. White count was 11.2, hemoglobin 12.7, d-dimer 0.77. BUN 39 creatinine 1.30. Electrolytes were within normal limits. Blood sugar 183. Troponins 0.018, 0.039, 0.04 to EKG was a paced rhythm. Patient underwent a CTA of the chest which was negative for pulmonary embolism. Small hiatal hernia. Chest x-ray showed no acute pulmonary process. Patient was started on Nitropaste heparin drip and admitted to the selective care unit and cardiology consult requested. 07/08: Patient is scheduled for heart catheterization today the right wrist finding patent TELLO to LAD with diffuse intimal disease into the [place] LAD, totally occluded mid LAD, moderate disease in the distal left main, moderate disease in the right coronary artery with no progression of disease, totally occluded obtuse marginal branch which is chronic, 80% stenosis of the left circumflex. Recommendations to maximize medical therapy. Patient is seen postprocedure. He denies having any chest pain or shortness of breath. Patient states he normally has a bowel movement every 3-4 days but does not need anything for constipation. Anticipate probable discharge tomorrow. 07/09: BUN 30 and creatinine 1.28. Patient has been afebrile. Blood blood glucose running 114-216. Hemoglobin A1c is 6.4. Triglycerides 136, cholesterol 140, LDL 48, HDL 65. Echocardiogram reveals mild concentric left ventricular hypertrophy, EF 40-45%, right ventricle is mildly dilated, LA severely dilated a greater than 40, normal porcine bioprosthetic aortic valve with trivial regurgitation, mild mitral regurgitation, mild tricuspid regurgitation, mild pulmonary hypertension. Patient states that he ambulated a full length of the hallway but had shortness of breath with this. He did not sleep last night. His creatinine is 1.[address] Ford would like to keep him overnight in monitor. Patient may require outpatient angioplasty at a later time. Objective - Vital Signs Vital signs: Vital Signs Temp 97.3 F L 07/09/17 11:57 Pulse 96 07/09/17 11:57 Resp 18 07/09/17 11:57 BP 127/60 07/09/17 11:57 Pulse Ox 96 07/09/17 11:57 Intake & Output 07/08/17 07/09/17 07/09/17 18:59 06:59 18:59 Intake Total 660 500 440 Balance 660 500 440 Weight 119.2 kg Intake: IV 150 500 200 Sodium Chloride 0.9% 1, 500 200 000 ml @ 100 mls/hr IV . Q10H MINA Rx#:[id number] Intake, IV Titration 150 Amount Sodium Chloride 0.9% 1, 150 000 ml @ 100 mls/hr IV . Q10H MINA Rx#:[id number] Oral 360 240 Other: Voiding Method Toilet Toilet Toilet # Voids 1 1 - Exam Gen: This is a 76-year-old male patient. He is sitting up at the edge of the bed and appears to be comfortable and in no acute distress. HEENT: Head is atraumatic, normocephalic. Pupils equal, round. Sclerae is anicteric. NECK: Supple. No JVD. No lymphadenopathy. No thyromegaly. LUNGS: Clear to auscultation. No wheezes or rhonchi. No intercostal retractions. HEART: Regular rate and rhythm. Systolic murmur. ABDOMEN: Soft. Bowel sounds are present. No masses. No tenderness. EXTREMITIES: Minimal left pedal edema. No calf tenderness. Dorsalis pedis +1 bilaterally. NEUROLOGICAL: Patient is awake, alert and oriented x3. Cranial nerves 2 through 12 are grossly intact. - Labs CBC & Chem 7: 07/06/17 17:51 07/09/17 05:52 Labs: Abnormal Lab Results - Last 24 Hours (Table) 07/08/17 07/08/17 07/08/17 Range/Units 12:51 16:48 21:02 BUN (9-20) mg/dL Creatinine (0.66-1.25) mg/dL Glucose (74-99) mg/dL POC Glucose (mg/dL) 123 H 193 H 216 H (75-99) mg/dL 07/09/17 07/09/17 Range/Units 05:52 05:56 BUN 30 H (9-20) mg/dL Creatinine 1.28 H (0.66-1.25) mg/dL Glucose 103 H (74-99) mg/dL POC Glucose (mg/dL) 114 H (75-99) mg/dL Assessment and Plan Plan: 1. Chest pain secondary to coronary artery disease. Cardiology consult. Continue aspirin, Plavix 75 mg daily, Lasix 40 mg twice daily, Lopressor 25 mg twice daily, Imdur 30 mg daily. 2. Known history of coronary artery disease status post 2 vessel CABG in 1993. Continue as in #1. 3. Severe peripheral vascular disease under the care of Dr Holt status post multiple stenting procedures, stable. Continue aspirin and Plavix. 4. History of severe aortic stenosis status post TAVR in 2016. 5. Hypertension. Continue amlodipine 10 mg daily, Lasix 40 mg twice daily, lisinopril 20 mg twice daily and Lopressor 25 mg twice daily 6. Hyperlipidemia. Continue Lipitor 7. Diabetes mellitus type 2. Metformin and Amaryl on hold. Continue Levemir 25 mg daily, NovoLog scale. 8. Chronic kidney disease stage III. Avoid nephrotoxic agents, repeat lab work tomorrow. 9. Recent treatment for tracheobronchitis. Patient will continue 2 more days of Z-Young as well as prednisone at a decreased dose. 10. Chronic systolic heart failure. Patient is maintained on his home dose of Lasix. 11. DVT prophylaxis. Heparin. 12. GI prophylaxis. Pepcid. Discharge plan: Return home tomorrow. Impression and plan of care have been directed as dictated by the signing physician. Seble Ventura nurse practitioner acting as scribe for signing physician.
--- NOTE | 2017-07-09 13:58 | P.PN ---
Subjective Progress Note Date: 07/09/17 This is a pleasant 76-year-old gentleman who follows regularly with Dr. Ford in the office. He has known history of coronary artery disease with prior bypass surgery in 1993 at which time he underwent a TELLO to the LAD and saphenous vein graft to the OM1, subsequent to that patient has undergone multiple stent placements, patient also has severe peripheral vascular disease and has undergone multiple stent placements by Dr. Ramos, history also of diabetes, hypertension, hyperlipidemia, family history of premature coronary artery disease, and severe aortic stenosis status post TAVR in July 2015. 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 He did take a sublingual nitroglycerin at that time with relief of symptoms. Since then patient states even with minimal exertion he gets this discomfort, initially if he would sit down to rest the symptoms with side, now he does need to take nitroglycerin in order for the symptoms to resolve. He also states that he's had a recent cough and was treated with Zithromax for a possible bronchitis. At the time of my examination this morning, he is currently chest pain free. Blood pressure 130/60 with a heart rate in the 70s, 97% 2 L. White blood cell count 11.2, hemoglobin 12.7, platelet count 166. D- dimer 0.7. Sodium 139, potassium 4.8, BUN 39, creatinine 1.3. Troponins 0.018 , 0.039, 0.042. Chest X-ray does not reveal any acute process. EKG shows a paced rhythm with frequent PVCs. 07/09/2017 Cardiac catheterization was performed yesterday which revealed a patent TELLO to the LAD with diffuse intimal disease in the [place] LAD. Totally occluded mid LAD, moderate disease in the distal left main, moderate disease in the right coronary artery with no progression of disease. Totally occluded obtuse marginal branch which is chronic. The decision was made to maximize medical therapy. Patient was seen and examined this morning, denies any chest pain or difficulty in breathing he's been up ambulating without any difficulty. Sodium today 138, potassium 4.6, BUN 30, creatinine 1.2. Blood pressure 127/60 with a heart rate in the 70s to 80s. Objective - Vital Signs Vital signs: Vital Signs Temp 97.3 F L 07/09/17 11:57 Pulse 96 07/09/17 11:57 Resp 18 07/09/17 11:57 BP 127/60 07/09/17 11:57 Pulse Ox 96 07/09/17 11:57 Intake & Output 07/08/17 07/09/17 07/09/17 18:59 06:59 18:59 Intake Total 660 500 560 Balance 660 500 560 Weight 119.2 kg Intake: IV 150 500 200 Sodium Chloride 0.9% 1, 500 200 000 ml @ 100 mls/hr IV . Q10H [facility] Rx#:[id number] Intake, IV Titration 150 Amount Sodium Chloride 0.9% 1, 150 000 ml @ 100 mls/hr IV . Q10H [facility] Rx#:[id number] Oral 360 360 Other: Voiding Method Toilet Toilet Toilet # Voids 1 1 - Exam PHYSICAL EXAMINATION: HEENT: Head is atraumatic, normocephalic. Pupils equal, round. Neck is supple. There is no elevated jugular venous pressure. HEART EXAMINATION: Heart S1 and S2 systolic murmur is heard. CHEST EXAMINATION: Lungs are clear to auscultation and precussion. No chest wall tenderness is noted on palpation or with deep breathing. ABDOMEN: Soft, obese, nontender. Bowel sounds are heard. No organomegaly noted. EXTREMITIES: 1+ peripheral pulses with no evidence of peripheral edema and no calf tenderness noted. NEUROLOGIC patient is awake, alert and oriented -3. - Labs CBC & Chem 7: 07/06/17 17:51 07/09/17 05:52 Labs: Abnormal Lab Results - Last 24 Hours (Table) 07/08/17 07/08/17 07/09/17 Range/Units 16:48 21:02 05:52 BUN 30 H (9-20) mg/dL Creatinine 1.28 H (0.66-1.25) mg/dL Glucose 103 H (74-99) mg/dL POC Glucose (mg/dL) 193 H 216 H (75-99) mg/dL 07/09/17 Range/Units 05:56 BUN (9-20) mg/dL Creatinine (0.66-1.25) mg/dL Glucose (74-99) mg/dL POC Glucose (mg/dL) 114 H (75-99) mg/dL Assessment and Plan Plan: Assessment and plan #1 symptoms of exertional chest discomfort with abnormality in troponins suggesting acute coronary syndrome. EKG shows a paced rhythm. Status post cardiac catheterization, medical therapy advised. #2 known history of coronary artery disease with prior bypass surgery in 1993 with TELLO to the LAD and saphenous vein graft to the OM1. Subsequent multiple stenting. #3 peripheral vascular disease with multiple stenting procedures. #4 history of severe aortic stenosis status post TAVR in 2016 Number 5 hypertension #6 diabetes #7 hyperlipidemia #8 prior pacemaker implantation #9 mild renal insufficiency, creatinine 1.2 Plan We will continue to hydrate the patient, check lytes BUN and creatinine in the morning. Plan on possible discharge home in the morning if stable. DNP note has been reviewed, I agree with a documented findings and plan of care. Patient was seen and examined.
[2017-07-09 17:15] LABS: Glucose,Whole Blood 125 mg/dL (75-99)
[2017-07-09 21:32] LABS: Glucose,Whole Blood 137 mg/dL (75-99)
[2017-07-10 06:02] LABS: Glucose,Whole Blood 116 mg/dL (75-99)
[2017-07-10] MEDS: INSULIN ASPART 100 UNIT/ML 1 ML 10 ML VIAL SQ SCH (06:09)
[2017-07-10 07:11] LABS: Potassium 4.1 mmol/L (3.5-5.1)
[2017-07-10 10:00] VITALS: BP 131/61; PULSE 80; RESP 18; TEMP 97
[2017-07-10] MEDS: ASPIRIN 81 MG PO SCH (10:01)
[2017-07-10] MEDS: FUROSEMIDE 40 MG TAB PO SCH (10:01)
[2017-07-10] MEDS: LISINOPRIL 20 MG TAB PO SCH (10:02)
[2017-07-10] MEDS: METOPROLOL TARTRATE 25 MG TAB PO SCH (10:02)
[2017-07-10] MEDS: amLODIPine 10 MG TAB PO SCH (10:02)
[2017-07-10] MEDS: ISOSORBIDE MONONITRATE ER 30 MG TAB.ER.24H PO SCH (10:02)
[2017-07-10] MEDS: FAMOTIDINE 20 MG TAB PO SCH (10:03)
[2017-07-10] MEDS: ATORVASTATIN 40 MG TAB PO SCH (10:03)
[2017-07-10] MEDS: CLOPIDOGREL 75 MG TAB PO SCH (10:03)
[2017-07-10] MEDS: INSULIN DETEMIR 100 UNIT/ML 10 ML VIAL SQ SCH (10:06)
--- NOTE | 2017-07-10 12:06 | P.PN ---
Subjective Progress Note Date: 07/10/17 This is a pleasant 76-year-old gentleman who follows regularly with Dr. Ford in the office. He has known history of coronary artery disease with prior bypass surgery in 1993 at which time he underwent a TELLO to the LAD and saphenous vein graft to the OM1, subsequent to that patient has undergone multiple stent placements, patient also has severe peripheral vascular disease and has undergone multiple stent placements by Dr. Ramos, history also of diabetes, hypertension, hyperlipidemia, family history of premature coronary artery disease, and severe aortic stenosis status post TAVR in July 2015. 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 He did take a sublingual nitroglycerin at that time with relief of symptoms. Since then patient states even with minimal exertion he gets this discomfort, initially if he would sit down to rest the symptoms with side, now he does need to take nitroglycerin in order for the symptoms to resolve. He also states that he's had a recent cough and was treated with Zithromax for a possible bronchitis. At the time of my examination this morning, he is currently chest pain free. Blood pressure 130/60 with a heart rate in the 70s, 97% 2 L. White blood cell count 11.2, hemoglobin 12.7, platelet count 166. D- dimer 0.7. Sodium 139, potassium 4.8, BUN 39, creatinine 1.3. Troponins 0.018 , 0.039, 0.042. Chest X-ray does not reveal any acute process. EKG shows a paced rhythm with frequent PVCs. 07/09/2017 Cardiac catheterization was performed yesterday which revealed a patent TELLO to the LAD with diffuse intimal disease in the [place] LAD. Totally occluded mid LAD, moderate disease in the distal left main, moderate disease in the right coronary artery with no progression of disease. Totally occluded obtuse marginal branch which is chronic. The decision was made to maximize medical therapy. Patient was seen and examined this morning, denies any chest pain or difficulty in breathing he's been up ambulating without any difficulty. Sodium today 138, potassium 4.6, BUN 30, creatinine 1.2. Blood pressure 127/60 with a heart rate in the 70s to 80s. 07/10/2017 Patient seen and examined this morning, he's been up ambulating in the hallway without any difficulty. Denies any chest discomfort, breathing is overall stable. BUN 31, creatinine 1.3, potassium 4.1. Blood pressure 130/60 with a heart rate in the 80s, 95% on room air. Objective - Vital Signs Vital signs: Vital Signs Temp 97.0 F L 07/10/17 08:00 Pulse 80 07/10/17 08:00 Resp 18 07/10/17 08:00 BP 131/61 07/10/17 08:00 Pulse Ox 95 07/10/17 08:00 Intake & Output 07/09/17 07/10/17 07/10/17 18:59 06:59 18:59 Intake Total 800 240 Balance 800 240 Weight 116.4 kg Intake: IV 200 Sodium Chloride 0.9% 1, 200 000 ml @ 100 mls/hr IV . Q10H [facility] Rx#:[id number] Oral 600 240 Other: Voiding Method Toilet Toilet # Voids 1 3 - Exam PHYSICAL EXAMINATION: HEENT: Head is atraumatic, normocephalic. Pupils equal, round. Neck is supple. There is no elevated jugular venous pressure. HEART EXAMINATION: Heart S1 and S2 systolic murmur is heard. CHEST EXAMINATION: Lungs are clear to auscultation and precussion. No chest wall tenderness is noted on palpation or with deep breathing. ABDOMEN: Soft, obese, nontender. Bowel sounds are heard. No organomegaly noted. EXTREMITIES: 1+ peripheral pulses with no evidence of peripheral edema and no calf tenderness noted. NEUROLOGIC patient is awake, alert and oriented -3. - Labs CBC & Chem 7: 07/06/17 17:51 07/10/17 05:58 Labs: Abnormal Lab Results - Last 24 Hours (Table) 07/09/17 07/09/17 07/10/17 Range/Units 16:48 21:31 05:58 BUN 31 H (9-20) mg/dL Creatinine 1.36 H (0.66-1.25) mg/dL Glucose 103 H (74-99) mg/dL POC Glucose (mg/dL) 125 H 137 H (75-99) mg/dL 07/10/17 Range/Units 05:59 BUN (9-20) mg/dL Creatinine (0.66-1.25) mg/dL Glucose (74-99) mg/dL POC Glucose (mg/dL) 116 H (75-99) mg/dL Assessment and Plan Plan: Assessment and plan #1 symptoms of exertional chest discomfort with abnormality in troponins suggesting acute coronary syndrome. EKG shows a paced rhythm. Status post cardiac catheterization, medical therapy advised. #2 known history of coronary artery disease with prior bypass surgery in 1993 with TELLO to the LAD and saphenous vein graft to the OM1. Subsequent multiple stenting. #3 peripheral vascular disease with multiple stenting procedures. #4 history of severe aortic stenosis status post TAVR in 2016 Number 5 hypertension #6 diabetes #7 hyperlipidemia #8 prior pacemaker implantation #9 mild renal insufficiency, creatinine 1.2 Plan From cardiology's perspective, we will continue the patient on his current medications. He may be able to be discharged home if cleared by primary. We will make him a follow-up appointment to see Dr. Ford in the office, lytes BUN and creatinine in one week. DNP note has been reviewed, I agree with a documented findings and plan of care. Patient was seen and examined.
--- NOTE | 2017-07-10 17:25 | P.DS ---
Providers Date of admission: 07/08/17 14:04 Attending physician: Johanna Rachel MD Consults: 07/06/17 19:22 Consult Physician Urgent Consulting Provider: Edin Ghotra Consult Reason/Comments: cad Do you want consulting provider notified?: Yes Primary care physician: Aristeo Garrett [facility] Hospital Course: This is a 76-year-old male patient of Dr. Aristeo Garrett with past medical history of coronary artery disease status post 2 vessel coronary artery bypass graft in 1993 with multiple subsequent percutaneous revascularization, severe aortic stenosis status post aortic valve replacement, severe peripheral artery disease with bilateral lower extremity intermittent claudication status post atherectomy of the right superficial femoral artery, balloon angioplasty, stenting of the left superficial femoral artery stenting of the right external iliac artery, stenting of the left external iliac artery, pacemaker placement, diabetes mellitus type 2, hypertension, hyperlipidemia, osteoarthritis, skin cancer. Patient states that he has been having chest pain for the last 3-4 days and thought it was because he had phlegm. He has had a cough with slightly yellow sputum production. He has been on a Z-Young and oral prednisone 50 mg 5 days. He states he has 1 or 2 more days left on his prescriptions. He states that the pain in his chest comes and goes with activity and he also has difficulty breathing. He denies any pain to his arms, sweats. HEENT has been taking nitroglycerin which cleared the pain. He has had some nausea or decreased appetite with no vomiting, no abdominal pain. He has chronic left lower extremity edema but otherwise no change. He denies any sore throat. Patient took nitroglycerin at home and by the time ambulance came he was pain- free. He also took an aspirin before he left his home. At the time of this evaluation, patient denies having any chest pain or shortness of breath. Patient presented to [facility] emergency center for evaluation. Vital signs were stable. Pulse ox was 96% on room air. White count was 11.2, hemoglobin 12.7, d-dimer 0.77. BUN 39 creatinine 1.30. Electrolytes were within normal limits. Blood sugar 183. Troponins 0.018, 0.039, 0.04 to EKG was a paced rhythm. Patient underwent a CTA of the chest which was negative for pulmonary embolism. Small hiatal hernia. Chest x-ray showed no acute pulmonary process. Patient was started on Nitropaste heparin drip and admitted to the selective care unit and cardiology consult requested. 07/08: Patient is scheduled for heart catheterization today the right wrist finding patent TELLO to LAD with diffuse intimal disease into the [place] LAD, totally occluded mid LAD, moderate disease in the distal left main, moderate disease in the right coronary artery with no progression of disease, totally occluded obtuse marginal branch which is chronic, 80% stenosis of the left circumflex. Recommendations to maximize medical therapy. Patient is seen postprocedure. He denies having any chest pain or shortness of breath. Patient states he normally has a bowel movement every 3-4 days but does not need anything for constipation. Anticipate probable discharge tomorrow. 07/09: BUN 30 and creatinine 1.28. Patient has been afebrile. Blood blood glucose running 114-216. Hemoglobin A1c is 6.4. Triglycerides 136, cholesterol 140, LDL 48, HDL 65. Echocardiogram reveals mild concentric left ventricular hypertrophy, EF 40-45%, right ventricle is mildly dilated, LA severely dilated a greater than 40, normal porcine bioprosthetic aortic valve with trivial regurgitation, mild mitral regurgitation, mild tricuspid regurgitation, mild pulmonary hypertension. Patient states that he ambulated a full length of the hallway but had shortness of breath with this. He did not sleep last night. His creatinine is 1.[address] Ford would like to keep him overnight in monitor. Patient may require outpatient angioplasty at a later time. 07/10: Patient examined at bedside. Denies any complains of chest pain or breathing difficulty. Repeat creatinine 1.36 on examination. Patient need to get repeat labs in one week. Discharge diagnoses: 1. Chest pain secondary to 2. Known history of coronary artery disease status post 2 vessel CABG in 1993. 3. Severe peripheral vascular disease under the care of Dr Holt status post multiple stenting procedures, stable. 4. History of severe aortic stenosis status post TAVR in 2016. 5. Hypertension. 6. Hyperlipidemia. 7. Diabetes mellitus type 2. 8. Chronic kidney disease stage III. 9. Recent treatment for tracheobronchitis. Discharge plan: Return home Patient Condition at Discharge: Stable Plan - Discharge Summary Discharge Rx Participant: No New Discharge Prescriptions: New Isosorbide Mononitrate ER [Imdur] 30 mg PO DAILY #30 tab.er.24h Continue amLODIPine [Norvasc] 10 mg PO QAM Atorvastatin Calcium [Lipitor] 40 mg PO DAILY Aspirin 325 mg PO DAILY Enalapril [Vasotec] 10 mg PO BID Clopidogrel [Plavix] 75 mg PO QAM Glimepiride [Amaryl] 1 mg PO BID Insulin Detemir [Levemir Flextouch] 25 units SQ QAM Furosemide [Lasix] 40 mg PO BID Cholecalciferol [Vitamin D3] 2,000 unit PO DAILY Multivit-Mins/Iron/Folic/Lycop [Centrum Men's Tablet] 1 tab PO DAILY Nitroglycerin 0.4 mg SL DIRECTED PRN PRN Reason: Angina Metoprolol Tartrate [Lopressor] 25 mg PO BID metFORMIN HCL [Glucophage] 500 mg PO DAILY Discontinued predniSONE 50 mg PO DAILY Azithromycin [Zithromax Z-pack] See Taper PO DIRECTED Discharge Medication List Aspirin 325 mg PO DAILY 06/06/15 [History] Atorvastatin Calcium [Lipitor] 40 mg PO DAILY 06/06/15 [History] Clopidogrel [Plavix] 75 mg PO QAM 06/06/15 [History] Enalapril [Vasotec] 10 mg PO BID 06/06/15 [History] Glimepiride [Amaryl] 1 mg PO BID 06/06/15 [History] amLODIPine [Norvasc] 10 mg PO QAM 06/06/15 [History] Insulin Detemir [Levemir Flextouch] 25 units SQ QAM 02/20/16 [History] Furosemide [Lasix] 40 mg PO BID 03/06/16 [History] Cholecalciferol [Vitamin D3] 2,000 unit PO DAILY 04/13/16 [History] Multivit-Mins/Iron/Folic/Lycop [Centrum Men's Tablet] 1 tab PO DAILY 04/13/16 [ History] Nitroglycerin 0.4 mg SL DIRECTED PRN 04/12/17 [History] Metoprolol Tartrate [Lopressor] 25 mg PO BID 07/06/17 [History] metFORMIN HCL [Glucophage] 500 mg PO DAILY 07/06/17 [History] Isosorbide Mononitrate ER [Imdur] 30 mg PO DAILY #30 tab.er.24h 07/10/17 [Rx] Follow up Appointment(s)/Referral(s): Richard Ford MD [STAFF PHYSICIAN] - 1 Week (SPOKE TO [employer]. OFFICE WILL CALL WITH APPOINTMENT TIME.) Aristeo Garrett MD [Primary Care Provider] - 1-2 days Patient Instructions/Handouts: Chest Pain (DC), After Radial Heart Catheterization (GEN) Activity/Diet/Wound Care/Special Instructions: Pt would like DC RX Discharge Disposition: HOME SELF-CARE
== END 2017-07-10 11:38 | disposition home or self-care (01) | DRG 287 ==
LOC: EC 17:43 → 6SEL 19:22 → OBSVTOIN 07-08 14:04
PROVIDERS: ADMIT Internal Medicine; ATTEND Internal Medicine
PROC: B2181ZZ Fluoroscopy of Left Internal Mammary Bypass Graft using Low Osmolar Contrast (ICD-10-PCS; 2017-07-08)
PROC: B2111ZZ Fluoroscopy of Multiple Coronary Arteries using Low Osmolar Contrast (ICD-10-PCS; principal; 2017-07-08 08:50)
DX: I25.10 Atherosclerotic heart disease of native coronary artery without angina pectoris (principal); E11.22 Type 2 diabetes mellitus with diabetic chronic kidney disease; E11.51 Type 2 diabetes mellitus with diabetic peripheral angiopathy without gangrene; I13.0 Hypertensive heart and chronic kidney disease with heart failure and stage 1 through stage 4 chronic kidney disease, or unspecified chronic kidney disease; I50.22 Chronic systolic (congestive) heart failure; I25.82 Chronic total occlusion of coronary artery; I08.1 Rheumatic disorders of both mitral and tricuspid valves; J40 Bronchitis, not specified as acute or chronic; K44.9 Diaphragmatic hernia without obstruction or gangrene; E78.5 Hyperlipidemia, unspecified; I25.2 Old myocardial infarction; N18.3 Chronic kidney disease, stage 3 (moderate); Z79.82 Long term (current) use of aspirin; Z79.02 Long term (current) use of antithrombotics/antiplatelets; Z79.4 Long term (current) use of insulin; Z79.899 Other long term (current) drug therapy; Z95.5 Presence of coronary angioplasty implant and graft; Z95.1 Presence of aortocoronary bypass graft; Z95.0 Presence of cardiac pacemaker; Z87.891 Personal history of nicotine dependence; Z96.653 Presence of artificial knee joint, bilateral; Z95.2 Presence of prosthetic heart valve; Z88.0 Allergy status to penicillin; Z85.828 Personal history of other malignant neoplasm of skin; Z95.820 Peripheral vascular angioplasty status with implants and grafts; Z98.42 Cataract extraction status, left eye; Z98.41 Cataract extraction status, right eye; Z82.49 Family history of ischemic heart disease and other diseases of the circulatory system
CPT/HCPCS: 36415; 71046; 71275; 80048; 80053; 80061; 82550; 82553; 83036; 83735; 84484; 85025; 85379; 85610; 85730; 93005; 93306; 93459; 96361; 96374; 99285

== ENCOUNTER 2017-10-12 17:52 | Inpatient (IN) | payer MEDICARE, BC ==
[2017-10-12] MEDS ORDERED: ALBUTEROL NEBULIZED 2.5 MG/3 ML INHALATION STA (18:45)
[2017-10-12] MEDS ORDERED: DEXAMETHASONE SOD PHOSPHATE 10 MG/ML 1 ML VIAL IV STA (18:45)
[2017-10-12] MEDS ORDERED: IPRATROPIUM 0.5 MG/2.5 ML NEBU INHALATION STA (18:45)
--- NOTE | 2017-10-12 18:48 | ED ---
General Adult HPI - General Chief complaint: Shortness of Breath Stated complaint: Difficulty Breathing Time Seen by Provider: 10/12/17 18:03 Source: patient, RN notes reviewed, old records reviewed Mode of arrival: wheelchair Limitations: no limitations - History of Present Illness Initial comments: 77-year-old male history of CAD history of coronary artery bypass, remote history of tobacco use, and COPD presents with 3 days of worsening cough and dyspnea. Patient states that his cough is productive of yellow mucus. He has had subjective fever and chills. Patient also reports intermittent chest pain sometimes with his cough and sometimes in between coughing spells. He has baseline angina, takes nitroglycerin 3-4 times daily and has been doing this throughout the past 3 days as well. No change in his chest pain over the past several days. He is scheduled for heart catheterization later this month. He denies significant chest pain at the time of my evaluation. Denies abdominal pain nausea or vomiting. - Related Data Home Medications Medication Instructions Recorded Confirmed Aspirin 325 mg PO DAILY 06/06/15 07/06/17 Atorvastatin Calcium [Lipitor] 40 mg PO DAILY 06/06/15 07/06/17 Clopidogrel [Plavix] 75 mg PO QAM 06/06/15 07/06/17 Enalapril [Vasotec] 10 mg PO BID 06/06/15 07/06/17 Glimepiride [Amaryl] 1 mg PO BID 06/06/15 07/06/17 amLODIPine [Norvasc] 10 mg PO QAM 06/06/15 07/06/17 Insulin Detemir [Levemir Flextouch] 25 units SQ QAM 02/20/16 07/06/17 Furosemide [Lasix] 40 mg PO BID 03/06/16 07/06/17 Cholecalciferol [Vitamin D3] 2,000 unit PO DAILY 04/13/16 07/06/17 Multivit-Mins/Iron/Folic/Lycop 1 tab PO DAILY 04/13/16 07/06/17 [Centrum Men's Tablet] Nitroglycerin 0.4 mg SL DIRECTED PRN 04/12/17 07/06/17 Metoprolol Tartrate [Lopressor] 25 mg PO BID 07/06/17 07/06/17 metFORMIN HCL [Glucophage] 500 mg PO DAILY 07/06/17 07/06/17 Previous Rx's Medication Instructions Recorded Isosorbide Mononitrate ER [Imdur] 30 mg PO DAILY #30 tab.er.24h 07/10/17 Allergies Allergy/AdvReac Type Severity Reaction Status Date / Time Penicillins Allergy Itching Verified 10/12/17 18:01 Review of Systems ROS Statement: Those systems with pertinent positive or pertinent negative responses have been documented in the HPI. ROS Other: All systems not noted in ROS Statement are negative. Past Medical History Past Medical History: Coronary Artery Disease (CAD), Cancer, Heart Failure, Diabetes Mellitus, Hyperlipidemia, Hypertension, Myocardial Infarction ([place]), Osteoarthritis (OA), Skin Disorder, Vascular Disorder Additional Past Medical History / Comment(s): Heart Murmur, LT Leg EDEMA, PAIN (HX VEIN HARVESTING). 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 Eliud Knee Replacements. EXC Eliud Cataract. DOUBLE CABG. AORTIC HEART VALVE REPLACEMENT, AND PACEMAKER 2016. ABD Aortogram W/ RUNOFF. PTBA ELIUD W/ STENTS X5, skin CA on nose removed Past Anesthesia/Blood Transfusion Reactions: No Reported Reaction Date of Last Stent Placement:: 2015 Type of Cardiac Device: Permanent Pacemaker Device Placement Date:: 2015 Past Psychological History: No Psychological Hx Reported Smoking Status: Former smoker Past Alcohol Use History: Occasional Past Drug Use History: None Reported - Past Family History Mother Family Medical History: Cancer Additional Family Medical History / Comment(s): Mother from colon cancer. Sister(s) Family Medical History: Cancer Additional Family Medical History / Comment(s): Patient has one sister that from cancer but he does not know the type of cancer. Father Family Medical History: CVA/TIA Additional Family Medical History / Comment(s): Father from a cerebral hemorrhage. Daughter(s) Family Medical History: Cancer Additional Family Medical History / Comment(s): Patient has one daughter with cancer but does not know type. Brother(s) Additional Family Medical History / Comment(s): Patient has 1 brother that from a myocardial infarction. A second brother has but he does not know the underlying cause. General Exam Limitations: no limitations General appearance: alert, in no apparent distress Head exam: Present: atraumatic, normocephalic Eye exam: Present: normal appearance, PERRL, EOMI ENT exam: Present: normal exam Neck exam: Present: normal inspection. Absent: tenderness, meningismus Respiratory exam: Present: respiratory distress, wheezes, rhonchi, other ( Bronchospastic cough) Cardiovascular Exam: Present: regular rate, irregular rhythm GI/Abdominal exam: Present: soft. Absent: distended, tenderness, guarding Extremities exam: Present: pedal edema Neurological exam: Present: alert, oriented X3, CN II-XII intact. Absent: motor sensory deficit Psychiatric exam: Present: normal affect, normal mood Skin exam: Present: warm, dry, intact. Absent: cyanosis, diaphoretic Course Vital Signs 10/12/17 10/12/17 10/12/17 17:58 19:05 19:06 Temperature 98.3 F Pulse Rate 89 97 90 Respiratory 18 22 Rate Blood Pressure 157/63 144/63 O2 Sat by Pulse 95 98 Oximetry 10/12/17 10/12/17 19:29 20:19 Temperature Pulse Rate 98 114 H Respiratory 17 Rate Blood Pressure 139/62 O2 Sat by Pulse 97 Oximetry EKG Findings - EKG Comments: EKG Findings:: EKG: Atrial sensed ventricular paced rhythm with PVC rate of 86, UT interval 182, QRS duration 158, QTC 550 Medical Decision Making - Medical Decision Making 77-year-old male presenting with dyspnea, cough, and chest pain. Patient is wheezing throughout with some peripheral edema. He has history of both congestive heart failure and COPD. Exam is consistent with both disease processes. Workup reveals normal white blood cell count, stable hemoglobin, normal electrolytes. There is troponin elevation of 0.122, given the chest pain , patient will be anticoagulated. Although this troponin elevation may be secondary to heart failure his patient is pulmonary edema and an elevated BNP at 3200. Chest x-ray is negative for focal pneumonia. Patient will be continued on both Lasix IV, and treatment of COPD exacerbation. Cardiology will be placed on consult. He will be admitted for further evaluation and treatment. Case discussed with Dr. Lawson who will accept admission. - Lab Data Result diagrams: 10/12/17 18:37 06/09/18 18:37 Lab Results 10/12/17 10/12/17 10/12/17 Range/Units 18:37 18:37 18:37 WBC 8.1 (3.8-10.6) k/uL RBC 3.76 L (4.30-5.90) m/uL Hgb 13.1 (13.0-17.5) gm/dL Hct 37.5 L (39.0-53.0) % MCV 99.6 (80.0-100.0) fL MCH 34.7 (25.0-35.0) pg MCHC 34.8 (31.0-37.0) g/dL RDW 14.2 (11.5-15.5) % Plt Count 158 (150-450) k/uL Neutrophils % 81 % Lymphocytes % 9 % Monocytes % 5 % Eosinophils % 2 % Basophils % 0 % Neutrophils # 6.6 (1.3-7.7) k/uL Lymphocytes # 0.8 L (1.0-4.8) k/uL Monocytes # 0.4 (0-1.0) k/uL Eosinophils # 0.1 (0-0.7) k/uL Basophils # 0.0 (0-0.2) k/uL PT (9.0-12.0) sec INR (<1.2) APTT (22.0-30.0) sec Sodium 138 (137-145) mmol/L Potassium 3.9 (3.5-5.1) mmol/L Chloride 101 (98-107) mmol/L Carbon Dioxide 24 (22-30) mmol/L Anion Gap 13 mmol/L BUN 22 H (9-20) mg/dL Creatinine 1.20 (0.66-1.25) mg/dL Est GFR (CKD-EPI)AfAm 66 (>60 ml/min/1.73 sqM) Est GFR (CKD-EPI)NonAf 57 (>60 ml/min/1.73 sqM) Glucose 118 H (74-99) mg/dL Plasma Lactic Acid Winston (0.7-2.0) mmol/L Calcium 9.0 (8.4-10.2) mg/dL Magnesium 2.0 (1.6-2.3) mg/dL Total Bilirubin 2.1 H (0.2-1.3) mg/dL AST 42 (17-59) U/L ALT 32 (21-72) U/L Alkaline Phosphatase 84 (38-126) U/L Total Creatine Kinase 309 H (55-170) U/L CK-MB (CK-2) 2.6 H* (0.0-2.4) ng/mL CK-MB (CK-2) Rel Index 0.8 Troponin I 0.122 H* (0.000-0.034) ng/mL NT-Pro-B Natriuret Pep pg/mL Total Protein 6.3 (6.3-8.2) g/dL Albumin 3.7 (3.5-5.0) g/dL 10/12/17 10/12/17 10/12/17 Range/Units 18:37 18:37 18:37 WBC (3.8-10.6) k/uL RBC (4.30-5.90) m/uL Hgb (13.0-17.5) gm/dL Hct (39.0-53.0) % MCV (80.0-100.0) fL MCH (25.0-35.0) pg MCHC (31.0-37.0) g/dL RDW (11.5-15.5) % Plt Count (150-450) k/uL Neutrophils % % Lymphocytes % % Monocytes % % Eosinophils % % Basophils % % Neutrophils # (1.3-7.7) k/uL Lymphocytes # (1.0-4.8) k/uL Monocytes # (0-1.0) k/uL Eosinophils # (0-0.7) k/uL Basophils # (0-0.2) k/uL PT 10.1 (9.0-12.0) sec INR 1.0 (<1.2) APTT 24.0 (22.0-30.0) sec Sodium (137-145) mmol/L Potassium (3.5-5.1) mmol/L Chloride (98-107) mmol/L Carbon Dioxide (22-30) mmol/L Anion Gap mmol/L BUN (9-20) mg/dL Creatinine (0.66-1.25) mg/dL Est GFR (CKD-EPI)AfAm (>60 ml/min/1.73 sqM) Est GFR (CKD-EPI)NonAf (>60 ml/min/1.73 sqM) Glucose (74-99) mg/dL Plasma Lactic Acid Winston 1.2 (0.7-2.0) mmol/L Calcium (8.4-10.2) mg/dL Magnesium (1.6-2.3) mg/dL Total Bilirubin (0.2-1.3) mg/dL AST (17-59) U/L ALT (21-72) U/L Alkaline Phosphatase (38-126) U/L Total Creatine Kinase (55-170) U/L CK-MB (CK-2) (0.0-2.4) ng/mL CK-MB (CK-2) Rel Index Troponin I (0.000-0.034) ng/mL NT-Pro-B Natriuret Pep 3280 pg/mL Total Protein (6.3-8.2) g/dL Albumin (3.5-5.0) g/dL Disposition Clinical Impression: Acute exacerbation of chronic obstructive airways disease, Congestive heart failure, Chest pain Disposition: ADMITTED IP TO THIS [facility] Condition: Stable Is patient prescribed a controlled substance at d/c from ED?: No Referrals: Aristeo Garrett MD [Primary Care Provider] - 1-2 days Decision to Admit Reason: Admit from EC Decision Date: 10/12/17 Decision Time: 20:54
[2017-10-12 18:51] LABS: Basophils % (A) 0 %; Eosinophils # (A) 0.1 k/uL (0-0.7); Eosinophils % (A) 2 %; HCT 37.5 % (39.0-53.0); HGB 13.1 gm/dL (13.0-17.5); Lymphocytes # (A) 0.8 k/uL (1.0-4.8); Lymphocytes % (A) 9 %; MCH 34.7 pg (25.0-35.0); MCHC 34.8 g/dL (31.0-37.0); MCV 99.6 fL (80.0-100.0); Mean Platelet Volume 7.6; Monocytes # (A) 0.4 k/uL (0-1.0); Monocytes % (A) 5 %; Neutrophils # (A) 6.6 k/uL (1.3-7.7); Neutrophils % (A) 81 %; Platelet Count 158 k/uL (150-450); RBC 3.76 m/uL (4.30-5.90); RDW 14.2 % (11.5-15.5); WBC 8.1 k/uL (3.8-10.6)
[2017-10-12 19:01] LABS: Albumin 3.7 g/dL (3.5-5.0); Potassium 3.9 mmol/L (3.5-5.1); Total Bilirubin 2.1 mg/dL (0.2-1.3); Total Protein 6.3 g/dL (6.3-8.2)
[2017-10-12 19:17] LABS: Prothrombin Time 10.1 sec (9.0-12.0)
[2017-10-12 19:33] LABS: Creatine Kinase MB 2.6 ng/mL (0.0-2.4); Troponin I 0.122 ng/mL (0.000-0.034)
[2017-10-12] MEDS ORDERED: FUROSEMIDE 10 MG/ML 4 ML VIAL IV STA (19:47)
[2017-10-12] MEDS ORDERED: ASPIRIN 325 MG TAB PO STA (19:47)
--- NOTE | 2017-10-12 20:28 | XR ---
EXAMINATION TYPE: XR chest 2V DATE OF EXAM: 10/12/2017 COMPARISON: 07/06/2017 TECHNIQUE: PA and lateral views submitted. HISTORY: Shortness of breath FINDINGS: The heart size is normal. Subsegmental basilar findings on the left. Aortic stent is evident. Sterno yadi wires are present. Pacemaker wires are present. Interstitium is increased. Hypertrophic and degenerative change of the spine. IMPRESSION: 1. Increased interstitium can be seen with chronic interstitial lung disease or mild central venous c ongestion. Correlate clinically. 2. Subsegmental changes at the left lung base correlate for atelectasis or infiltrate..
[2017-10-12] MEDS ORDERED: NALOXONE 0.4 MG/ML 1 ML VIAL IV PRN (20:48)
[2017-10-12] MEDS ORDERED: HEPARIN SODIUM,PORCINE 5,000 UNIT/ML 1 ML VIAL IV ONE (20:48)
[2017-10-12] MEDS ORDERED: ALBUTEROL NEBULIZED 2.5 MG/3 ML INHALATION PRN (20:51)
[2017-10-12] MEDS: HEPARIN SODIUM,PORCINE/D5W PMX 25,000 UNIT in DEXTROSE/WATER 1 500ML.BAG IV SCH (21:02)
[2017-10-12] MEDS: FUROSEMIDE 10 MG/ML 4 ML VIAL IV SCH (21:05)
[2017-10-12] MEDS: METOPROLOL TARTRATE 25 MG TAB PO SCH (23:37)
[2017-10-12] MEDS: LISINOPRIL 10 MG TAB PO SCH (23:37)
[2017-10-12 23:44] LABS: Glucose,Whole Blood 212 mg/dL (75-99)
[2017-10-13 01:41] LABS: Creatine Kinase MB 2.1 ng/mL (0.0-2.4)
[2017-10-13 01:45] LABS: Troponin I 0.094 ng/mL (0.000-0.034)
[2017-10-13 03:41] LABS: Basophils % (A) 0 %; Eosinophils % (A) 0 %; HCT 38.3 % (39.0-53.0); Lymphocytes # (A) 0.4 k/uL (1.0-4.8); Lymphocytes % (A) 6 %; MCH 34.2 pg (25.0-35.0); MCV 100.7 fL (80.0-100.0); Macrocytosis Slight; Mean Platelet Volume 7.6; Monocytes # (A) 0.2 k/uL (0-1.0); Monocytes % (A) 2 %; Neutrophils # (A) 5.7 k/uL (1.3-7.7); Neutrophils % (A) 91 %; Platelet Count 147 k/uL (150-450); RDW 13.3 % (11.5-15.5); WBC 6.2 k/uL (3.8-10.6)
[2017-10-13 03:51] LABS: Albumin 3.9 g/dL (3.5-5.0); Calcium 8.8 mg/dL (8.4-10.2); Potassium 4.4 mmol/L (3.5-5.1); Total Bilirubin 1.8 mg/dL (0.2-1.3); Total Protein 6.3 g/dL (6.3-8.2)
[2017-10-13] MEDS: HEPARIN SODIUM,PORCINE 5,000 UNIT/ML 1 ML VIAL IV PRN ×2 (05:09→12:40)
[2017-10-13 06:44] LABS: Glucose,Whole Blood 262 mg/dL (75-99)
[2017-10-13] MEDS: INSULIN ASPART 100 UNIT/ML 1 ML 10 ML VIAL SQ SCH ×4 (07:10→23:20)
[2017-10-13 07:17] LABS: Creatine Kinase MB 2.2 ng/mL (0.0-2.4)
[2017-10-13] MEDS: CLOPIDOGREL 75 MG TAB PO SCH (07:48)
[2017-10-13] MEDS: LISINOPRIL 10 MG TAB PO SCH ×2 (07:48→20:11)
[2017-10-13] MEDS: METOPROLOL TARTRATE 25 MG TAB PO SCH ×2 (07:48→20:10)
[2017-10-13] MEDS: ASPIRIN 325 MG TAB PO SCH (07:48)
[2017-10-13] MEDS: ATORVASTATIN 40 MG TAB PO SCH (07:48)
[2017-10-13] MEDS: amLODIPine 10 MG TAB PO SCH (07:48)
[2017-10-13] MEDS: ISOSORBIDE MONONITRATE ER 30 MG TAB.ER.24H PO SCH (07:48)
[2017-10-13 08:53] LABS: Troponin I 0.07 ng/mL (0.000-0.034)
[2017-10-13] MEDS ORDERED: predniSONE 50 MG TAB PO SCH (09:00)
[2017-10-13] MEDS: INSULIN DETEMIR 100 UNIT/ML 10 ML VIAL SQ SCH (10:07)
[2017-10-13] MEDS: FUROSEMIDE 10 MG/ML 4 ML VIAL IV SCH ×2 (10:07→21:43)
[2017-10-13] MEDS ORDERED: ALPRAZolam 0.5 MG TAB PO PRN (11:20)
[2017-10-13] MEDS ORDERED: SODIUM CHLORIDE 0.9% 1,000 ML in EMPTY BAG 1 BAG IV ONE (11:20)
[2017-10-13] MEDS ORDERED: ALPRAZolam 0.25 MG TAB PO PRN (11:20)
[2017-10-13 11:39] LABS: Glucose,Whole Blood 242 mg/dL (75-99)
--- NOTE | 2017-10-13 12:05 | CONS ---
CONSULTATION Viraj Verdin is a 77-year-old gentleman with history of coronary artery disease, status post CABG, hypertension, dyslipidemia, [id number] diabetes, who presented to the hospital complaining of cough and intermittent episodes of chest tightness. The patient has been having exertional chest pain for the last several weeks, was evaluated by Dr. Ford and advised him to undergo cardiac catheterization. He has had similar symptoms since this cough had started. It is mild to moderate intensity, precordial and radiates to his back. Describes it as a pressure. Since being admitted, he is comfortable at rest and is free of symptoms and is currently on IV heparin. MEDICATIONS: Include aspirin, Lipitor, Plavix, Vasotec, Amaryl, Norvasc, insulin, Lasix and Glucophage. ALLERGIES: ALLERGIC TO PENICILLIN. FAMILY HISTORY: Negative for premature coronary artery disease. SOCIAL HISTORY: Negative for current smoking, EtOH abuse, or drug abuse. REVIEW OF SYSTEMS: HEENT is unremarkable. Cardiac as described above. Respiratory as described above. GI negative. Genitourinary: Negative. Allergy/Immunology: Negative. Skin negative. Musculoskeletal: Significant for arthritis. Psychosocial negative. Endocrine: Negative. Hematological negative. Derm negative. Constitutional negative. Oncological negative. Rest of the system review is not relevant. PAST SURGICAL HISTORY: Is significant for bypass surgery, aortic valve replacement and pacemaker. PHYSICAL EXAM: On exam, comfortable at rest. Vital signs are stable. Chest exam reveals good air entry bilaterally. Heart exam reveals first and second heart sounds and ejection systolic murmur in the aortic area. Abdomen is soft. Exam of extremities reveals trace edema. Peripheral pulses are felt. LAB: Show that the hemoglobin is 13, creatinine is 1.4. Potassium is 4.4. Troponins are elevated at 0.1, 0.09 and 0.07. EKG shows paced rhythm. ASSESSMENT: 1. Acute non ST-segment elevation myocardial infarction. 2. Hypertension. 3. Coronary artery disease, status post coronary artery bypass grafting. 4. Dyslipidemia. 5. Hid-jjntohp-wzdpfwyxw diabetes. PLAN: The patient is on optimal medical therapy with aspirin, heparin, statin, Plavix, nitrates and beta blockers. I advised the patient to undergo cardiac catheterization. This will be done tomorrow hopefully by Dr. Ford. MMODL / PRABHJOTN: [id number] /
[2017-10-13] MEDS ORDERED: CALCIUM CARBONATE 500 MG CHEWABLE PO PRN (14:10)
[2017-10-13] MEDS ORDERED: IPRATROPIUM-ALBUTEROL 3 ML NEB INHALATION PRN (14:32)
[2017-10-13] MEDS ORDERED: AZITHROMYCIN 500 MG in SODIUM CHLORIDE 0.9% 250 ML IVPB SCH (15:00)
[2017-10-13] MEDS: HEPARIN SODIUM,PORCINE/D5W PMX 25,000 UNIT in DEXTROSE/WATER 1 500ML.BAG IV SCH (15:23)
[2017-10-13] MEDS: IPRATROPIUM-ALBUTEROL 3 ML NEB INHALATION SCH ×2 (15:46→19:03)
--- NOTE | 2017-10-13 15:46 | P.HPIM ---
History of Present Illness H&P Date: 10/13/17 Chief Complaint: Shortness of breath and cough This is 77 years old male with past medical history significant for coronary artery disease presents to the emergency department with worsening shortness of breath and productive cough. Patient stated that 4 days ago he started having nonproductive cough which turned to be 2 yellow later to green productive cough with congestion to the chest agents A during dose 4 days he believes that he gained most more fluid especially in the lower extremity and on his lungs that prevented him from sleeping during the nighttime with difficulty in breathing patient was using more pillows and eventually had to sleep in sitting position due to worsening shortness breath. Patient also reported wheezing and reports pain bilaterally when coughing. Patient denied any fever, chills, nausea, vomiting, abdominal pain, dizziness or lightheadedness. Patient stated that he's compliment with her medication and takes his Lasix everyday check on his weight on daily basis and believes that he gained at least 15 pounds in the last 1 week despite using the appropriate regimen. Patient quit smoking long time ago denied being diagnosed with asthma or COPD and said that he has never used inhalers in the past. Patient reported occasional chest pain that been happening for a long time located to the left chest and radiating to the mediastinum and right chest and was scheduled to have cardiac catheterization on outpatient basis with his primary carboy filler Review of Systems All 14 systems reviewed and negative except as above Past Medical History Past Medical History: Coronary Artery Disease (CAD), Cancer, Heart Failure, Diabetes Mellitus, Hyperlipidemia, Hypertension, Myocardial Infarction ([place]), Osteoarthritis (OA), Skin Disorder, Vascular Disorder Additional Past Medical History / Comment(s): Heart Murmur, LT Leg EDEMA, PAIN (HX VEIN HARVESTING). 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 Eliud Knee Replacements. EXC Eliud Cataract. DOUBLE CABG. AORTIC HEART VALVE REPLACEMENT, AND PACEMAKER 2016. ABD Aortogram W/ RUNOFF. PTBA ELIUD W/ STENTS X5, skin CA on nose removed Past Anesthesia/Blood Transfusion Reactions: No Reported Reaction Date of Last Stent Placement:: 2016 Type of Cardiac Device: Permanent Pacemaker Device Placement Date:: 2015 Past Psychological History: No Psychological Hx Reported Smoking Status: Former smoker Past Alcohol Use History: Occasional Additional Past Alcohol Use History / Comment(s): Started smoking age 8, quit smoking 1997, SMOKED 2 PPD. Patient has 1 alcoholic drink (6 shots) per night before bed. Past Drug Use History: None Reported - Past Family History Mother Family Medical History: Cancer Additional Family Medical History / Comment(s): Mother from colon cancer. Sister(s) Family Medical History: Cancer Additional Family Medical History / Comment(s): Patient has one sister that from cancer but he does not know the type of cancer. Father Family Medical History: CVA/TIA Additional Family Medical History / Comment(s): Father from a cerebral hemorrhage. Daughter(s) Family Medical History: Cancer Additional Family Medical History / Comment(s): Patient has one daughter with cancer but does not know type. Brother(s) Additional Family Medical History / Comment(s): Patient has 1 brother that from a myocardial infarction. A second brother has but he does not know the underlying cause. Medications and Allergies Home Medications Medication Instructions Recorded Confirmed Type Aspirin 325 mg PO DAILY 06/06/15 10/12/17 History Atorvastatin Calcium [Lipitor] 40 mg PO DAILY 06/06/15 10/12/17 History Clopidogrel [Plavix] 75 mg PO QAM 06/06/15 10/12/17 History Enalapril [Vasotec] 10 mg PO BID 06/06/15 10/12/17 History Glimepiride [Amaryl] 1 mg PO BID 06/06/15 10/12/17 History amLODIPine [Norvasc] 10 mg PO QAM 06/06/15 10/12/17 History Insulin Detemir [Levemir Flextouch] 25 units SQ QAM 02/20/16 10/12/17 History Furosemide [Lasix] 40 mg PO BID 03/06/16 10/12/17 History Cholecalciferol [Vitamin D3] 2,000 unit PO DAILY 04/13/16 10/12/17 History Multivit-Mins/Iron/Folic/Lycop 1 tab PO DAILY 04/13/16 10/12/17 History [Centrum Men's Tablet] Nitroglycerin 0.4 mg SL DIRECTED PRN 04/12/17 10/13/17 History Metoprolol Tartrate [Lopressor] 25 mg PO BID 07/06/17 10/12/17 History metFORMIN HCL [Glucophage] 500 mg PO DAILY 07/06/17 10/12/17 History Isosorbide Mononitrate ER [Imdur] 30 mg PO DAILY #30 tab.er.24h 07/10/17 Rx Allergies Allergy/AdvReac Type Severity Reaction Status Date / Time Penicillins Allergy Itching Verified 10/12/17 18:01 Physical Exam Vitals: Vital Signs Temp Pulse Pulse Resp BP BP Pulse Ox 10/13/17 11:30 96.2 F L 81 18 118/56 95 10/13/17 07:48 96.5 F L 67 18 127/59 94 L 10/13/17 04:00 96.8 F L 74 16 143/65 95 10/13/17 00:00 97 F L 85 16 148/66 10/12/17 22:04 96.7 F L 99 18 143/105 95 10/12/17 20:19 114 H 17 139/62 97 10/12/17 19:29 98 10/12/17 19:06 90 10/12/17 19:05 97 22 144/63 98 10/12/17 17:58 98.3 F 89 18 157/63 95 Intake and Output 10/13/17 10/13/17 10/13/17 06:59 14:59 22:59 Intake Total 160 328.313 89.18 Output Total 300 Balance -140 328.313 89.18 Intake: Intake, IV Titration 160 328.313 89.18 Amount Heparin Sodium,Porcine/ 160 207.313 89.18 D5w Pmx 25,000 unit In Dextrose/Water 1 500ml. bag @ 8.89 UNITS/KG/HR 20 mls/hr IV .Q24H [facility] Rx#: [id number] Sodium Chloride 0.9% 1, 121 000 ml In Empty Bag 1 bag @ 1 ML/KG/HR 121.4 mls/ hr IV .Q8H15M [facility] Rx#: [id number] Output: Urine 300 Other: Voiding Method Urinal Urinal # Voids 1 Weight 121.4 kg Gen.: in stated age, no acute distress Heart: Normal S1-S2 Lungs: Bilateral lower aces crackles with scattered rhonchi and end expiratory wheezing Abdomen: Soft, no tenderness, positive bowel sounds in all 4 quadrant no guarding or rebound, positive for distention Skin: No new rash Psych: Alert and oriented 3 Neuro: No focal deficit Bilateral lower extremity 3+ edema Results CBC & Chem 7: 10/13/17 03:17 10/13/17 03:17 Labs: Abnormal Lab Results - Last 24 Hours (Table) 10/12/17 10/12/17 10/12/17 Range/Units 18:37 18:37 18:37 RBC 3.76 L (4.30-5.90) m/uL Hct 37.5 L (39.0-53.0) % MCV (80.0-100.0) fL Plt Count (150-450) k/uL Lymphocytes # 0.8 L (1.0-4.8) k/uL APTT (22.0-30.0) sec BUN 22 H (9-20) mg/dL Creatinine (0.66-1.25) mg/dL Glucose 118 H (74-99) mg/dL POC Glucose (mg/dL) (75-99) mg/dL Total Bilirubin 2.1 H (0.2-1.3) mg/dL Total Creatine Kinase 309 H (55-170) U/L CK-MB (CK-2) 2.6 H* (0.0-2.4) ng/mL Troponin I 0.122 H* (0.000-0.034) ng/mL 10/12/17 10/13/17 10/13/17 Range/Units 23:39 00:39 03:17 RBC 3.80 L (4.30-5.90) m/uL Hct 38.3 L (39.0-53.0) % MCV 100.7 H (80.0-100.0) fL Plt Count 147 L (150-450) k/uL Lymphocytes # 0.4 L (1.0-4.8) k/uL APTT (22.0-30.0) sec BUN (9-20) mg/dL Creatinine (0.66-1.25) mg/dL Glucose (74-99) mg/dL POC Glucose (mg/dL) 212 H (75-99) mg/dL Total Bilirubin (0.2-1.3) mg/dL Total Creatine Kinase 212 H (55-170) U/L CK-MB (CK-2) (0.0-2.4) ng/mL Troponin I 0.094 H* (0.000-0.034) ng/mL 10/13/17 10/13/17 10/13/17 Range/Units 03:17 06:29 06:42 RBC (4.30-5.90) m/uL Hct (39.0-53.0) % MCV (80.0-100.0) fL Plt Count (150-450) k/uL Lymphocytes # (1.0-4.8) k/uL APTT (22.0-30.0) sec BUN 27 H (9-20) mg/dL Creatinine 1.40 H (0.66-1.25) mg/dL Glucose 310 H (74-99) mg/dL POC Glucose (mg/dL) 262 H (75-99) mg/dL Total Bilirubin 1.8 H (0.2-1.3) mg/dL Total Creatine Kinase 191 H (55-170) U/L CK-MB (CK-2) (0.0-2.4) ng/mL Troponin I 0.070 H* (0.000-0.034) ng/mL 10/13/17 10/13/17 Range/Units 11:28 11:29 RBC (4.30-5.90) m/uL Hct (39.0-53.0) % MCV (80.0-100.0) fL Plt Count (150-450) k/uL Lymphocytes # (1.0-4.8) k/uL APTT 35.4 H (22.0-30.0) sec BUN (9-20) mg/dL Creatinine (0.66-1.25) mg/dL Glucose (74-99) mg/dL POC Glucose (mg/dL) 242 H (75-99) mg/dL Total Bilirubin (0.2-1.3) mg/dL Total Creatine Kinase (55-170) U/L CK-MB (CK-2) (0.0-2.4) ng/mL Troponin I (0.000-0.034) ng/mL Thrombosis Risk Factor Assmnt - Choose All That Apply Each Factor Represents 1 point: Obesity (BMI >25) Each Risk Factor Represents 3 Points: Age 75 years or older Thrombosis Risk Factor Assessment Total Risk Factor Score: 4 Thrombosis Risk Factor Assessment Level: Moderate Risk Assessment and Plan Assessment: 1. Acute respiratory failure. 2. Chest pain with possible unstable angina. 3. Elevated troponin. 4. Coronary artery disease status post bypass surgery. 5. Acute bronchitis, rule out early pneumonia. 6. Acute congestive heart failure exacerbation. 7. Hypertension. 8. Hyperlipidemia. 9. Diabetes mellitus type 2. 10. Morbid obesity. 11. Chronic kidney disease. 12. Slight elevation in bilirubin Plan discussed with the patient at the bedside in the presence of the nursing staff when I would like to continue with heparin drip continue cardioprotective medication keep patient's nothing by mouth after midnight for cardiac catheterization in the morning based on cardiology discussion with the patient. Patient will require more aggressive diuresis to optimize his fluid balance specially with the recent 15 pounds weight gain and I would like to continue monitoring his I's and O's, check on daily weight and counseled patient regarding medication adherence and diet adherence as well. Patient will be started on Zithromax 500 IV push daily during this hospital stay, steroid-based inhaler, DuoNeb scheduled and as needed and continue with supplemental oxygen to keep his oxygenation above 88% as patient might have underlying COPD given his remote history of smoking. Prognosis remained guarded
[2017-10-13 16:28] LABS: Glucose,Whole Blood 215 mg/dL (75-99)
[2017-10-13] MEDS: BUDESONIDE 0.5 MG/2 ML NEBU INHALATION SCH (19:03)
[2017-10-13] MEDS: NITROGLYCERIN SL TABS 0.4 MG TAB SUBLINGUAL PRN ×3 (19:42→19:52)
[2017-10-13] MEDS ORDERED: NITROGLYCERIN-D5W PMX 50 MG in DEXTROSE/WATER 1 250ML.BAG IV SCH (20:00)
[2017-10-13 20:52] LABS: Glucose,Whole Blood 284 mg/dL (75-99)
[2017-10-13] MEDS ORDERED: NITROGLYCERIN D5W PMX IV ONE ×2 (22:00)
[2017-10-13] MEDS ORDERED: FLUID CONTINUATION IV ONE ×2 (22:00)
[2017-10-13] MEDS ORDERED: MIDAZOLAM 2 MG/2 ML VIAL ONE (22:05)
[2017-10-13] MEDS ORDERED: MIDAZOLAM 2 MG/2 ML VIAL IV ONE (22:15)
[2017-10-13] MEDS ORDERED: METOPROLOL TARTRATE 5 MG/5 ML VIAL IVP ONE ×2 (22:20→22:26)
[2017-10-13] MEDS ORDERED: LIDOCAINE 2% INJ 20 MG/ML SQ ONE (22:20)
[2017-10-13] MEDS ORDERED: IV FLUID CONTINUATION 500 ML IV ONE (22:21)
[2017-10-13] MEDS ORDERED: NITROGLYCERIN 1000MCG/10ML SYRINGE INTRACORON ONE (22:44)
[2017-10-13] MEDS ORDERED: IOPAMIDOL-370 125ML BTL INJ ONE (22:45)
[2017-10-13] MEDS ORDERED: METOPROLOL TARTRATE 25 MG TAB PO SCH (23:11)
[2017-10-13] MEDS ORDERED: RX INFO: IV CONTRAST WAS GIVEN 1 EACH MISC MISCELLANE PRN (23:11)
[2017-10-13] MEDS ORDERED: IOPAMIDOL-370 100ML BTL INJ ONE (23:11)
[2017-10-13] MEDS ORDERED: SODIUM CHLORIDE 0.9% 1,000 ML IV SCH (23:15)
[2017-10-14] MEDS: AZITHROMYCIN 500 MG in SODIUM CHLORIDE 0.9% 250 ML IVPB SCH ×2 (00:04→08:15)
--- NOTE | 2017-10-14 05:23 | CC ---
CARDIAC CATHETERIZATION REPORT DATE OF SERVICE: 10/13/2017 PERFORMING PHYSICIAN: Sergei Holt MD, mailing manager. PROCEDURE PERFORMED: 1. Selective right and left coronary angiogram. 2. Left internal mammary artery angiogram. INDICATION: This is a pleasant 77-year-old gentleman who sees Dr. Ford in the office as an outpatient with a known history of coronary artery disease and prior coronary artery revascularization in the term of coronary artery bypass grafting as well as stenting with the last heart catheterization was performed in July of 2017 revealing mild to moderate disease involving the right coronary artery, severe distal left main coronary artery disease, with patent TELLO to LAD, as well as occluded stents in the first obtuse marginal branch of the left circumflex. At that point, the patient was treated medically. He presented to the hospital complaining of chest discomfort and he was ruled in for acute [id number] myocardial infarction. He was seen and evaluated by Dr. Haque, who recommended proceeding with a heart catheterization tomorrow with Dr. Ford. The patient started experiencing chest discomfort later this afternoon and I started the patient on IV nitrate at rate of 5, then it was increased to 15. In spite of that, he continues to have chest discomfort. He did develop multiple episodes of cardiac arrhythmia in the term of PVCs. COMPLICATION: None. LEVEL OF SEDATION: Moderate with sedation length of 47 minutes. PROCEDURE DESCRIPTION: After obtaining an informed consent, the patient was brought to cardiac label fuser tender. The right common femoral artery was cannulated using micropuncture technique, the micropuncture wire passed easily then I placed a 6-Syriac sheath in the right common femoral artery. After that, I did do selective right and left coronary angiogram using JR4 and JL4 catheters. Left internal mammary artery angiogram was performed using the JR4 catheter. The procedure was completed without any complication. SELECTIVE CORONARY ANGIOGRAM: 1. The RCA is a large caliber vessel and it is a dominant vessel. The RCA has mild to moderate diffuse disease. No high-grade stenosis was identified. The RCA also is calcified. Distally bifurcates into PDA and PLV branches. Both have mild diffuse disease only. 2. The left main is a large left main with diffuse disease up to about 70% to 80% in the distal portion just before it bifurcates into left circumflex and left anterior descending artery. 3. The left circumflex is a moderate caliber vessel. The ostial left circumflex is involved in the plaque from the distal left main. The plaque in the left circumflex in the ostial portion appeared to be in the range of 60%. The proximal circ has another tubular lesion, appeared to be in the range of 60% as well. The left circumflex in the mid and distal portion appeared to be also diffuse disease in the [id number]-gn-wdfgybhi range. The left circumflex gives rise into the first OM branch, which is stented and occluded. The second obtuse marginal branch is a small to medium caliber vessel, which appears to be angiographically normal. 4. The LAD: The ostial LAD also appeared to be involved in the plaque from the distal left main. The ostial LAD plaque appeared to be in the range of 20% to 30%. The proximal LAD appeared to have mild to moderate diffuse disease. The LAD then is 100% occluded by the bifurcation of second diagonal branches. The second diagonal branch itself is a medium caliber vessel with mild disease in the midportion. The first diagonal branch is a small caliber vessel as well with mild disease only. CORONARY BYPASS ANGIOGRAM: The TELLO to LAD is patent. The LAD distal to the TELLO anastomosis appeared to have mild disease only. CONCLUSION: 1. Calcified right and left coronary systems. 2. Severe distal left main disease. 3. Intermediate to severe disease involving the ostial and proximal left circumflex. 4. Occluded left anterior descending artery in the midportion. The left anterior descending artery is protected by a TELLO which is patent and functioning normally. POSTPROCEDURE MANAGEMENT: The finding to me seems to be unchanged compared to prior heart catheterization in July of 2017. If any, the distal left main disease appeared to be slightly worse. I would consider maximize medical treatment at this point of time. If the patient continues to have chest discomfort, he might benefit from stenting of the distal left main to the left circumflex. The stent has to be across the LAD. Having said that, that might jeopardize the 2 diagonal branch comes from the LAD. MMODL / IJN: [id number] /
[2017-10-14 06:05] LABS: Glucose,Whole Blood 148 mg/dL (75-99)
[2017-10-14] MEDS: INSULIN ASPART 100 UNIT/ML 1 ML 10 ML VIAL SQ SCH ×4 (06:23→21:03)
[2017-10-14 06:40] LABS: Basophils % (A) 0 %; Eosinophils % (A) 0 %; HCT 39.6 % (39.0-53.0); HGB 13.4 gm/dL (13.0-17.5); Lymphocytes # (A) 0.6 k/uL (1.0-4.8); Lymphocytes % (A) 5 %; MCHC 33.8 g/dL (31.0-37.0); MCV 100.5 fL (80.0-100.0); Macrocytosis Slight; Mean Platelet Volume 7.9; Monocytes # (A) 0.5 k/uL (0-1.0); Monocytes % (A) 4 %; Neutrophils # (A) 10.5 k/uL (1.3-7.7); Neutrophils % (A) 89 %; Platelet Count 173 k/uL (150-450); RBC 3.94 m/uL (4.30-5.90); RDW 13.8 % (11.5-15.5); WBC 11.8 k/uL (3.8-10.6)
[2017-10-14 06:54] LABS: Albumin 3.8 g/dL (3.5-5.0); Potassium 3.9 mmol/L (3.5-5.1); Total Bilirubin 1.3 mg/dL (0.2-1.3); Total Protein 6.3 g/dL (6.3-8.2)
[2017-10-14] MEDS: IPRATROPIUM-ALBUTEROL 3 ML NEB INHALATION SCH ×4 (07:00→19:12)
[2017-10-14] MEDS: BUDESONIDE 0.5 MG/2 ML NEBU INHALATION SCH ×2 (07:00→19:12)
[2017-10-14] MEDS: FUROSEMIDE 10 MG/ML 4 ML VIAL IV SCH ×2 (08:01→20:58)
[2017-10-14] MEDS: INSULIN DETEMIR 100 UNIT/ML 10 ML VIAL SQ SCH (08:02)
[2017-10-14] MEDS: ISOSORBIDE MONONITRATE ER 30 MG TAB.ER.24H PO SCH (08:02)
[2017-10-14] MEDS: CLOPIDOGREL 75 MG TAB PO SCH (08:02)
[2017-10-14] MEDS: METOPROLOL TARTRATE 50 MG TAB PO SCH ×2 (08:02→20:58)
[2017-10-14] MEDS: ATORVASTATIN 40 MG TAB PO SCH (08:02)
[2017-10-14] MEDS: LISINOPRIL 10 MG TAB PO SCH ×2 (08:02→20:58)
[2017-10-14] MEDS: ASPIRIN 325 MG TAB PO SCH (08:02)
[2017-10-14] MEDS: amLODIPine 10 MG TAB PO SCH (08:02)
--- NOTE | 2017-10-14 10:10 | P.PN ---
Subjective Progress Note Date: 10/14/17 This is 77 years old male with past medical history significant for coronary artery disease presents to the emergency department with worsening shortness of breath and productive cough. Patient stated that 4 days ago he started having nonproductive cough which turned to be 2 yellow later to green productive cough with congestion to the chest agents A during dose 4 days he believes that he gained most more fluid especially in the lower extremity and on his lungs that prevented him from sleeping during the nighttime with difficulty in breathing patient was using more pillows and eventually had to sleep in sitting position due to worsening shortness breath. Patient also reported wheezing and reports pain bilaterally when coughing. Patient denied any fever, chills, nausea, vomiting, abdominal pain, dizziness or lightheadedness. Patient stated that he's compliment with her medication and takes his Lasix everyday check on his weight on daily basis and believes that he gained at least 15 pounds in the last 1 week despite using the appropriate regimen. Patient quit smoking long time ago denied being diagnosed with asthma or COPD and said that he has never used inhalers in the past. Patient reported occasional chest pain that been happening for a long time located to the left chest and radiating to the mediastinum and right chest and was scheduled to have cardiac catheterization on outpatient basis with his primary director of loss prevention 10/14: Per patient's nurse, patient developed chest pain 10 out of 10 last night with a wide complex tachycardia and ST elevation. [place]. Patient states that he had an updraft treatment and shortly after that he was breathing hard and developed chest pain. He was concerned that it was related to the updraft Patient underwent heart catheterization yesterday with Dr. Holt the found calcified right and left coronary systems. Severe distal left main disease. Intermediate to severe disease involving the ostial and proximal left circumflex. Occluded left anterior descending artery in the midportion. The left anterior descending artery is protected by TELLO which is patent and functioning. Findings were unchanged compared to heart cath done in July 2017. The distal left main disease May appeared to be slightly worse. Consider maximizing medical treatment at this point. If the patient continues to have chest discomfort, he may benefit from stenting of the distal left main to the left circumflex. The son has to be across the LAD and this might jeopardize the 2 diagonal branch that comes from the LAD. Patient has been hemodynamically stable. Pulse ox is 94% on 4 L. White count is 11.8, BUN 33 and creatinine 1.2. Blood glucose running between 148 and 284. AST is 75. ProBNP was 3360. Patient continues to have a productive cough and sputum culture is in progress. He states his breathing is better today. Anticipate discharge home tomorrow Objective - Vital Signs Vital signs: Vital Signs Temp 97.3 F L 10/14/17 08:00 Pulse 78 10/14/17 08:00 Resp 20 10/14/17 08:00 BP 127/69 10/14/17 08:00 Pulse Ox 94 L 10/14/17 08:00 Intake & Output 10/13/17 10/14/17 10/14/17 18:59 06:59 18:59 Intake Total 879.493 176.000 Output Total 1550 Balance 879.493 -1374.000 Weight 135 kg Intake: IV 158 Intake, IV Titration 417.493 18.000 Amount Heparin Sodium,Porcine/ 296.493 D5w Pmx 25,000 unit In Dextrose/Water 1 500ml. bag @ 8.89 UNITS/KG/HR 20 mls/hr IV .Q24H [facility] Rx#: [id number] Nitroglycerin-D5w Pmx 50 18.000 mg In Dextrose/Water 1 250ml.bag @ 5 MCG/MIN 1.5 mls/hr IV .Q24H [facility] Rx#: [id number] Sodium Chloride 0.9% 1, 121 000 ml In Empty Bag 1 bag @ 1 ML/KG/HR 121.4 mls/ hr IV .Q8H15M [facility] Rx#: [id number] Oral 462 Output: Urine 1550 Other: Voiding Method Urinal Urinal Urinal # Voids 3 - Exam Gen.: in stated age, no acute distress Heart: Normal S1-S2 Lungs: Bilateral lower aces crackles with scattered rhonchi and end expiratory wheezing Abdomen: Soft, no tenderness, positive bowel sounds in all 4 quadrant no guarding or rebound, positive for distention Skin: No new rash Psych: Alert and oriented 3 Neuro: No focal deficit Bilateral lower extremity trace edema - Labs CBC & Chem 7: 10/14/17 06:16 10/14/17 06:16 Labs: Abnormal Lab Results - Last 24 Hours (Table) 10/13/17 10/13/17 10/13/17 Range/Units 11:28 11:29 16:23 WBC (3.8-10.6) k/uL RBC (4.30-5.90) m/uL MCV (80.0-100.0) fL Neutrophils # (1.3-7.7) k/uL Lymphocytes # (1.0-4.8) k/uL APTT 35.4 H (22.0-30.0) sec BUN (9-20) mg/dL Glucose (74-99) mg/dL POC Glucose (mg/dL) 242 H 215 H (75-99) mg/dL AST (17-59) U/L Troponin I (0.000-0.034) ng/mL 10/13/17 10/13/17 10/13/17 Range/Units 19:44 19:46 20:51 WBC (3.8-10.6) k/uL RBC (4.30-5.90) m/uL MCV (80.0-100.0) fL Neutrophils # (1.3-7.7) k/uL Lymphocytes # (1.0-4.8) k/uL APTT 48.4 H (22.0-30.0) sec BUN (9-20) mg/dL Glucose (74-99) mg/dL POC Glucose (mg/dL) 284 H (75-99) mg/dL AST (17-59) U/L Troponin I 0.046 H* (0.000-0.034) ng/mL 10/14/17 10/14/17 10/14/17 Range/Units 06:04 06:16 06:16 WBC 11.8 H (3.8-10.6) k/uL RBC 3.94 L (4.30-5.90) m/uL MCV 100.5 H (80.0-100.0) fL Neutrophils # 10.5 H (1.3-7.7) k/uL Lymphocytes # 0.6 L (1.0-4.8) k/uL APTT (22.0-30.0) sec BUN 33 H (9-20) mg/dL Glucose 151 H (74-99) mg/dL POC Glucose (mg/dL) 148 H (75-99) mg/dL AST 75 H (17-59) U/L Troponin I (0.000-0.034) ng/mL Microbiology - Last 24 Hours (Table) 10/13/17 19:07 Gram Stain - Preliminary Sputum Sputum Culture - Preliminary 10/12/17 18:37 Blood Culture - Preliminary Blood No Growth after 24 hours Assessment and Plan Plan: 1. Acute respiratory failure. 2. Chest pain with acute non-ST elevated myocardial infarction. 3. Elevated troponin. 4. Coronary artery disease status post bypass surgery. 5. Acute bronchitis, rule out early pneumonia. 6. Acute possible systolic heart failure exacerbation. 7. Hypertension. 8. Hyperlipidemia. 9. Diabetes mellitus type 2. 10. Morbid obesity. 11. Chronic kidney disease. 12. Slight elevation in bilirubin Heart catheterization was completed as above. Patient will remain on antibiotics for bronchitis as well as DuoNeb treatments and Pulmicort. He is continued on IV Lasix at 40 mg IV every 12 hours, daily weight and I&O. Recheck BMP in the morning. Anticipate possible discharge by tomorrow Discharge plan: Return home tomorrow Impression and plan of care have been directed as dictated by the signing physician. Seble Ventura nurse practitioner acting as scribe for signing physician.
--- NOTE | 2017-10-14 10:15 | P.PN ---
Subjective Principal diagnosis: Patient is doing well. No chest discomfort no dizziness lightheadedness. He does have shortness of breath and on examination he has bilateral rhonchi. He was admitted with shortness of breath on exertion. He underwent coronary angiography which did not reveal any significant progression of his coronary artery disease. TELLO to the LAD is patent On examination he is afebrile 97.3F, pulse rate in the 80s and 90s, blood pressure 127/69 mmHg Breath sounds are reduced bilaterally with bilateral rhonchi Heart sounds S1 and S2 are soft no murmurs developed no rub Abdomen is soft nontender Extremities warm no edema there is no hematoma Impression Shortness of breath on exertion, likely bronchitis Coronary artery disease without any significant progression Suggest Stop IV nitroglycerin and add oral nitrates Objective - Vital Signs Vital signs: Vital Signs Temp 97.3 F L 10/14/17 08:00 Pulse 78 10/14/17 08:00 Resp 20 10/14/17 08:00 BP 127/69 10/14/17 08:00 Pulse Ox 94 L 10/14/17 08:00 Intake & Output 10/13/17 10/14/17 10/14/17 18:59 06:59 18:59 Intake Total 879.493 176.000 Output Total 1550 Balance 879.493 -1374.000 Weight 135 kg Intake: IV 158 Intake, IV Titration 417.493 18.000 Amount Heparin Sodium,Porcine/ 296.493 D5w Pmx 25,000 unit In Dextrose/Water 1 500ml. bag @ 8.89 UNITS/KG/HR 20 mls/hr IV .Q24H [facility] Rx#: [id number] Nitroglycerin-D5w Pmx 50 18.000 mg In Dextrose/Water 1 250ml.bag @ 5 MCG/MIN 1.5 mls/hr IV .Q24H [facility] Rx#: [id number] Sodium Chloride 0.9% 1, 121 000 ml In Empty Bag 1 bag @ 1 ML/KG/HR 121.4 mls/ hr IV .Q8H15M [facility] Rx#: [id number] Oral 462 Output: Urine 1550 Other: Voiding Method Urinal Urinal Urinal # Voids 3 - Labs CBC & Chem 7: 10/14/17 06:16 10/14/17 06:16 Labs: Abnormal Lab Results - Last 24 Hours (Table) 10/13/17 10/13/17 10/13/17 Range/Units 11:28 11:29 16:23 WBC (3.8-10.6) k/uL RBC (4.30-5.90) m/uL MCV (80.0-100.0) fL Neutrophils # (1.3-7.7) k/uL Lymphocytes # (1.0-4.8) k/uL APTT 35.4 H (22.0-30.0) sec BUN (9-20) mg/dL Glucose (74-99) mg/dL POC Glucose (mg/dL) 242 H 215 H (75-99) mg/dL AST (17-59) U/L Troponin I (0.000-0.034) ng/mL 10/13/17 10/13/17 10/13/17 Range/Units 19:44 19:46 20:51 WBC (3.8-10.6) k/uL RBC (4.30-5.90) m/uL MCV (80.0-100.0) fL Neutrophils # (1.3-7.7) k/uL Lymphocytes # (1.0-4.8) k/uL APTT 48.4 H (22.0-30.0) sec BUN (9-20) mg/dL Glucose (74-99) mg/dL POC Glucose (mg/dL) 284 H (75-99) mg/dL AST (17-59) U/L Troponin I 0.046 H* (0.000-0.034) ng/mL 10/14/17 10/14/17 10/14/17 Range/Units 06:04 06:16 06:16 WBC 11.8 H (3.8-10.6) k/uL RBC 3.94 L (4.30-5.90) m/uL MCV 100.5 H (80.0-100.0) fL Neutrophils # 10.5 H (1.3-7.7) k/uL Lymphocytes # 0.6 L (1.0-4.8) k/uL APTT (22.0-30.0) sec BUN 33 H (9-20) mg/dL Glucose 151 H (74-99) mg/dL POC Glucose (mg/dL) 148 H (75-99) mg/dL AST 75 H (17-59) U/L Troponin I (0.000-0.034) ng/mL Microbiology - Last 24 Hours (Table) 10/13/17 19:07 Gram Stain - Preliminary Sputum Sputum Culture - Preliminary 10/12/17 18:37 Blood Culture - Preliminary Blood No Growth after 24 hours
[2017-10-14 11:09] LABS: Glucose,Whole Blood 184 mg/dL (75-99)
[2017-10-14 12:20] VITALS: RESP 18
[2017-10-14 15:07] VITALS: BMI 42.7
[2017-10-14 16:23] LABS: Glucose,Whole Blood 126 mg/dL (75-99)
[2017-10-14 21:03] LABS: Glucose,Whole Blood 145 mg/dL (75-99)
[2017-10-15 04:33] LABS: Basophils % (A) 0 %; Eosinophils # (A) 0.1 k/uL (0-0.7); Eosinophils % (A) 1 %; HGB 13.7 gm/dL (13.0-17.5); Lymphocytes # (A) 1.4 k/uL (1.0-4.8); Lymphocytes % (A) 17 %; MCH 34.3 pg (25.0-35.0); MCHC 33.5 g/dL (31.0-37.0); MCV 102.5 fL (80.0-100.0); Macrocytosis Slight; Mean Platelet Volume 8.3; Monocytes # (A) 0.4 k/uL (0-1.0); Monocytes % (A) 4 %; Neutrophils % (A) 75 %; Platelet Count 164 k/uL (150-450); RDW 14.1 % (11.5-15.5)
[2017-10-15 04:43] LABS: Calcium 8.9 mg/dL (8.4-10.2); Magnesium 2.2 mg/dL (1.6-2.3); Potassium 4.2 mmol/L (3.5-5.1)
[2017-10-15 06:08] LABS: Glucose,Whole Blood 114 mg/dL (75-99)
[2017-10-15] MEDS: INSULIN ASPART 100 UNIT/ML 1 ML 10 ML VIAL SQ SCH ×2 (06:22→12:17)
[2017-10-15] MEDS: BUDESONIDE 0.5 MG/2 ML NEBU INHALATION SCH (07:50)
[2017-10-15] MEDS: IPRATROPIUM-ALBUTEROL 3 ML NEB INHALATION SCH ×2 (07:50→11:55)
[2017-10-15] MEDS: METOPROLOL TARTRATE 50 MG TAB PO SCH (08:20)
[2017-10-15] MEDS: ASPIRIN 325 MG TAB PO SCH (08:20)
[2017-10-15] MEDS: LISINOPRIL 10 MG TAB PO SCH (08:21)
[2017-10-15] MEDS: ISOSORBIDE MONONITRATE ER 30 MG TAB.ER.24H PO SCH (08:21)
[2017-10-15] MEDS: amLODIPine 10 MG TAB PO SCH (08:21)
[2017-10-15] MEDS: ATORVASTATIN 40 MG TAB PO SCH (08:21)
[2017-10-15] MEDS: CLOPIDOGREL 75 MG TAB PO SCH (08:21)
[2017-10-15] MEDS: FUROSEMIDE 10 MG/ML 4 ML VIAL IV SCH (08:23)
[2017-10-15] MEDS: INSULIN DETEMIR 100 UNIT/ML 10 ML VIAL SQ SCH (08:23)
[2017-10-15] MEDS ORDERED: AZITHROMYCIN 500 MG TAB PO SCH (09:00)
[2017-10-15 11:27] LABS: Glucose,Whole Blood 132 mg/dL (75-99)
--- NOTE | 2017-10-15 12:44 | P.PN ---
Subjective Progress Note Date: 10/15/17 This is a pleasant 77-year-old gentleman with known history of coronary artery disease and prior bypass surgery, hypertension, hyperlipidemia, non-insulin- dependent diabetes, who presented to the hospital with symptoms of chest tightness. He underwent a cardiac catheterization by Dr. Holt which revealed calcified right and left coronary system, severe distal left main disease, intermediate to severe disease involving the ostial and proximal circumflex, occluded LAD in the midportion, the LAD is protected by the TELLO which is patent and functioning normally. Medical therapy was advised. Patient was seen and examined this morning, denies any further shortness of breath, mild decreased air exchange today. Overall the patient feels well and is eager to be discharged home today. Objective - Vital Signs Vital signs: Vital Signs Temp 96.4 F L 10/15/17 08:00 Pulse 86 10/15/17 12:04 Resp 18 10/15/17 08:00 BP 142/62 10/15/17 08:00 Pulse Ox 92 L 10/15/17 08:00 Intake & Output 10/14/17 10/15/17 10/15/17 18:59 06:59 18:59 Intake Total 480 20 240 Output Total 800 300 Balance -320 -280 240 Weight 135 kg 120.4 kg Intake: IV 20 0.9 FLUSH 20 Oral 480 240 Output: Urine 800 300 Other: Voiding Method Urinal Urinal # Voids 1 - Exam PHYSICAL EXAMINATION: GENERAL: 77-year-old gentleman in no apparent distress at the time of my examination. HEENT: Head is atraumatic, normocephalic. Pupils equal, round. Sclera anicteric. Conjunctiva are clear. Mucous membranes of the mouth are moist. Neck is supple. There is no elevated jugular venous pressure.] bruit is heard. HEART EXAMINATION: Heart S1, S2 normal. No murmur or gallop heard. CHEST EXAMINATION: His reveal decreased air exchange throughout. No rhonchi audible today. ABDOMEN: Soft, nontender. Bowel sounds are heard. No organomegaly noted. EXTREMITIES: 2+ peripheral pulses with no evidence of peripheral edema and no calf tenderness noted. NEUROLOGIC patient is awake, alert and oriented -3. . - Labs CBC & Chem 7: 10/15/17 04:15 10/15/17 04:21 Labs: Abnormal Lab Results - Last 24 Hours (Table) 10/14/17 10/14/17 10/15/17 Range/Units 16:22 21:02 04:15 RBC 4.00 L (4.30-5.90) m/uL MCV 102.5 H (80.0-100.0) fL BUN (9-20) mg/dL Creatinine (0.66-1.25) mg/dL Glucose (74-99) mg/dL POC Glucose (mg/dL) 126 H 145 H (75-99) mg/dL 10/15/17 10/15/17 10/15/17 Range/Units 04:21 06:07 11:25 RBC (4.30-5.90) m/uL MCV (80.0-100.0) fL BUN 35 H (9-20) mg/dL Creatinine 1.30 H (0.66-1.25) mg/dL Glucose 108 H (74-99) mg/dL POC Glucose (mg/dL) 114 H 132 H (75-99) mg/dL Microbiology - Last 24 Hours (Table) 10/13/17 19:07 Gram Stain - Final Sputum Sputum Culture - Final 10/12/17 18:37 Blood Culture - Preliminary Blood No Growth after 48 hours Assessment and Plan Plan: 1. Acute respiratory failure. 2. Chest pain with acute non-ST elevated myocardial infarction. Status post cardiac catheterization, maximal medical therapy advised. 3. Elevated troponin. 4. Coronary artery disease status post bypass surgery. 5. Acute bronchitis, rule out early pneumonia. 6. Acute possible systolic heart failure exacerbation. 7. Hypertension. 8. Hyperlipidemia. 9. Diabetes mellitus type 2. 10. Morbid obesity. 11. Chronic kidney disease. Plan From cardiology's perspective, patient may be able to be discharged home today. We will make him a follow-up appointment to see Dr. Ford in the office post discharge. DNP note has been reviewed, I agree with a documented findings and plan of care. Patient was seen and examined.
[2017-10-15 13:34] VITALS: BP 104/53; PULSE 76; TEMP 97.6
[2017-10-15] MEDS ORDERED: FUROSEMIDE 40 MG TAB PO SCH (16:00)
[2017-10-16] MEDS ORDERED: ASPIRIN 81 MG PO SCH (09:00)
--- NOTE | 2017-10-16 10:50 | CDI ---
Last Revision, April 2017 Documentation Clarification Form Date: 10/15/17 From: Jory Zuniga RN, CCDS Admit Date: 10/12/2017 8:54:00 PM Patient Name: Viraj Verdin Visit Number: [id number] Discharge Date: ATTENTION: The Clinical Documentation Specialists (CDI) and [facility] Coding Staff appreciate your assistance in clarifying documentation. Please respond to the clarification below the line at the bottom and electronically sign. The CDI & [facility] Coding staff will review the response and follow-up if needed. Please note: Queries are made part of the Legal Health Record. If you have any questions, please contact the author of this message via ITS. Dr. Luis Carlos Lawson The patient presented with the following respiratory symptoms: respiratory distress, wheezes, rhonchi (Bronchospastic cough) per ED evaluation. Documentation and location in medical record included: 15 pound weight gain in 1 week with appropriate medical regimen. History/Risk Factors: Congestive heart failure, COPD, Diabetes mellitus, Hypertension, GA (unknown date) Tobacco use: Former smoker Clinical Indicators: Presenting wiith dyspnea, cough and chest pain. Patient is wheezing through with some 3+ peripheral edema.. the patient has pulmonary edema and an elevated BNP 3200. Respiratory effort noted as short of breath and labored. Vital signs: 157/63 89 18 95 % RA, 98 % 2/L NC Treatment: Ventolin Nebulized Monitor O2 sat's (titrate) Lasix IV In your professional opinion, can you please further clarify if these findings signify one of the following conditions? Acuity: Acute Chronic Acute on Chronic Specificity: Respiratory Failure, further specify (if known): With hypercapnia? With hypoxia? Respiratory Distress Other Diagnosis, please specify Unable to determine Please continue to document in your progress notes and discharge summary in order to capture severity of illness and risk of mortality. Include clinical findings that support your diagnosis. MTDD
--- NOTE | 2017-10-17 11:25 | P.DS ---
Providers Date of admission: 10/12/17 20:54 Expected date of discharge: 10/15/17 Attending physician: Luis Carlos Lawson Consults: 10/12/17 20:49 Consult Physician Routine Consulting Provider: Sergei Holt Consult Reason/Comments: Congestive heart failure, troponin elevation Do you want consulting provider notified?: Yes Primary care physician: [facility] Course: This is 77 years old male with past medical history significant for coronary artery disease presents to the emergency department with worsening shortness of breath and productive cough. Patient stated that 4 days ago he started having nonproductive cough which turned to be 2 yellow later to green productive cough with congestion to the chest agents A during dose 4 days he believes that he gained most more fluid especially in the lower extremity and on his lungs that prevented him from sleeping during the nighttime with difficulty in breathing patient was using more pillows and eventually had to sleep in sitting position due to worsening shortness breath. Patient also reported wheezing and reports pain bilaterally when coughing. Patient denied any fever, chills, nausea, vomiting, abdominal pain, dizziness or lightheadedness. Patient stated that he's compliment with her medication and takes his Lasix everyday check on his weight on daily basis and believes that he gained at least 15 pounds in the last 1 week despite using the appropriate regimen. Patient quit smoking long time ago denied being diagnosed with asthma or COPD and said that he has never used inhalers in the past. Patient reported occasional chest pain that been happening for a long time located to the left chest and radiating to the mediastinum and right chest and was scheduled to have cardiac catheterization on outpatient basis with his primary occupational health and safety adviser 10/14: Per patient's nurse, patient developed chest pain 10 out of 10 last night with a wide complex tachycardia and ST elevation. He went to the sleep lab technician last evening. Patient states that he had an updraft treatment and shortly after that he was breathing hard and developed chest pain. He was concerned that it was related to the updraft Patient underwent heart catheterization yesterday with Dr. Holt the found calcified right and left coronary systems. Severe distal left main disease. Intermediate to severe disease involving the ostial and proximal left circumflex. Occluded left anterior descending artery in the midportion. The left anterior descending artery is protected by TELLO which is patent and functioning. Findings were unchanged compared to heart cath done in July 2017. The distal left main disease May appeared to be slightly worse. Consider maximizing medical treatment at this point. If the patient continues to have chest discomfort, he may benefit from stenting of the distal left main to the left circumflex. The son has to be across the LAD and this might jeopardize the 2 diagonal branch that comes from the LAD. Patient has been hemodynamically stable. Pulse ox is 94% on 4 L. White count is 11.8, BUN 33 and creatinine 1.2. Blood glucose running between 148 and 284. AST is 75. ProBNP was 3360. Patient continues to have a productive cough and sputum culture is in progress. He states his breathing is better today. Anticipate discharge home tomorrow 10/15: Repeat BUN 35 and creatinine 1.3. Blood glucose running between 114 and 145. Pulse ox is 95% on room air. No need for home oxygen. Cardiology has changed IV Lasix to oral. Patient states breathing status is improved. Patient will be discharged home today in stable condition. Patient has been cleared for discharge by cardiology. Discharge diagnoses: 1. Acute respiratory distress without failure. 2. Chest pain with acute non-ST elevated myocardial infarction. 3. Elevated troponin. 4. Coronary artery disease status post bypass surgery. 5. Acute bronchitis, ruled out early pneumonia. 6. Acute possible systolic heart failure exacerbation. 7. Hypertension. 8. Hyperlipidemia. 9. Diabetes mellitus type 2. 10. Morbid obesity. 11. Chronic kidney disease III. 12. Slight elevation in bilirubin Discharge plan: Return home Impression and plan of care have been directed as dictated by the signing physician. Seble Ventura nurse practitioner acting as scribe for signing physician. Patient Condition at Discharge: Good Plan - Discharge Summary New Discharge Prescriptions: New Albuterol Inhaler [Ventolin Hfa Inhaler] 2 puff INHALATION RT-Q6H #1 inhaler Azithromycin [Zithromax] 500 mg PO DAILY #5 tab predniSONE 40 mg PO DAILY #10 tab Continue amLODIPine [Norvasc] 10 mg PO QAM Atorvastatin Calcium [Lipitor] 40 mg PO DAILY Aspirin 325 mg PO DAILY Enalapril [Vasotec] 10 mg PO BID Clopidogrel [Plavix] 75 mg PO QAM Glimepiride [Amaryl] 1 mg PO BID Insulin Detemir [Levemir Flextouch] 25 units SQ QAM Furosemide [Lasix] 40 mg PO BID Cholecalciferol [Vitamin D3] 2,000 unit PO DAILY Multivit-Mins/Iron/Folic/Lycop [Centrum Men's Tablet] 1 tab PO DAILY Nitroglycerin 0.4 mg SL DIRECTED PRN PRN Reason: Angina Metoprolol Tartrate [Lopressor] 25 mg PO BID metFORMIN HCL [Glucophage] 500 mg PO DAILY Isosorbide Mononitrate ER [Imdur] 30 mg PO DAILY #30 tab.er.24h Discharge Medication List Aspirin 325 mg PO DAILY 06/06/15 [History] Atorvastatin Calcium [Lipitor] 40 mg PO DAILY 06/06/15 [History] Clopidogrel [Plavix] 75 mg PO QAM 06/06/15 [History] Enalapril [Vasotec] 10 mg PO BID 06/06/15 [History] Glimepiride [Amaryl] 1 mg PO BID 06/06/15 [History] amLODIPine [Norvasc] 10 mg PO QAM 06/06/15 [History] Insulin Detemir [Levemir Flextouch] 25 units SQ QAM 02/20/16 [History] Furosemide [Lasix] 40 mg PO BID 03/06/16 [History] Cholecalciferol [Vitamin D3] 2,000 unit PO DAILY 04/13/16 [History] Multivit-Mins/Iron/Folic/Lycop [Centrum Men's Tablet] 1 tab PO DAILY 04/13/16 [ History] Nitroglycerin 0.4 mg SL DIRECTED PRN 04/12/17 [History] Metoprolol Tartrate [Lopressor] 25 mg PO BID 07/06/17 [History] metFORMIN HCL [Glucophage] 500 mg PO DAILY 07/06/17 [History] Isosorbide Mononitrate ER [Imdur] 30 mg PO DAILY #30 tab.er.24h 07/10/17 [Rx] Albuterol Inhaler [Ventolin Hfa Inhaler] 2 puff INHALATION RT-Q6H #1 inhaler 04/22 [Rx] Azithromycin [Zithromax] 500 mg PO DAILY #5 tab 10/15/17 [Rx] predniSONE 40 mg PO DAILY #10 tab 10/15/17 [Rx] Follow up Appointment(s)/Referral(s): Richard Ford MD [STAFF PHYSICIAN] - 1 Week (Office to call with appointment.) Aristeo Garrett MD [Primary Care Provider] - 10/18/17 10:45 am (Saturday.) Patient Instructions/Handouts: *[facility] - After Heart Catheterization - Music Educator Instructions, Left Heart Catheterization (DC), Acute Bronchitis (GEN) Discharge Disposition: HOME SELF-CARE
== END 2017-10-15 14:29 | disposition home or self-care (01) | DRG 280 ==
LOC: EC 17:52 → 6SEL 20:54
PROVIDERS: ADMIT Internal Medicine; ATTEND Internal Medicine
PROC: B2111ZZ Fluoroscopy of Multiple Coronary Arteries using Low Osmolar Contrast (ICD-10-PCS; 2017-10-13)
PROC: B2181ZZ Fluoroscopy of Left Internal Mammary Bypass Graft using Low Osmolar Contrast (ICD-10-PCS; 2017-10-13)
PROC: 4A023N7 Measurement of Cardiac Sampling and Pressure, Left Heart, Percutaneous Approach (ICD-10-PCS; principal; 2017-10-13 21:40)
DX: I21.4 Non-ST elevation (NSTEMI) myocardial infarction (principal); I50.23 Acute on chronic systolic (congestive) heart failure; J44.1 Chronic obstructive pulmonary disease with (acute) exacerbation; I13.0 Hypertensive heart and chronic kidney disease with heart failure and stage 1 through stage 4 chronic kidney disease, or unspecified chronic kidney disease; J44.0 Chronic obstructive pulmonary disease with (acute) lower respiratory infection; I25.10 Atherosclerotic heart disease of native coronary artery without angina pectoris; E78.5 Hyperlipidemia, unspecified; E11.22 Type 2 diabetes mellitus with diabetic chronic kidney disease; E66.01 Morbid (severe) obesity due to excess calories; L98.9 Disorder of the skin and subcutaneous tissue, unspecified; M19.90 Unspecified osteoarthritis, unspecified site; I25.82 Chronic total occlusion of coronary artery; J20.9 Acute bronchitis, unspecified; N18.3 Chronic kidney disease, stage 3 (moderate); I49.3 Ventricular premature depolarization; Z95.1 Presence of aortocoronary bypass graft; Z79.02 Long term (current) use of antithrombotics/antiplatelets; Z79.82 Long term (current) use of aspirin; Z79.4 Long term (current) use of insulin; Z79.899 Other long term (current) drug therapy; Z88.0 Allergy status to penicillin; Z95.2 Presence of prosthetic heart valve; Z87.891 Personal history of nicotine dependence; I25.2 Old myocardial infarction; Z68.38 Body mass index [BMI] 38.0-38.9, adult; Z95.0 Presence of cardiac pacemaker; Z96.653 Presence of artificial knee joint, bilateral; Z82.49 Family history of ischemic heart disease and other diseases of the circulatory system; Z80.0 Family history of malignant neoplasm of digestive organs
CPT/HCPCS: 36415; 71046; 80048; 80053; 82550; 82553; 83605; 83735; 83880; 84484; 85025; 85610; 85730; 87040; 87070; 87205; 93005; 93455; 94640; 94760; 96365; 96375; 96376; 99285

== ENCOUNTER → 2017-11-19 | Outpatient (CLI) | payer MEDICARE, BC ==
--- NOTE | 2017-11-19 15:11 | US ---
EXAMINATION TYPE: US venous doppler duplex LE LT DATE OF EXAM: 11/19/2017 2:52 PM COMPARISON: NONE CLINICAL HISTORY: 77-year-old male Left leg, Edema R60.9. Left leg swelling and foot last night. On blood thinners. No hx of blood clots. SIDE PERFORMED: Left TECHNIQUE: The lower extremity deep venous system is examined utilizing real time linear array sonog donnie with graded compression, doppler sonography and color-flow sonography. FINDINGS: VESSELS IMAGED: External Iliac Vein (EIV) Common Femoral Vein Deep Femoral Vein Greater Saphenous Vein * Femoral Vein Popliteal Vein Small Saphenous Vein * Proximal Calf Veins (* superficial vessels) Left Leg: Negative for DVT IMPRESSION: No evidence for DVT within the left lower extremity imaged from the groin to the upper calf.
== END | disposition home or self-care (01) ==
LOC: RADUSWWP 14:15
PROVIDERS: ATTEND Family Medicine
DX: R60.0 Localized edema (principal)

== ENCOUNTER 2018-05-05 18:03 | Inpatient (IN) | payer MEDICARE, BC ==
[2018-05-05] MEDS ORDERED: SODIUM CHLORIDE 0.9% 1,000 ML IV STA (18:06)
[2018-05-05] MEDS ORDERED: SODIUM BICARB 8.4% 50 ML SYR (1 MEQ/ML) ONE (18:13)
[2018-05-05] MEDS ORDERED: EPINEPHrine 10 ML SYRINGE (0.1 MG/ML) ONE (18:13)
--- NOTE | 2018-05-05 18:30 | ED ---
CPR HPI - General Stated Complaint: Cardiac arrest Time Seen by Provider: 05/05/18 18:06 Source: EMS, RN notes reviewed, old records reviewed Mode of arrival: EMS - History of Present Illness Initial Comments: Is a 76-year-old male with a history of coronary artery disease COPD peripheral artery disease CHF pacemaker who apparently was a witnessed arrest this prior to arrival he was seen in a chair and fell out onto the floor CPR was started immediately fire rescue responded within 5-10 minutes patient was shocked twice from his rhythm into a rhythm with a pulse and went back into a pulseless rhythm shocked again. He was given 2 epinephrines by rescue. He was brought here for evaluation he maintained his pulsatile arrival shortly after arrival he went to a PEA arrest. CPR was started immediately. MD Complaint: collapsed during activity - Related Data Home Medications Medication Instructions Recorded Confirmed Aspirin 325 mg PO DAILY 06/06/15 10/12/17 Atorvastatin Calcium [Lipitor] 40 mg PO DAILY 06/06/15 10/12/17 Clopidogrel [Plavix] 75 mg PO QAM 06/06/15 10/12/17 Enalapril [Vasotec] 10 mg PO BID 06/06/15 10/12/17 Glimepiride [Amaryl] 1 mg PO BID 06/06/15 10/12/17 amLODIPine [Norvasc] 10 mg PO QAM 06/06/15 10/12/17 Insulin Detemir [Levemir Flextouch] 25 units SQ QAM 02/20/16 10/12/17 Furosemide [Lasix] 40 mg PO BID 03/06/16 10/12/17 Cholecalciferol [Vitamin D3] 2,000 unit PO DAILY 04/13/16 10/12/17 Multivit-Mins/Iron/Folic/Lycop 1 tab PO DAILY 04/13/16 10/12/17 [Centrum Men's Tablet] Nitroglycerin 0.4 mg SL DIRECTED PRN 04/12/17 10/13/17 Metoprolol Tartrate [Lopressor] 25 mg PO BID 07/06/17 10/12/17 metFORMIN HCL [Glucophage] 500 mg PO DAILY 07/06/17 10/12/17 Previous Rx's Medication Instructions Recorded Isosorbide Mononitrate ER [Imdur] 30 mg PO DAILY #30 tab.er.24h 07/10/17 Albuterol Inhaler [Ventolin Hfa 2 puff INHALATION RT-Q6H #1 inhaler 10/15/17 Inhaler] Azithromycin [Zithromax] 500 mg PO DAILY #5 tab 10/15/17 predniSONE 40 mg PO DAILY #10 tab 10/15/17 Allergies Allergy/AdvReac Type Severity Reaction Status Date / Time Penicillins Allergy Itching Verified 05/05/18 21:36 Review of Systems ROS Statement: Those systems with pertinent positive or pertinent negative responses have been documented in the HPI. ROS Other: All systems not noted in ROS Statement are negative. Limitations: ROS unobtainable due to patients medical condition Past Medical History Past Medical History: Coronary Artery Disease (CAD), Cancer, Heart Failure, Diabetes Mellitus, Hyperlipidemia, Hypertension, Myocardial Infarction ([place]), Osteoarthritis (OA), Skin Disorder, Vascular Disorder Additional Past Medical History / Comment(s): Heart Murmur, LT Leg EDEMA, PAIN (HX VEIN HARVESTING). 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 Roshni Knee Replacements. EXC Roshni Cataract. DOUBLE CABG. AORTIC HEART VALVE REPLACEMENT, AND PACEMAKER 2015. ABD Aortogram W/ RUNOFF. PTBA ROSHNI W/ STENTS X5, skin CA on nose removed Past Anesthesia/Blood Transfusion Reactions: No Reported Reaction Date of Last Stent Placement:: 2015 Type of Cardiac Device: Permanent Pacemaker Device Placement Date:: 2015 Past Psychological History: No Psychological Hx Reported Smoking Status: Former smoker Past Alcohol Use History: Occasional Additional Past Alcohol Use History / Comment(s): Started smoking age 8, quit smoking 1997, SMOKED 2 PPD. Patient has 1 alcoholic drink (6 shots) per night before bed. Past Drug Use History: None Reported - Past Family History Mother Family Medical History: Cancer Additional Family Medical History / Comment(s): Mother from colon cancer. Sister(s) Family Medical History: Cancer Additional Family Medical History / Comment(s): Patient has one sister that from cancer but he does not know the type of cancer. Father Family Medical History: CVA/TIA Additional Family Medical History / Comment(s): Father from a cerebral hemorrhage. Daughter(s) Family Medical History: Cancer Additional Family Medical History / Comment(s): Patient has one daughter with cancer but does not know type. Brother(s) Additional Family Medical History / Comment(s): Patient has 1 brother that from a myocardial infarction. A second brother has but he does not know the underlying cause. General Exam - General Exam Comments Initial Comments: This is a well-developed well-nourished unresponsive male General appearance: other (Responsive) Head exam: Present: other (Abrasion seen in the right frontal temporal scalp no step-off no crepitation no foreign body no suture repair indicated) Eye exam: Present: other (Pupils are about 2 mm and) ENT exam: Present: other (#7 ET tube is present) Neck exam: Present: normal inspection, other (No stridor JVD or bruits) Respiratory exam: Present: chest wall tenderness (Abrasion seen to the anterior chest wall at the site of the Tristan device), other (Good breath sounds with bag valve) Cardiovascular Exam: Present: other (Initially tachycardic pulses then PEA) Extremities exam: Present: normal inspection Back exam: Present: normal inspection Neurological exam: Present: other (Unresponsive) Psychiatric exam: Present: other (Unresponsive) Skin exam: Present: dry, abrasion Course Vital Signs 05/05/18 18:22 Pulse Rate 77 Respiratory 18 Rate Blood Pressure 185/91 O2 Sat by Pulse 96 Oximetry - Reevaluation(s) Reevaluation #1: 05/05/18 19:08 Reevaluation after stabilization patient remains unresponsive is maintained blood pressure and pulse. CAT scan is pending. X-ray shows evidence of the tube to be in good position above the lázaro he does have evidence of pulmonary vascular congestion and cardiomegaly. Reevaluation #2: 05/05/18 21:44 I did reevaluate patient several occasions discuss with multiple family members the occurrence and the findings thus far. The patient was sitting in a counter apparently when he fell to the floor in arrest. He had been complaining of chest pain all day per family members. Reevaluation #3: 05/05/18 21:45 I did discuss the case and findings with several physicians including Dr. Brown , Dr. Ramos, Dr. Li. Patient be admitted to intensive care unit. Medical Decision Making - Lab Data Result diagrams: 05/05/18 18:26 05/05/18 18:26 Lab Results 05/05/18 05/05/18 05/05/18 Range/Units 18:26 18:26 18:26 WBC 15.5 H (3.8-10.6) k/uL RBC 3.60 L (4.30-5.90) m/uL Hgb 12.3 L (13.0-17.5) gm/dL Hct 37.8 L (39.0-53.0) % MCV 105.1 H (80.0-100.0) fL MCH 34.3 (25.0-35.0) pg MCHC 32.7 (31.0-37.0) g/dL RDW 13.2 (11.5-15.5) % Plt Count 212 (150-450) k/uL Neutrophils % (Manual) 63 % Band Neutrophils % 2 % Lymphocytes % (Manual) 33 % Monocytes % (Manual) 1 % Eosinophils % (Manual) 1 % Neutrophils # (Manual) 10.00 H (1.3-7.7) k/uL Lymphocytes # (Manual) 5.12 H (1.0-4.8) k/uL Monocytes # (Manual) 0.16 (0-1.0) k/uL Eosinophils # (Manual) 0.16 (0-0.7) k/uL Nucleated RBCs 0 (0-0) /100 WBC Manual Slide Review Performed Polychromasia Present Macrocytosis Slight PT (9.0-12.0) sec INR (<1.2) APTT (22.0-30.0) sec D-Dimer (<0.60) mg/L FEU Sample Site ABG pH (7.35-7.45) ABG pCO2 (35-45) mmHg ABG pO2 (83-108) mmHg ABG HCO3 (21-25) mmol/L ABG Total CO2 (19-24) mmol/L ABG O2 Saturation (94-97) % ABG Base Excess mmol/L Sheldon Test VBG pH 7.09 L* (7.31-7.41) VBG pCO2 73 H* (37-51) mmHg VBG HCO3 21 L (24-28) mmol/L FiO2 % Sodium (137-145) mmol/L Potassium (3.5-5.1) mmol/L Chloride (98-107) mmol/L Carbon Dioxide (22-30) mmol/L Anion Gap mmol/L BUN (9-20) mg/dL Creatinine (0.66-1.25) mg/dL Est GFR (CKD-EPI)AfAm (>60 ml/min/1.73 sqM) Est GFR (CKD-EPI)NonAf (>60 ml/min/1.73 sqM) Glucose (74-99) mg/dL Calcium (8.4-10.2) mg/dL Magnesium (1.6-2.3) mg/dL Total Bilirubin (0.2-1.3) mg/dL AST (17-59) U/L ALT (21-72) U/L Alkaline Phosphatase (38-126) U/L Total Creatine Kinase 78 (55-170) U/L CK-MB (CK-2) 3.6 H (0.0-2.4) ng/mL CK-MB (CK-2) Rel Index 4.6 Troponin I 0.094 H* (0.000-0.034) ng/mL NT-Pro-B Natriuret Pep pg/mL Total Protein (6.3-8.2) g/dL Albumin (3.5-5.0) g/dL Gastric Occult Blood (Negative) 05/05/18 05/05/18 05/05/18 Range/Units 18:26 18:26 18:26 WBC (3.8-10.6) k/uL RBC (4.30-5.90) m/uL Hgb (13.0-17.5) gm/dL Hct (39.0-53.0) % MCV (80.0-100.0) fL MCH (25.0-35.0) pg MCHC (31.0-37.0) g/dL RDW (11.5-15.5) % Plt Count (150-450) k/uL Neutrophils % (Manual) % Band Neutrophils % % Lymphocytes % (Manual) % Monocytes % (Manual) % Eosinophils % (Manual) % Neutrophils # (Manual) (1.3-7.7) k/uL Lymphocytes # (Manual) (1.0-4.8) k/uL Monocytes # (Manual) (0-1.0) k/uL Eosinophils # (Manual) (0-0.7) k/uL Nucleated RBCs (0-0) /100 WBC Manual Slide Review Polychromasia Macrocytosis PT 10.6 (9.0-12.0) sec INR 1.0 (<1.2) APTT 25.4 (22.0-30.0) sec D-Dimer 20.14 H (<0.60) mg/L FEU Sample Site ABG pH (7.35-7.45) ABG pCO2 (35-45) mmHg ABG pO2 (83-108) mmHg ABG HCO3 (21-25) mmol/L ABG Total CO2 (19-24) mmol/L ABG O2 Saturation (94-97) % ABG Base Excess mmol/L Sheldon Test VBG pH (7.31-7.41) VBG pCO2 (37-51) mmHg VBG HCO3 (24-28) mmol/L FiO2 % Sodium 141 (137-145) mmol/L Potassium 3.5 (3.5-5.1) mmol/L Chloride 104 (98-107) mmol/L Carbon Dioxide 21 L (22-30) mmol/L Anion Gap 16 mmol/L BUN 23 H (9-20) mg/dL Creatinine 1.71 H (0.66-1.25) mg/dL Est GFR (CKD-EPI)AfAm 43 (>60 ml/min/1.73 sqM) Est GFR (CKD-EPI)NonAf 37 (>60 ml/min/1.73 sqM) Glucose 385 H (74-99) mg/dL Calcium 9.0 (8.4-10.2) mg/dL Magnesium 2.5 H (1.6-2.3) mg/dL Total Bilirubin 1.4 H (0.2-1.3) mg/dL AST 188 H (17-59) U/L ALT 101 H (21-72) U/L Alkaline Phosphatase 104 (38-126) U/L Total Creatine Kinase (55-170) U/L CK-MB (CK-2) (0.0-2.4) ng/mL CK-MB (CK-2) Rel Index Troponin I (0.000-0.034) ng/mL NT-Pro-B Natriuret Pep 2440 pg/mL Total Protein 5.9 L (6.3-8.2) g/dL Albumin 3.4 L (3.5-5.0) g/dL Gastric Occult Blood (Negative) 05/05/18 05/05/18 Range/Units 18:50 21:32 WBC (3.8-10.6) k/uL RBC (4.30-5.90) m/uL Hgb (13.0-17.5) gm/dL Hct (39.0-53.0) % MCV (80.0-100.0) fL MCH (25.0-35.0) pg MCHC (31.0-37.0) g/dL RDW (11.5-15.5) % Plt Count (150-450) k/uL Neutrophils % (Manual) % Band Neutrophils % % Lymphocytes % (Manual) % Monocytes % (Manual) % Eosinophils % (Manual) % Neutrophils # (Manual) (1.3-7.7) k/uL Lymphocytes # (Manual) (1.0-4.8) k/uL Monocytes # (Manual) (0-1.0) k/uL Eosinophils # (Manual) (0-0.7) k/uL Nucleated RBCs (0-0) /100 WBC Manual Slide Review Polychromasia Macrocytosis PT (9.0-12.0) sec INR (<1.2) APTT (22.0-30.0) sec D-Dimer (<0.60) mg/L FEU Sample Site RAD ABG pH 7.24 L (7.35-7.45) ABG pCO2 42 (35-45) mmHg ABG pO2 129 H (83-108) mmHg ABG HCO3 18 L (21-25) mmol/L ABG Total CO2 19 (19-24) mmol/L ABG O2 Saturation 98.9 H (94-97) % ABG Base Excess -9.7 mmol/L Sheldon Test Yes VBG pH (7.31-7.41) VBG pCO2 (37-51) mmHg VBG HCO3 (24-28) mmol/L FiO2 100 % Sodium (137-145) mmol/L Potassium (3.5-5.1) mmol/L Chloride (98-107) mmol/L Carbon Dioxide (22-30) mmol/L Anion Gap mmol/L BUN (9-20) mg/dL Creatinine (0.66-1.25) mg/dL Est GFR (CKD-EPI)AfAm (>60 ml/min/1.73 sqM) Est GFR (CKD-EPI)NonAf (>60 ml/min/1.73 sqM) Glucose (74-99) mg/dL Calcium (8.4-10.2) mg/dL Magnesium (1.6-2.3) mg/dL Total Bilirubin (0.2-1.3) mg/dL AST (17-59) U/L ALT (21-72) U/L Alkaline Phosphatase (38-126) U/L Total Creatine Kinase (55-170) U/L CK-MB (CK-2) (0.0-2.4) ng/mL CK-MB (CK-2) Rel Index Troponin I (0.000-0.034) ng/mL NT-Pro-B Natriuret Pep pg/mL Total Protein (6.3-8.2) g/dL Albumin (3.5-5.0) g/dL Gastric Occult Blood Positive (Negative) Critical Care Time Critical Care Time: Yes Critical Care Time: 54 minutes of critical care time which includes initial assessment history physical labs x-rays multiple re-evaluations patient this does also include CPR upon arrival. Discussion with the paramedics discussion multiple family members and multiple physicians. Admission orders and documentation of the above Disposition Clinical Impression: Cardiac arrest due to other underlying condition, Cerebral anoxia, Elevated troponin, Elevated d-dimer, Renal insufficiency syndrome, Upper GI bleed Disposition: ADMITTED IP TO THIS [facility] Condition: Critical Referrals: None,Stated [REFERRING] - 1-2 days
[2018-05-05 18:43] LABS: HCT 37.8 % (39.0-53.0); HGB 12.3 gm/dL (13.0-17.5); MCH 34.3 pg (25.0-35.0); MCHC 32.7 g/dL (31.0-37.0); MCV 105.1 fL (80.0-100.0); Macrocytosis Slight; Platelet Count 212 k/uL (150-450); RDW 13.2 % (11.5-15.5); VBG PH 7.09 (7.31-7.41); WBC 15.5 k/uL (3.8-10.6)
[2018-05-05 18:54] LABS: ABG Base Excess -9.7 mmol/L; ABG HCO3 18 mmol/L (21-25); ABG Oxygen Saturation 98.9 % (94-97); ABG PCO2 42 mmHg (35-45); ABG PH 7.24 (7.35-7.45); ABG PO2 129 mmHg (83-108); ABG TCO2 19 mmol/L (19-24)
[2018-05-05 18:55] LABS: Albumin 3.4 g/dL (3.5-5.0); Magnesium 2.5 mg/dL (1.6-2.3); Potassium 3.5 mmol/L (3.5-5.1); Total Bilirubin 1.4 mg/dL (0.2-1.3); Total Protein 5.9 g/dL (6.3-8.2)
--- NOTE | 2018-05-05 19:03 | XR ---
EXAMINATION TYPE: XR chest 1V portable DATE OF EXAM: 05/05/2018 Comparison: 10/12/2017 Clinical History: 77-year-old male with pain Findings: Heart mild to moderately enlarged. Diffuse interstitial prominence. No sizable effusion. No appreciab le pneumothorax. Left anterior chest wall pacemaker generator with right atrial and right ventricular leads. Endovascular aortic valve replacement. Median sternotomy wires. Tip of the ET tube is not well seen but is estimated to be just below the level of the medial clavicu lar heads and is likely satisfactory. Attention on follow-up. NG tube courses below the diaphragm. Impression: 1. Cardiomegaly and interstitial changes. Correlate for pulmonary vascular congestion and mild CHF. 2. ET tube is not well seen but is suspected to be just below the level of the clavicular heads and s atisfactory. Attention on follow-up.
[2018-05-05 19:06] LABS: Partial Thromboplastin Time 25.4 sec (22.0-30.0); Prothrombin Time 10.6 sec (9.0-12.0)
[2018-05-05 19:09] LABS: D-Dimer 20.14 mg/L FEU (<0.60)
[2018-05-05 19:16] LABS: Creatine Kinase MB 3.6 ng/mL (0.0-2.4)
[2018-05-05 19:19] LABS: Troponin I 0.094 ng/mL (0.000-0.034)
[2018-05-05] MEDS ORDERED: POTASSIUM CHLORIDE 20 MEQ in WATER FOR INJECTION 1 100ML.BAG IVPB STA (19:26)
[2018-05-05 19:28] LABS: Band Neutrophils % 2 %; Eosinophils # (M) 0.16 k/uL (0-0.7); Lymphocytes # (M) 5.12 k/uL (1.0-4.8); Monocytes # (M) 0.16 k/uL (0-1.0); Neutrophils % (M) 63 %; Nucleated Red Blood Cells 0 /100 WBC (0-0); Polychromasia Present; Total Cells Counted 100
--- NOTE | 2018-05-05 19:52 | CT ---
EXAMINATION TYPE: CT brain catalino french DATE OF EXAM: 05/05/2018 COMPARISON: None HISTORY: 77-year-old male with pain after Cardiac arrest, fall with head injury CT DLP: 1840 mGycm Automated exposure control for dose reduction was used. Technique: Examination of the head was done in axial plane without intravenous contrast. Coronal and sagittal reconstructions performed. CT of the cervical spine was obtained in axial plane without intravenous injection of contrast mater ial. Coronal and sagittal reformatted images were obtained from the axial views for evaluation of f ractures, spinal alignment and canal. FINDINGS: Head: There is no evidence of acute intracranial hemorrhage, acute ischemic changes, mass, mass-effect, or extra-axial fluid collection. There is no effacement of cerebral sulci or basal subarachnoid cister ns. There is no hydrocephalus. There is no midline shift. Mckinnon-white matter distinction is preserv ed. Mild generalized supratentorial volume loss. Mild patchy periventricular white matter hypodensity sug gesting changes of chronic small vessel ischemic disease. 2. Moderate mucosal thickening ethmoid air cells. Mastoid air cells well pneumatized. Orbits and glob es are intact. There is a right frontal scalp contusion. No underlying calvarial fracture. Cervical spine: ET and NG tubes are present. Prominent dependent consolidation in the lower lobes with septal lines. Edema difficult to exclude. Partially visualized fractures of the right lateral and anterolateral second ribs on both sides. No craniocervical junction abnormality or predental space widening. Degenerative changes at the C1 de ns articulation with [id number] abutment. Prominent secretions within the nasopharynx accentuating the prevertebral space. Moderate to advanced disc/endplate degenerative change particularly from C5 through T1 levels. Facet and uncovertebral joint degenerative change throughout. Grade 1 anterolisthesis at C3-C4, C4-C5, C6-C7, and C7-T1. No acute fracture of the cervical spine. Excessive artifact from the patient's shoulders limits assessment of the spinal canal. Variable multilevel neural foraminal stenoses throughout, moderate to severe at some levels. Sagittal and coronal reformatted images confirm above findings. COMBINED IMPRESSION: 1. Right frontal scalp contusion. No underlying calvarial fracture or acute intracranial abnormality seen. 2. No acute fracture of the cervical spine. Moderate to advanced multilevel spondylotic change with m ultilevel grade 1 anterolisthesis. 3. Partially visualized fractures of the bilateral second ribs. Possibly iatrogenic if CPR was perfor med. 4. Prominent dependent consolidation in the lungs and septal lines. Extensive atelectasis and/or pulm onary edema difficult to exclude.
[2018-05-05] MEDS: PROPOFOL 1,000 MG in EMPTY BAG 1 BAG IV SCH (20:00)
[2018-05-05] MEDS ORDERED: PROPOFOL 1,000 MG in EMPTY BAG 1 BAG IV ONE ×3 (20:01→20:52)
[2018-05-05] MEDS ORDERED: NALOXONE 0.4 MG/ML 1 ML VIAL IV PRN (21:47)
[2018-05-05 22:07] LABS: ABG Base Excess -5.8 mmol/L; ABG HCO3 20 mmol/L (21-25); ABG Oxygen Saturation 99.3 % (94-97); ABG PCO2 39 mmHg (35-45); ABG PH 7.33 (7.35-7.45); ABG PO2 136 mmHg (83-108); ABG TCO2 21 mmol/L (19-24)
[2018-05-05] MEDS: SODIUM CHLORIDE 0.9% 1,000 ML IV SCH (22:48)
[2018-05-06 00:17] LABS: Glucose,Whole Blood 391 mg/dL (75-99)
[2018-05-06 00:46] VITALS: BMI 37.6
[2018-05-06] MEDS ORDERED: SODIUM CHLORIDE 0.9% 500 ML 500 ML IV ONE (01:41)
[2018-05-06] MEDS: NOREPINEPHRINE 4 MG in SODIUM CHLORIDE 0.9% 250 ML IV SCH ×2 (01:48→02:25)
[2018-05-06] MEDS ORDERED: PROPOFOL 1,000 MG in EMPTY BAG 1 BAG IV SCH (02:00)
[2018-05-06 02:28] LABS: Glucose,Whole Blood 345 mg/dL (75-99)
[2018-05-06] MEDS: INSULIN ASPART 100 UNIT/ML 1 ML 10 ML VIAL SQ SCH ×2 (02:34→08:58)
[2018-05-06] MEDS: PROPOFOL 1,000 MG in EMPTY BAG 1 BAG IV SCH ×2 (03:41→06:26)
[2018-05-06 04:47] LABS: Basophils % (A) 0 %; Eosinophils % (A) 0 %; HCT 32.2 % (39.0-53.0); HGB 10.8 gm/dL (13.0-17.5); Lymphocytes # (A) 0.4 k/uL (1.0-4.8); Lymphocytes % (A) 3 %; MCH 34.2 pg (25.0-35.0); MCHC 33.6 g/dL (31.0-37.0); MCV 101.9 fL (80.0-100.0); Macrocytosis Slight; Mean Platelet Volume 7.9; Monocytes # (A) 0.6 k/uL (0-1.0); Monocytes % (A) 4 %; Neutrophils # (A) 13.2 k/uL (1.3-7.7); Neutrophils % (A) 92 %; Platelet Count 148 k/uL (150-450); RBC 3.15 m/uL (4.30-5.90); RDW 13.2 % (11.5-15.5); WBC 14.4 k/uL (3.8-10.6)
[2018-05-06 05:14] LABS: Calcium 8.7 mg/dL (8.4-10.2); Magnesium 1.9 mg/dL (1.6-2.3); Phosphorus 2.9 mg/dL (2.5-4.5); Potassium 5.1 mmol/L (3.5-5.1)
[2018-05-06] MEDS: MAGNESIUM SULFATE-D5W PMX 1 GM in DEXTROSE/WATER 1 100ML.BAG IVPB SCH ×2 (06:27→08:27)
[2018-05-06] MEDS: SODIUM CHLORIDE 0.9% 1,000 ML IV SCH (06:28)
--- NOTE | 2018-05-06 06:55 | XR ---
EXAMINATION TYPE: XR chest 1V DATE OF EXAM: 05/06/2018 COMPARISON: 05/05/2018 HISTORY: Respiratory difficulty requiring ventilation TECHNIQUE: Single frontal view of the chest is obtained. FINDINGS: Heart is enlarged and is right-sided consolidation small effusion. Double lead pacemaker s een. ET and NG tube noted. Underlying COPD and chronic interstitial lung disease suspected. No signs IMPRESSION: 1. Postsurgical changes with cardiomegaly and stable interstitial changes which could been the basis of chronic interstitial lung disease or venous congestion. 2. Small right pleural effusion with basilar atelectasis or infiltrate
[2018-05-06 07:35] LABS: Appearance,Urine Turbid (Clear); Bacteria,Urine Moderate /hpf; Bilirubin,Urine Negative (Negative); Blood,Urine Large (Negative); Budding Yeast,Urine Many /hpf; Color,Urine Dark Brown; Glucose,Urine (UA) 2+ (Negative); Hyaline Casts,Urine 8 /lpf (0-2); Ketones,Urine Negative (Negative); Leukocyte Esterase,Urine Small (Negative); Nitrite,Urine Negative (Negative); Protein,Urine 2+ (Negative); RBC,Urine >182 /hpf (0-5); Urobilinogen,Urine <2.0 mg/dL (<2.0)
[2018-05-06 07:58] LABS: ABG Base Excess -0.1 mmol/L; ABG HCO3 24 mmol/L (21-25); ABG PCO2 34 mmHg (35-45); ABG PH 7.45 (7.35-7.45); ABG PO2 90 mmHg (83-108); ABG TCO2 25 mmol/L (19-24)
[2018-05-06 08:17] VITALS: TEMP 99.1
[2018-05-06] MEDS ORDERED: PANTOPRAZOLE 40 MG/10 ML VIAL IV SCH (09:00)
[2018-05-06] MEDS ORDERED: CHLORHEXIDINE GLUCONATE 15 ML CUP MUCOUS MEM SCH (09:00)
[2018-05-06 09:06] LABS: Glucose,Whole Blood 207 mg/dL (75-99)
[2018-05-06] MEDS ORDERED: LORazepam 2 MG/ML INJ IV PRN (10:14)
[2018-05-06] MEDS ORDERED: ATROPINE OPHTH SOLN 1% 5ML BTL SUBLINGUAL PRN (10:14)
[2018-05-06] MEDS ORDERED: ACETAMINOPHEN SUPPOSITORY 650 MG SUPP RECTAL PRN (10:14)
[2018-05-06] MEDS ORDERED: ONDANSETRON 4 MG/2 ML VIAL IVP PRN (10:14)
[2018-05-06] MEDS ORDERED: SCOPOLAMINE 1.5MG/72HR PATCH TRANSDERM SCH (10:15)
[2018-05-06] MEDS ORDERED: MORPHINE SULFATE (100 MG/2 ML) 100 MG in SODIUM CHLORIDE 0.9% 100 ML IV SCH (10:15)
[2018-05-06] MEDS: MORPHINE SULFATE 2 MG/ML SYRINGE IV PRN ×5 (10:24→13:24)
--- NOTE | 2018-05-06 11:58 | P.CNPUL ---
History of Present Illness Consult date: 05/06/18 Reason for consult: other (cardiac arrest) Chief complaint: Cardiac arrest History of present illness: This is a 76-year-old white male with history of coronary artery disease, chronic obstructive pulmonary disease, left main disease as noted on his previous cardiac catheterization, he was managed medically by Dr. Ramos. Patient had a sudden cardiac arrest yesterday, and this was witnessed. Patient fell off his chair, and CPR was initiated by bystanders/family members. Fire department rescue team arrived to the scene about 5-10 minutes later, patient was noted to be in ventricular fibrillation, and he was shocked twice. Given epinephrine 2, then he was noted to have a good pulse, and sinus rhythm. Patient was brought into the ER, he was already intubated, and CPR was not in progress. However upon arrival to the ER, shortly after the patient had a pulseless electrical activity arrest. CPR was restarted again, and there was spontaneous recovery of pulse and blood pressure. Patient was admitted to the ICU, and this consult was initiated. I did discuss the condition of the patient last night with the emergency room physician, Dr. Wilmer Connors, and he stated to me that the family would like him to be full code. However as soon as I walked into the room this morning, his daughter who has the power of assistant district attorney, and other family members approached me about comfort care measures, stated to me specifically that the patient never wanted to be on life-support machinery, and the issue of comfort care was never discussed with the family while he was in the ER. At any rate I suggested at least waiting for the urologist to see the patient, and to perform EEG, and to decide whether the patient didn't sustain any anoxic brain injury. However the family insisted on comfort care measures, and would prefer that he doesn't go through any of this. Then I clearly placed orders for comfort care measures based on the patient's own wishes and the wishes of his family members including his power of assistant district attorney. Patient was noted to be on mechanical ventilation, off sedation, off narcotics, extremely agitated and he was opening eyes only to deep painful stimuli. His ventilator settings, chest x-ray, all labs were reviewed and had a full discussion with the family at bedside. Review of Systems ROS unobtainable: due to endotracheal tube Past Medical History Past Medical History: Coronary Artery Disease (CAD), Cancer, Heart Failure, Diabetes Mellitus, Hyperlipidemia, Hypertension, Myocardial Infarction ([place]), Osteoarthritis (OA), Skin Disorder, Vascular Disorder Additional Past Medical History / Comment(s): Heart Murmur, LT Leg EDEMA, PAIN (HX VEIN HARVESTING). 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 Roshni Knee Replacements. EXC Roshni Cataract. DOUBLE CABG. AORTIC HEART VALVE REPLACEMENT, AND PACEMAKER 2016. ABD Aortogram W/ RUNOFF. PTBA ROSHNI W/ STENTS X5, skin CA on nose removed Past Anesthesia/Blood Transfusion Reactions: No Reported Reaction Date of Last Stent Placement:: 2015 Type of Cardiac Device: Permanent Pacemaker Device Placement Date:: 2015 Past Psychological History: No Psychological Hx Reported Smoking Status: Former smoker Past Alcohol Use History: Occasional Additional Past Alcohol Use History / Comment(s): Started smoking age 8, quit smoking 1997, SMOKED 2 PPD. Patient has 1 alcoholic drink (6 shots) per night before bed. Past Drug Use History: None Reported - Past Family History Mother Family Medical History: Cancer Additional Family Medical History / Comment(s): Mother from colon cancer. Sister(s) Family Medical History: Cancer Additional Family Medical History / Comment(s): Patient has one sister that from cancer but he does not know the type of cancer. Father Family Medical History: CVA/TIA Additional Family Medical History / Comment(s): Father from a cerebral hemorrhage. Daughter(s) Family Medical History: Cancer Additional Family Medical History / Comment(s): Patient has one daughter with cancer but does not know type. Brother(s) Family Medical History: Myocardial Infarction ([place]) Additional Family Medical History / Comment(s): Patient has 1 brother that from a myocardial infarction. Medications and Allergies Home Medications Medication Instructions Recorded Confirmed Type Aspirin 325 mg PO DAILY 06/06/15 05/05/18 History Atorvastatin Calcium [Lipitor] 40 mg PO DAILY 06/06/15 05/05/18 History Clopidogrel [Plavix] 75 mg PO QAM 06/06/15 05/05/18 History Enalapril [Vasotec] 10 mg PO BID 06/06/15 05/05/18 History amLODIPine [Norvasc] 10 mg PO QAM 06/06/15 05/05/18 History Insulin Detemir [Levemir Flextouch] 25 units SQ QAM 02/20/16 05/05/18 History Furosemide [Lasix] 40 mg PO BID 03/06/16 05/05/18 History Multivit-Mins/Iron/Folic/Lycop 1 tab PO DAILY 04/13/16 05/05/18 History [Centrum Men's Tablet] Nitroglycerin 0.4 mg SL DIRECTED PRN 04/12/17 05/05/18 History Metoprolol Tartrate [Lopressor] 25 mg PO BID 07/06/17 05/05/18 History metFORMIN HCL [Glucophage] 500 mg PO DAILY 07/06/17 05/05/18 History Isosorbide Mononitrate ER [Imdur] 30 mg PO DAILY #30 tab.er.24h 07/10/17 Rx Glimepiride [Amaryl] 1 mg PO DAILY 05/05/18 05/05/18 History Allergies Allergy/AdvReac Type Severity Reaction Status Date / Time Penicillins Allergy Itching Verified 05/05/18 21:36 Physical Exam Vitals: Vital Signs Temp Pulse Resp BP Pulse Ox 05/06/18 10:00 95 28 H 111/63 95 05/06/18 09:30 90 28 H 109/55 96 05/06/18 09:00 83 25 H 107/53 95 05/06/18 08:30 84 26 H 100/54 96 05/06/18 08:00 99.1 F 86 25 H 103/54 97 05/06/18 07:30 84 21 105/57 97 05/06/18 07:00 86 27 H 106/57 97 05/06/18 06:45 89 26 H 105/55 96 05/06/18 06:30 92 29 H 98/51 95 05/06/18 06:15 87 26 H 94/53 95 05/06/18 06:00 91 29 H 101/51 96 05/06/18 05:45 89 29 H 93/50 96 05/06/18 05:30 91 29 H 92/51 95 05/06/18 05:15 92 28 H 99/53 96 05/06/18 05:00 90 28 H 93/50 97 05/06/18 04:45 92 28 H 104/54 96 05/06/18 04:30 96 30 H 101/51 99 05/06/18 04:15 98 30 H 98/58 98 05/06/18 04:00 99.3 F 96 29 H 101/56 98 05/06/18 03:45 96 30 H 96/61 98 05/06/18 03:30 96 30 H 105/57 97 05/06/18 03:15 95 30 H 97/51 95 05/06/18 03:00 91 29 H 89/54 97 05/06/18 02:45 88 20 103/59 97 05/06/18 02:30 93 34 H 89/48 97 05/06/18 02:15 96.8 F L 87 26 H 91/53 97 05/06/18 02:00 89 28 H 91/57 97 05/06/18 01:45 88 29 H 89/51 96 05/06/18 01:30 86 27 H 85/40 96 05/06/18 01:15 89 27 H 89/44 96 05/06/18 01:00 93 28 H 98/63 95 05/06/18 00:40 95.3 F L 92 29 H 98/63 94 L 05/06/18 00:30 93 27 H 94 L 05/06/18 00:27 93 30 H 95 05/06/18 00:00 29 H 05/05/18 23:50 98.6 F 05/05/18 23:40 95.4 F L 96 28 H 126/85 94 L 05/05/18 23:30 93 16 113/66 95 05/05/18 23:20 102 H 30 H 113/66 96 05/05/18 23:10 99 29 H 117/61 95 05/05/18 22:50 101 H 30 H 103/56 97 05/05/18 22:40 98 18 104/59 98 05/05/18 22:30 104 H 18 106/61 99 05/05/18 22:20 97 17 106/61 100 05/05/18 21:50 106 H 17 101/52 100 05/05/18 21:40 101 H 17 110/52 97 05/05/18 21:30 106 H 17 110/66 98 05/05/18 21:20 104 H 17 110/66 98 05/05/18 21:10 101 H 26 H 115/56 98 05/05/18 20:50 105 H 17 117/51 98 05/05/18 20:40 112 H 16 110/57 95 05/05/18 20:30 107 H 16 122/58 95 05/05/18 19:50 106 H 18 118/58 94 L 05/05/18 19:44 93 L 05/05/18 18:22 77 18 185/91 96 Intake and Output 05/05/18 05/06/18 05/06/18 22:59 06:59 14:59 Intake Total 4.133 1527.674 601.643 Output Total 75 10 Balance 4.133 1452.674 591.643 Intake: IV 1375 475 Magnesium Sulfate-D5w Pmx 100 1 gm In Dextrose/Water 1 100ml.bag @ 100 mls/hr IVPB Q1H [facility] Rx#: [id number] Sodium Chloride 0.9% 1, 1375 375 000 ml @ 125 mls/hr IV . Q8H [facility] Rx#:[id number] Intake, IV Titration 4.133 152.674 126.643 Amount Norepinephrine 4 mg In 4.625 53.875 Sodium Chloride 0.9% 250 ml @ Titrate IV .Q0M [facility] Rx#:[id number] Propofol 1,000 mg In 4.133 148.049 72.768 Empty Bag 1 bag @ Titrate IV .Q0M [facility] Rx#: [id number] Output: Urine 75 10 Other: Voiding Method Indwelling Catheter Weight 119 kg 119 kg Physical Exam: Revealed a 77-year-old white male, obese, on mechanical ventilation, agitated, in no distress. Head: Evidence of a small left temporal superficial abrasion, otherwise atraumatic, normocephalic. HEENT:[Neck is supple.] [No neck masses.] [No thyromegaly.] [No JVD.] Endotracheal tube is intact. Pupils are both sluggishly reactive to light. Chest: [Crackles and rhonchi noted bilaterally. Symmetrical chest expansion noted..] Cardiac Exam: [Normal S1 and S2, no S3 gallop, 2/6 systolic murmur thought the precordium. Abdomen: [Obese, Soft, nontender, no megaly, no rebound, no guarding, normal bowel sounds.] Extremities: [No clubbing, no edema, no cyanosis.] Neurological Exam: Opens eyes only to deep painful stimuli, pupils are sluggishly reactive to light, does not follow any instructions. Lymphatic: No lymphadenopathy. Skin: No rashes. Small abrasion was noted on the right temporal area. Results - Laboratory Findings CBC and BMP: 05/06/18 04:25 05/06/18 04:25 ABG ABG pH 7.45 (7.35-7.45) 05/06/18 07:56 ABG pCO2 34 mmHg (35-45) L 05/06/18 07:56 ABG pO2 90 mmHg (83-108) 05/06/18 07:56 ABG O2 Saturation 98.0 % (94-97) H 05/06/18 07:56 PT/INR, D-dimer PT 10.6 sec (9.0-12.0) 05/05/18 18:26 INR 1.0 (<1.2) 05/05/18 18:26 D-Dimer 20.14 mg/L FEU (<0.60) H 05/05/18 18:26 Abnormal lab findings: Abnormal Labs 05/05/18 05/05/18 05/05/18 18:26 18:26 18:26 WBC 15.5 H RBC 3.60 L Hgb 12.3 L Hct 37.8 L MCV 105.1 H Plt Count Neutrophils # Neutrophils # (Manual) 10.00 H Lymphocytes # Lymphocytes # (Manual) 5.12 H D-Dimer ABG pH ABG pCO2 ABG pO2 ABG HCO3 ABG Total CO2 ABG O2 Saturation VBG pH 7.09 L* VBG pCO2 73 H* VBG HCO3 21 L Chloride Carbon Dioxide BUN Creatinine Glucose POC Glucose (mg/dL) Plasma Lactic Acid Winston Magnesium Total Bilirubin AST ALT CK-MB (CK-2) 3.6 H Troponin I 0.094 H* Total Protein Albumin Urine Protein Urine Glucose (UA) Urine Blood Ur Leukocyte Esterase Urine RBC Urine WBC Clumps Urine Bacteria Hyaline Casts Urine Yeast (Budding) 05/05/18 05/05/18 05/05/18 18:26 18:26 18:26 WBC RBC Hgb Hct MCV Plt Count Neutrophils # Neutrophils # (Manual) Lymphocytes # Lymphocytes # (Manual) D-Dimer 20.14 H ABG pH ABG pCO2 ABG pO2 ABG HCO3 ABG Total CO2 ABG O2 Saturation VBG pH VBG pCO2 VBG HCO3 Chloride Carbon Dioxide 21 L BUN 23 H Creatinine 1.71 H Glucose 385 H POC Glucose (mg/dL) Plasma Lactic Acid Winston 10.6 H* Magnesium 2.5 H Total Bilirubin 1.4 H AST 188 H ALT 101 H CK-MB (CK-2) Troponin I Total Protein 5.9 L Albumin 3.4 L Urine Protein Urine Glucose (UA) Urine Blood Ur Leukocyte Esterase Urine RBC Urine WBC Clumps Urine Bacteria Hyaline Casts Urine Yeast (Budding) 05/05/18 05/05/18 05/06/18 18:50 22:03 00:06 WBC RBC Hgb Hct MCV Plt Count Neutrophils # Neutrophils # (Manual) Lymphocytes # Lymphocytes # (Manual) D-Dimer ABG pH 7.24 L 7.33 L ABG pCO2 ABG pO2 129 H 136 H ABG HCO3 18 L 20 L ABG Total CO2 ABG O2 Saturation 98.9 H 99.3 H VBG pH VBG pCO2 VBG HCO3 Chloride Carbon Dioxide BUN Creatinine Glucose POC Glucose (mg/dL) 391 H Plasma Lactic Acid Winston Magnesium Total Bilirubin AST ALT CK-MB (CK-2) Troponin I Total Protein Albumin Urine Protein Urine Glucose (UA) Urine Blood Ur Leukocyte Esterase Urine RBC Urine WBC Clumps Urine Bacteria Hyaline Casts Urine Yeast (Budding) 05/06/18 05/06/18 05/06/18 02:16 04:25 04:25 WBC 14.4 H RBC 3.15 L Hgb 10.8 L Hct 32.2 L MCV 101.9 H Plt Count 148 L Neutrophils # 13.2 H Neutrophils # (Manual) Lymphocytes # 0.4 L Lymphocytes # (Manual) D-Dimer ABG pH ABG pCO2 ABG pO2 ABG HCO3 ABG Total CO2 ABG O2 Saturation VBG pH VBG pCO2 VBG HCO3 Chloride 109 H Carbon Dioxide BUN 30 H Creatinine 1.91 H Glucose 274 H POC Glucose (mg/dL) 345 H Plasma Lactic Acid Winston Magnesium Total Bilirubin AST ALT CK-MB (CK-2) Troponin I Total Protein Albumin Urine Protein Urine Glucose (UA) Urine Blood Ur Leukocyte Esterase Urine RBC Urine WBC Clumps Urine Bacteria Hyaline Casts Urine Yeast (Budding) 05/06/18 05/06/18 05/06/18 04:50 06:46 07:56 WBC RBC Hgb Hct MCV Plt Count Neutrophils # Neutrophils # (Manual) Lymphocytes # Lymphocytes # (Manual) D-Dimer ABG pH ABG pCO2 34 L ABG pO2 ABG HCO3 ABG Total CO2 25 H ABG O2 Saturation 98.0 H VBG pH VBG pCO2 VBG HCO3 Chloride Carbon Dioxide BUN Creatinine Glucose POC Glucose (mg/dL) Plasma Lactic Acid Winston 3.3 H* Magnesium Total Bilirubin AST ALT CK-MB (CK-2) Troponin I Total Protein Albumin Urine Protein 2+ H Urine Glucose (UA) 2+ H Urine Blood Large H Ur Leukocyte Esterase Small H Urine RBC >182 H Urine WBC Clumps Many H Urine Bacteria Moderate H Hyaline Casts 8 H Urine Yeast (Budding) Many H 05/06/18 08:54 WBC RBC Hgb Hct MCV Plt Count Neutrophils # Neutrophils # (Manual) Lymphocytes # Lymphocytes # (Manual) D-Dimer ABG pH ABG pCO2 ABG pO2 ABG HCO3 ABG Total CO2 ABG O2 Saturation VBG pH VBG pCO2 VBG HCO3 Chloride Carbon Dioxide BUN Creatinine Glucose POC Glucose (mg/dL) 207 H Plasma Lactic Acid Winston Magnesium Total Bilirubin AST ALT CK-MB (CK-2) Troponin I Total Protein Albumin Urine Protein Urine Glucose (UA) Urine Blood Ur Leukocyte Esterase Urine RBC Urine WBC Clumps Urine Bacteria Hyaline Casts Urine Yeast (Budding) - Diagnostic Findings Chest x-ray: image reviewed (Chest x-ray showed postsurgical changes, stable interstitial changes and small right pleural effusion with basilar atelectasis.) Additional studies: CT of the brain was reviewed and as noted. Radiology. No evidence of active disease. Assessment and Plan Assessment: Impression: 1 cardiac arrest most likely secondary to acute myocardial infarction 2 strongly suspect anoxic brain injury 3 acute on chronic kidney injury secondary to hypotension and cardiac arrest. Patient didn't require placement on norepinephrine last night for low blood pressure. 4 history of multiple comorbidities including recent non-ST elevation myocardial infarction, previous CABG, hypertension, type 2 diabetes, morbid obesity, chronic kidney disease stage III Recommendation: Agree with the family members to proceed with comfort care measures, I tried to convince them to delay the comfort care measures until we have neurological evaluation, however they all insisted on comfort care measures because he never wanted to be on life support in the first place. We' ll proceed with comfort care and terminal weaning. Patient will likely pass with these comfort and dignity. Time with Patient: Greater than 30
[2018-05-06] MEDS ORDERED: INSULIN ASPART 100 UNIT/ML 1 ML 10 ML VIAL SQ SCH (12:00)
[2018-05-06] MEDS ORDERED: SCOPOLAMINE 1.5MG/72HR PATCH TRANSDERM STA (13:14)
--- NOTE | 2018-05-06 13:23 | P.HPIM ---
History of Present Illness H&P Date: 05/06/18 Chief Complaint: Cardiac arrest This is a 76-year-old male with a history of coronary artery disease, chronic obstructive pulmonary disease, left main disease And Previous Cardiac Catheterization and Be Medically Managed by Dr. Ramos at That Time. Patient Had a Sudden Cardiac Arrest Yesterday That Was Witnessed at the [facility]. Patient Fell off His Chair and CPR Was Initiated by Bystanders. EMS Arrived to the Scene Approximate 5-10 Minutes Later, Patient Was Noted to be in ventricular fibrillation and was shocked twice. He was given epinephrine 2 and was noted to have a palpable pulse and in sinus rhythm. Patient was brought to the emergency room already intubated with no CPR in progress at that time. However upon arrival to the ER shortly after the patient was there he was in pulseless electrical activity arrest. CPR was initiated again and there was spontaneous recovery of pulse and blood pressure. Patient subsequently was admitted to the ICU. At this time patient has been placed into comfort care and has been extubated per the patient and family's wishes. Review of Systems ROS unobtainable: due to mental status Past Medical History Past Medical History: Coronary Artery Disease (CAD), Cancer, Heart Failure, Diabetes Mellitus, Hyperlipidemia, Hypertension, Myocardial Infarction (ME), Osteoarthritis (OA), Skin Disorder, Vascular Disorder Additional Past Medical History / Comment(s): Heart Murmur, LT Leg EDEMA, PAIN (HX VEIN HARVESTING). 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 Roshni Knee Replacements. EXC Roshni Cataract. DOUBLE CABG. AORTIC HEART VALVE REPLACEMENT, AND PACEMAKER 2016. ABD Aortogram W/ RUNOFF. PTBA ROSHNI W/ STENTS X5, skin CA on nose removed Past Anesthesia/Blood Transfusion Reactions: No Reported Reaction Date of Last Stent Placement:: 2015 Type of Cardiac Device: Permanent Pacemaker Device Placement Date:: 2015 Past Psychological History: No Psychological Hx Reported Smoking Status: Former smoker Past Alcohol Use History: Occasional Additional Past Alcohol Use History / Comment(s): Started smoking age 8, quit smoking 1997, SMOKED 2 PPD. Patient has 1 alcoholic drink (6 shots) per night before bed. Past Drug Use History: None Reported - Past Family History Mother Family Medical History: Cancer Additional Family Medical History / Comment(s): Mother from colon cancer. Sister(s) Family Medical History: Cancer Additional Family Medical History / Comment(s): Patient has one sister that from cancer but he does not know the type of cancer. Father Family Medical History: CVA/TIA Additional Family Medical History / Comment(s): Father from a cerebral hemorrhage. Daughter(s) Family Medical History: Cancer Additional Family Medical History / Comment(s): Patient has one daughter with cancer but does not know type. Brother(s) Family Medical History: Myocardial Infarction (ME) Additional Family Medical History / Comment(s): Patient has 1 brother that from a myocardial infarction. Medications and Allergies Home Medications Medication Instructions Recorded Confirmed Type Aspirin 325 mg PO DAILY 06/06/15 05/05/18 History Atorvastatin Calcium [Lipitor] 40 mg PO DAILY 06/06/15 05/05/18 History Clopidogrel [Plavix] 75 mg PO QAM 06/06/15 05/05/18 History Enalapril [Vasotec] 10 mg PO BID 06/06/15 05/05/18 History amLODIPine [Norvasc] 10 mg PO QAM 06/06/15 05/05/18 History Insulin Detemir [Levemir Flextouch] 25 units SQ QAM 02/20/16 05/05/18 History Furosemide [Lasix] 40 mg PO BID 03/06/16 05/05/18 History Multivit-Mins/Iron/Folic/Lycop 1 tab PO DAILY 04/13/16 05/05/18 History [Centrum Men's Tablet] Nitroglycerin 0.4 mg SL DIRECTED PRN 04/12/17 05/05/18 History Metoprolol Tartrate [Lopressor] 25 mg PO BID 07/06/17 05/05/18 History metFORMIN HCL [Glucophage] 500 mg PO DAILY 07/06/17 05/05/18 History Isosorbide Mononitrate ER [Imdur] 30 mg PO DAILY #30 tab.er.24h 07/10/17 Rx Glimepiride [Amaryl] 1 mg PO DAILY 05/05/18 05/05/18 History Allergies Allergy/AdvReac Type Severity Reaction Status Date / Time Penicillins Allergy Itching Verified 05/05/18 21:36 Physical Exam Vitals: Vital Signs Temp Pulse Resp BP Pulse Ox 05/06/18 10:00 95 28 H 111/63 95 05/06/18 09:30 90 28 H 109/55 96 05/06/18 09:00 83 25 H 107/53 95 05/06/18 08:30 84 26 H 100/54 96 05/06/18 08:00 99.1 F 86 25 H 103/54 97 05/06/18 07:30 84 21 105/57 97 05/06/18 07:00 86 27 H 106/57 97 05/06/18 06:45 89 26 H 105/55 96 05/06/18 06:30 92 29 H 98/51 95 05/06/18 06:15 87 26 H 94/53 95 05/06/18 06:00 91 29 H 101/51 96 05/06/18 05:45 89 29 H 93/50 96 05/06/18 05:30 91 29 H 92/51 95 05/06/18 05:15 92 28 H 99/53 96 05/06/18 05:00 90 28 H 93/50 97 05/06/18 04:45 92 28 H 104/54 96 05/06/18 04:30 96 30 H 101/51 99 05/06/18 04:15 98 30 H 98/58 98 05/06/18 04:00 99.3 F 96 29 H 101/56 98 05/06/18 03:45 96 30 H 96/61 98 05/06/18 03:30 96 30 H 105/57 97 05/06/18 03:15 95 30 H 97/51 95 05/06/18 03:00 91 29 H 89/54 97 05/06/18 02:45 88 20 103/59 97 05/06/18 02:30 93 34 H 89/48 97 05/06/18 02:15 96.8 F L 87 26 H 91/53 97 05/06/18 02:00 89 28 H 91/57 97 05/06/18 01:45 88 29 H 89/51 96 05/06/18 01:30 86 27 H 85/40 96 05/06/18 01:15 89 27 H 89/44 96 05/06/18 01:00 93 28 H 98/63 95 05/06/18 00:40 95.3 F L 92 29 H 98/63 94 L 05/06/18 00:30 93 27 H 94 L 05/06/18 00:27 93 30 H 95 05/06/18 00:00 29 H 05/05/18 23:50 98.6 F 05/05/18 23:40 95.4 F L 96 28 H 126/85 94 L 05/05/18 23:30 93 16 113/66 95 05/05/18 23:20 102 H 30 H 113/66 96 05/05/18 23:10 99 29 H 117/61 95 05/05/18 22:50 101 H 30 H 103/56 97 05/05/18 22:40 98 18 104/59 98 05/05/18 22:30 104 H 18 106/61 99 05/05/18 22:20 97 17 106/61 100 05/05/18 21:50 106 H 17 101/52 100 05/05/18 21:40 101 H 17 110/52 97 05/05/18 21:30 106 H 17 110/66 98 05/05/18 21:20 104 H 17 110/66 98 05/05/18 21:10 101 H 26 H 115/56 98 05/05/18 20:50 105 H 17 117/51 98 05/05/18 20:40 112 H 16 110/57 95 05/05/18 20:30 107 H 16 122/58 95 05/05/18 19:50 106 H 18 118/58 94 L 05/05/18 19:44 93 L 05/05/18 18:22 77 18 185/91 96 Intake and Output 05/05/18 05/06/18 05/06/18 22:59 06:59 14:59 Intake Total 4.133 1527.674 605.451 Output Total 75 10 Balance 4.133 1452.674 595.451 Intake: IV 1375 475 Magnesium Sulfate-D5w Pmx 100 1 gm In Dextrose/Water 1 100ml.bag @ 100 mls/hr IVPB Q1H [facility] Rx#: [id number] Sodium Chloride 0.9% 1, 1375 375 000 ml @ 125 mls/hr IV . Q8H [facility] Rx#:[id number] Intake, IV Titration 4.133 152.674 130.451 Amount Morphine Sulfate (100 mg/ 3.808 2 ml) 100 mg In Sodium Chloride 0.9% 100 ml @ 4 MG/HR 4.08 mls/hr IV . Q24H [facility] Rx#:[id number] Norepinephrine 4 mg In 4.625 53.875 Sodium Chloride 0.9% 250 ml @ Titrate IV .Q0M [facility] Rx#:[id number] Propofol 1,000 mg In 4.133 148.049 72.768 Empty Bag 1 bag @ Titrate IV .Q0M [facility] Rx#: [id number] Output: Urine 75 10 Other: Voiding Method Indwelling Catheter Weight 119 kg 119 kg Gen: 77-year-old male in no acute distress HEENT: Head is atraumatic, normocephalic. Sclerae is anicteric. NECK: Supple. No JVD. No lymphadenopathy. No thyromegaly. LUNGS: Wheezing noted HEART: Regular rate and rhythm. No murmur. ABDOMEN: Soft. Bowel sounds are present. No masses. No tenderness. EXTREMITIES: No pedal edema. No calf tenderness. NEUROLOGICAL: Patient unresponsive and only responds to deep painful stimuli. Results CBC & Chem 7: 05/06/18 04:25 05/06/18 04:25 Labs: Abnormal Lab Results - Last 24 Hours (Table) 05/05/18 05/05/18 05/05/18 Range/Units 18:26 18:26 18:26 WBC 15.5 H (3.8-10.6) k/uL RBC 3.60 L (4.30-5.90) m/uL Hgb 12.3 L (13.0-17.5) gm/dL Hct 37.8 L (39.0-53.0) % MCV 105.1 H (80.0-100.0) fL Plt Count (150-450) k/uL Neutrophils # (1.3-7.7) k/uL Neutrophils # (Manual) 10.00 H (1.3-7.7) k/uL Lymphocytes # (1.0-4.8) k/uL Lymphocytes # (Manual) 5.12 H (1.0-4.8) k/uL D-Dimer (<0.60) mg/L FEU ABG pH (7.35-7.45) ABG pCO2 (35-45) mmHg ABG pO2 (83-108) mmHg ABG HCO3 (21-25) mmol/L ABG Total CO2 (19-24) mmol/L ABG O2 Saturation (94-97) % VBG pH 7.09 L* (7.31-7.41) VBG pCO2 73 H* (37-51) mmHg VBG HCO3 21 L (24-28) mmol/L Chloride (98-107) mmol/L Carbon Dioxide (22-30) mmol/L BUN (9-20) mg/dL Creatinine (0.66-1.25) mg/dL Glucose (74-99) mg/dL POC Glucose (mg/dL) (75-99) mg/dL Plasma Lactic Acid Winston (0.7-2.0) mmol/L Magnesium (1.6-2.3) mg/dL Total Bilirubin (0.2-1.3) mg/dL AST (17-59) U/L ALT (21-72) U/L CK-MB (CK-2) 3.6 H (0.0-2.4) ng/mL Troponin I 0.094 H* (0.000-0.034) ng/mL Total Protein (6.3-8.2) g/dL Albumin (3.5-5.0) g/dL Urine Protein (Negative) Urine Glucose (UA) (Negative) Urine Blood (Negative) Ur Leukocyte Esterase (Negative) Urine RBC (0-5) /hpf Urine WBC Clumps (None) /hpf Urine Bacteria (None) /hpf Hyaline Casts (0-2) /lpf Urine Yeast (Budding) (None) /hpf 05/05/18 05/05/18 05/05/18 Range/Units 18:26 18:26 18:26 WBC (3.8-10.6) k/uL RBC (4.30-5.90) m/uL Hgb (13.0-17.5) gm/dL Hct (39.0-53.0) % MCV (80.0-100.0) fL Plt Count (150-450) k/uL Neutrophils # (1.3-7.7) k/uL Neutrophils # (Manual) (1.3-7.7) k/uL Lymphocytes # (1.0-4.8) k/uL Lymphocytes # (Manual) (1.0-4.8) k/uL D-Dimer 20.14 H (<0.60) mg/L FEU ABG pH (7.35-7.45) ABG pCO2 (35-45) mmHg ABG pO2 (83-108) mmHg ABG HCO3 (21-25) mmol/L ABG Total CO2 (19-24) mmol/L ABG O2 Saturation (94-97) % VBG pH (7.31-7.41) VBG pCO2 (37-51) mmHg VBG HCO3 (24-28) mmol/L Chloride (98-107) mmol/L Carbon Dioxide 21 L (22-30) mmol/L BUN 23 H (9-20) mg/dL Creatinine 1.71 H (0.66-1.25) mg/dL Glucose 385 H (74-99) mg/dL POC Glucose (mg/dL) (75-99) mg/dL Plasma Lactic Acid Winston 10.6 H* (0.7-2.0) mmol/L Magnesium 2.5 H (1.6-2.3) mg/dL Total Bilirubin 1.4 H (0.2-1.3) mg/dL AST 188 H (17-59) U/L ALT 101 H (21-72) U/L CK-MB (CK-2) (0.0-2.4) ng/mL Troponin I (0.000-0.034) ng/mL Total Protein 5.9 L (6.3-8.2) g/dL Albumin 3.4 L (3.5-5.0) g/dL Urine Protein (Negative) Urine Glucose (UA) (Negative) Urine Blood (Negative) Ur Leukocyte Esterase (Negative) Urine RBC (0-5) /hpf Urine WBC Clumps (None) /hpf Urine Bacteria (None) /hpf Hyaline Casts (0-2) /lpf Urine Yeast (Budding) (None) /hpf 05/05/18 05/05/18 05/06/18 Range/Units 18:50 22:03 00:06 WBC (3.8-10.6) k/uL RBC (4.30-5.90) m/uL Hgb (13.0-17.5) gm/dL Hct (39.0-53.0) % MCV (80.0-100.0) fL Plt Count (150-450) k/uL Neutrophils # (1.3-7.7) k/uL Neutrophils # (Manual) (1.3-7.7) k/uL Lymphocytes # (1.0-4.8) k/uL Lymphocytes # (Manual) (1.0-4.8) k/uL D-Dimer (<0.60) mg/L FEU ABG pH 7.24 L 7.33 L (7.35-7.45) ABG pCO2 (35-45) mmHg ABG pO2 129 H 136 H (83-108) mmHg ABG HCO3 18 L 20 L (21-25) mmol/L ABG Total CO2 (19-24) mmol/L ABG O2 Saturation 98.9 H 99.3 H (94-97) % VBG pH (7.31-7.41) VBG pCO2 (37-51) mmHg VBG HCO3 (24-28) mmol/L Chloride (98-107) mmol/L Carbon Dioxide (22-30) mmol/L BUN (9-20) mg/dL Creatinine (0.66-1.25) mg/dL Glucose (74-99) mg/dL POC Glucose (mg/dL) 391 H (75-99) mg/dL Plasma Lactic Acid Winston (0.7-2.0) mmol/L Magnesium (1.6-2.3) mg/dL Total Bilirubin (0.2-1.3) mg/dL AST (17-59) U/L ALT (21-72) U/L CK-MB (CK-2) (0.0-2.4) ng/mL Troponin I (0.000-0.034) ng/mL Total Protein (6.3-8.2) g/dL Albumin (3.5-5.0) g/dL Urine Protein (Negative) Urine Glucose (UA) (Negative) Urine Blood (Negative) Ur Leukocyte Esterase (Negative) Urine RBC (0-5) /hpf Urine WBC Clumps (None) /hpf Urine Bacteria (None) /hpf Hyaline Casts (0-2) /lpf Urine Yeast (Budding) (None) /hpf 05/06/18 05/06/1805/06/19 Range/Units 02:16 04:25 04:25 WBC 14.4 H (3.8-10.6) k/uL RBC 3.15 L (4.30-5.90) m/uL Hgb 10.8 L (13.0-17.5) gm/dL Hct 32.2 L (39.0-53.0) % MCV 101.9 H (80.0-100.0) fL Plt Count 148 L (150-450) k/uL Neutrophils # 13.2 H (1.3-7.7) k/uL Neutrophils # (Manual) (1.3-7.7) k/uL Lymphocytes # 0.4 L (1.0-4.8) k/uL Lymphocytes # (Manual) (1.0-4.8) k/uL D-Dimer (<0.60) mg/L FEU ABG pH (7.35-7.45) ABG pCO2 (35-45) mmHg ABG pO2 (83-108) mmHg ABG HCO3 (21-25) mmol/L ABG Total CO2 (19-24) mmol/L ABG O2 Saturation (94-97) % VBG pH (7.31-7.41) VBG pCO2 (37-51) mmHg VBG HCO3 (24-28) mmol/L Chloride 109 H (98-107) mmol/L Carbon Dioxide (22-30) mmol/L BUN 30 H (9-20) mg/dL Creatinine 1.91 H (0.66-1.25) mg/dL Glucose 274 H (74-99) mg/dL POC Glucose (mg/dL) 345 H (75-99) mg/dL Plasma Lactic Acid Winston (0.7-2.0) mmol/L Magnesium (1.6-2.3) mg/dL Total Bilirubin (0.2-1.3) mg/dL AST (17-59) U/L ALT (21-72) U/L CK-MB (CK-2) (0.0-2.4) ng/mL Troponin I (0.000-0.034) ng/mL Total Protein (6.3-8.2) g/dL Albumin (3.5-5.0) g/dL Urine Protein (Negative) Urine Glucose (UA) (Negative) Urine Blood (Negative) Ur Leukocyte Esterase (Negative) Urine RBC (0-5) /hpf Urine WBC Clumps (None) /hpf Urine Bacteria (None) /hpf Hyaline Casts (0-2) /lpf Urine Yeast (Budding) (None) /hpf 05/06/18 05/06/18 05/06/18 Range/Units 04:50 06:46 07:56 WBC (3.8-10.6) k/uL RBC (4.30-5.90) m/uL Hgb (13.0-17.5) gm/dL Hct (39.0-53.0) % MCV (80.0-100.0) fL Plt Count (150-450) k/uL Neutrophils # (1.3-7.7) k/uL Neutrophils # (Manual) (1.3-7.7) k/uL Lymphocytes # (1.0-4.8) k/uL Lymphocytes # (Manual) (1.0-4.8) k/uL D-Dimer (<0.60) mg/L FEU ABG pH (7.35-7.45) ABG pCO2 34 L (35-45) mmHg ABG pO2 (83-108) mmHg ABG HCO3 (21-25) mmol/L ABG Total CO2 25 H (19-24) mmol/L ABG O2 Saturation 98.0 H (94-97) % VBG pH (7.31-7.41) VBG pCO2 (37-51) mmHg VBG HCO3 (24-28) mmol/L Chloride (98-107) mmol/L Carbon Dioxide (22-30) mmol/L BUN (9-20) mg/dL Creatinine (0.66-1.25) mg/dL Glucose (74-99) mg/dL POC Glucose (mg/dL) (75-99) mg/dL Plasma Lactic Acid Winston 3.3 H* (0.7-2.0) mmol/L Magnesium (1.6-2.3) mg/dL Total Bilirubin (0.2-1.3) mg/dL AST (17-59) U/L ALT (21-72) U/L CK-MB (CK-2) (0.0-2.4) ng/mL Troponin I (0.000-0.034) ng/mL Total Protein (6.3-8.2) g/dL Albumin (3.5-5.0) g/dL Urine Protein 2+ H (Negative) Urine Glucose (UA) 2+ H (Negative) Urine Blood Large H (Negative) Ur Leukocyte Esterase Small H (Negative) Urine RBC >182 H (0-5) /hpf Urine WBC Clumps Many H (None) /hpf Urine Bacteria Moderate H (None) /hpf Hyaline Casts 8 H (0-2) /lpf Urine Yeast (Budding) Many H (None) /hpf 05/06/18 Range/Units 08:54 WBC (3.8-10.6) k/uL RBC (4.30-5.90) m/uL Hgb (13.0-17.5) gm/dL Hct (39.0-53.0) % MCV (80.0-100.0) fL Plt Count (150-450) k/uL Neutrophils # (1.3-7.7) k/uL Neutrophils # (Manual) (1.3-7.7) k/uL Lymphocytes # (1.0-4.8) k/uL Lymphocytes # (Manual) (1.0-4.8) k/uL D-Dimer (<0.60) mg/L FEU ABG pH (7.35-7.45) ABG pCO2 (35-45) mmHg ABG pO2 (83-108) mmHg ABG HCO3 (21-25) mmol/L ABG Total CO2 (19-24) mmol/L ABG O2 Saturation (94-97) % VBG pH (7.31-7.41) VBG pCO2 (37-51) mmHg VBG HCO3 (24-28) mmol/L Chloride (98-107) mmol/L Carbon Dioxide (22-30) mmol/L BUN (9-20) mg/dL Creatinine (0.66-1.25) mg/dL Glucose (74-99) mg/dL POC Glucose (mg/dL) 207 H (75-99) mg/dL Plasma Lactic Acid Winston (0.7-2.0) mmol/L Magnesium (1.6-2.3) mg/dL Total Bilirubin (0.2-1.3) mg/dL AST (17-59) U/L ALT (21-72) U/L CK-MB (CK-2) (0.0-2.4) ng/mL Troponin I (0.000-0.034) ng/mL Total Protein (6.3-8.2) g/dL Albumin (3.5-5.0) g/dL Urine Protein (Negative) Urine Glucose (UA) (Negative) Urine Blood (Negative) Ur Leukocyte Esterase (Negative) Urine RBC (0-5) /hpf Urine WBC Clumps (None) /hpf Urine Bacteria (None) /hpf Hyaline Casts (0-2) /lpf Urine Yeast (Budding) (None) /hpf Thrombosis Risk Factor Assmnt - Choose All That Apply Each Factor Represents 1 point: Medical pt on bed rest, Obesity (BMI >25) Other Risk Factors: Yes Each Risk Factor Represents 3 Points: Age 75 years or older Thrombosis Risk Factor Assessment Total Risk Factor Score: 5 Thrombosis Risk Factor Assessment Level: High Risk Assessment and Plan Plan: #1 cardiac arrest most likely secondary to acute myocardial infarction. Comfort measures in place. #2 anoxic brain injury. See above #3 acute chronic kidney injury secondary to hypertension and cardiac arrest. #4 coronary artery disease with previous CABG and recent non-ST elevated myocardial infarction that was medically managed #5 diabetes #6 chronic kidney disease stage III Comfort measures are in place. Impression and plan of care have been directed as dictated by the signing physician. Hyacinth Garcia nurse practitioner acting as scribe for signing physician.
[2018-05-06 16:16] VITALS: BP 88/46; PULSE 60; RESP 0
--- NOTE | 2018-05-06 17:00 | P.CNNES ---
History of Present Illness Consult date: 05/06/18 Reason for Consult: Patient with cardiac arrest and anoxic brain injury. History of Present Illness: This patient is 77-year-old male who suffered a witnessed cardiac arrest. Patient transferred to the intensive care unit. ICU nursing staff informed Dr. Pierre Calderon this morning that the patient family is requesting comfort care measures. Neurology consultation was canceled as per ICU nursing staff and Dr. Li. Family wishes only comfort care measures and the patient will be extubated per family wishes. Neurology consultation was canceled. Past Medical History Past Medical History: Coronary Artery Disease (CAD), Cancer, Heart Failure, Diabetes Mellitus, Hyperlipidemia, Hypertension, Myocardial Infarction (CA), Osteoarthritis (OA), Skin Disorder, Vascular Disorder Additional Past Medical History / Comment(s): Heart Murmur, LT Leg EDEMA, PAIN (HX VEIN HARVESTING). 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 Roshni Knee Replacements. EXC Roshni Cataract. DOUBLE CABG. AORTIC HEART VALVE REPLACEMENT, AND PACEMAKER 2015. ABD Aortogram W/ RUNOFF. PTBA ROSHNI W/ STENTS X5, skin CA on nose removed Past Anesthesia/Blood Transfusion Reactions: No Reported Reaction Date of Last Stent Placement:: 2015 Type of Cardiac Device: Permanent Pacemaker Device Placement Date:: 2015 Past Psychological History: No Psychological Hx Reported Smoking Status: Former smoker Past Alcohol Use History: Occasional Additional Past Alcohol Use History / Comment(s): Started smoking age 8, quit smoking 1997, SMOKED 2 PPD. Patient has 1 alcoholic drink (6 shots) per night before bed. Past Drug Use History: None Reported - Past Family History Mother Family Medical History: Cancer Additional Family Medical History / Comment(s): Mother from colon cancer. Sister(s) Family Medical History: Cancer Additional Family Medical History / Comment(s): Patient has one sister that from cancer but he does not know the type of cancer. Father Family Medical History: CVA/TIA Additional Family Medical History / Comment(s): Father from a cerebral hemorrhage. Daughter(s) Family Medical History: Cancer Additional Family Medical History / Comment(s): Patient has one daughter with cancer but does not know type. Brother(s) Family Medical History: Myocardial Infarction (CA) Additional Family Medical History / Comment(s): Patient has 1 brother that from a myocardial infarction. Medications and Allergies Home Medications Medication Instructions Recorded Confirmed Type Aspirin 325 mg PO DAILY 06/06/15 05/05/18 History Atorvastatin Calcium [Lipitor] 40 mg PO DAILY 06/06/15 05/05/18 History Clopidogrel [Plavix] 75 mg PO QAM 06/06/15 05/05/18 History Enalapril [Vasotec] 10 mg PO BID 06/06/15 05/05/18 History amLODIPine [Norvasc] 10 mg PO QAM 06/06/15 05/05/18 History Insulin Detemir [Levemir Flextouch] 25 units SQ QAM 02/20/16 05/05/18 History Furosemide [Lasix] 40 mg PO BID 03/06/16 05/05/18 History Multivit-Mins/Iron/Folic/Lycop 1 tab PO DAILY 04/13/16 05/05/18 History [Centrum Men's Tablet] Nitroglycerin 0.4 mg SL DIRECTED PRN 04/12/17 05/05/18 History Metoprolol Tartrate [Lopressor] 25 mg PO BID 07/06/17 05/05/18 History metFORMIN HCL [Glucophage] 500 mg PO DAILY 07/06/17 05/05/18 History Isosorbide Mononitrate ER [Imdur] 30 mg PO DAILY #30 tab.er.24h 07/10/17 Rx Glimepiride [Amaryl] 1 mg PO DAILY 05/05/18 05/05/18 History Allergies Allergy/AdvReac Type Severity Reaction Status Date / Time Penicillins Allergy Itching Verified 05/05/18 21:36 Physical Examination - Vital Signs Vital Signs: Vital Signs Temp Pulse Resp BP Pulse Ox 05/06/18 16:00 60 0 L 62 L 05/06/18 15:30 100 3 L 88/46 58 L 05/06/18 15:00 100 2 L 99/54 79 L 05/06/18 14:30 97 5 L 99/54 81 L 05/06/18 14:00 93 13 75 L 05/06/18 13:30 92 19 109/65 71 L 05/06/18 13:00 98 35 H 90/46 76 L 05/06/18 12:30 89 26 H 90/46 79 L 05/06/18 12:20 26 H 05/06/18 12:00 88 24 103/57 05/06/18 11:30 85 24 103/57 95 05/06/18 11:00 90 27 H 125/59 90 L 05/06/18 10:30 86 25 H 125/59 95 05/06/18 10:00 95 28 H 111/63 95 05/06/18 09:30 90 28 H 109/55 96 05/06/18 09:00 83 25 H 107/53 95 05/06/18 08:30 84 26 H 100/54 96 05/06/18 08:00 99.1 F 86 25 H 103/54 97 05/06/18 07:30 84 21 105/57 97 05/06/18 07:00 86 27 H 106/57 97 05/06/18 06:45 89 26 H 105/55 96 05/06/18 06:30 92 29 H 98/51 95 05/06/18 06:15 87 26 H 94/53 95 05/06/18 06:00 91 29 H 101/51 96 05/06/18 05:45 89 29 H 93/50 96 05/06/18 05:30 91 29 H 92/51 95 05/06/18 05:15 92 28 H 99/53 96 05/06/18 05:00 90 28 H 93/50 97 05/06/18 04:45 92 28 H 104/54 96 05/06/18 04:30 96 30 H 101/51 99 05/06/18 04:15 98 30 H 98/58 98 05/06/18 04:00 99.3 F 96 29 H 101/56 98 05/06/18 03:45 96 30 H 96/61 98 05/06/18 03:30 96 30 H 105/57 97 05/06/18 03:15 95 30 H 97/51 95 05/06/18 03:00 91 29 H 89/54 97 05/06/18 02:45 88 20 103/59 97 05/06/18 02:30 93 34 H 89/48 97 05/06/18 02:15 96.8 F L 87 26 H 91/53 97 05/06/18 02:00 89 28 H 91/57 97 05/06/18 01:45 88 29 H 89/51 96 05/06/18 01:30 86 27 H 85/40 96 05/06/18 01:15 89 27 H 89/44 96 05/06/18 01:00 93 28 H 98/63 95 05/06/18 00:40 95.3 F L 92 29 H 98/63 94 L 05/06/18 00:30 93 27 H 94 L 05/06/18 00:27 93 30 H 95 05/06/18 00:00 29 H 05/05/18 23:50 98.6 F 05/05/18 23:40 95.4 F L 96 28 H 126/85 94 L 05/05/18 23:30 93 16 113/66 95 05/05/18 23:20 102 H 30 H 113/66 96 05/05/18 23:10 99 29 H 117/61 95 05/05/18 22:50 101 H 30 H 103/56 97 05/05/18 22:40 98 18 104/59 98 05/05/18 22:30 104 H 18 106/61 99 05/05/18 22:20 97 17 106/61 100 05/05/18 21:50 106 H 17 101/52 100 05/05/18 21:40 101 H 17 110/52 97 05/05/18 21:30 106 H 17 110/66 98 05/05/18 21:20 104 H 17 110/66 98 05/05/18 21:10 101 H 26 H 115/56 98 05/05/18 20:50 105 H 17 117/51 98 05/05/18 20:40 112 H 16 110/57 95 05/05/18 20:30 107 H 16 122/58 95 05/05/18 19:50 106 H 18 118/58 94 L 05/05/18 19:44 93 L 05/05/18 18:22 77 18 185/91 96 Intake and Output 05/06/18 05/06/18 05/06/18 06:59 14:59 22:59 Intake Total 1527.674 900.075 20 Output Total 75 10 Balance 1452.674 890.075 20 Intake: IV 1375 765 20 Magnesium Sulfate-D5w Pmx 100 1 gm In Dextrose/Water 1 100ml.bag @ 100 mls/hr IVPB Q1H [facility] Rx#: [id number] Sodium Chloride 0.9% 1, 1375 665 20 000 ml @ 20 mls/hr IV . Q24H [facility] Rx#:[id number] Intake, IV Titration 152.674 135.075 Amount Morphine Sulfate (100 mg/ 8.432 2 ml) 100 mg In Sodium Chloride 0.9% 100 ml @ 4 MG/HR 4.08 mls/hr IV . Q24H [facility] Rx#:[id number] Norepinephrine 4 mg In 4.625 53.875 Sodium Chloride 0.9% 250 ml @ Titrate IV .Q0M [facility] Rx#:[id number] Propofol 1,000 mg In 148.049 72.768 Empty Bag 1 bag @ Titrate IV .Q0M [facility] Rx#: [id number] Output: Urine 75 10 Other: Voiding Method Indwelling Catheter Weight 119 kg Results - Laboratory Findings CBC and BMP: 05/06/18 04:25 05/06/18 04:25 Abnormal Lab Findings: Abnormal Labs 05/05/18 05/05/18 05/05/18 18:26 18:26 18:26 WBC 15.5 H RBC 3.60 L Hgb 12.3 L Hct 37.8 L MCV 105.1 H Plt Count Neutrophils # Neutrophils # (Manual) 10.00 H Lymphocytes # Lymphocytes # (Manual) 5.12 H D-Dimer ABG pH ABG pCO2 ABG pO2 ABG HCO3 ABG Total CO2 ABG O2 Saturation VBG pH 7.09 L* VBG pCO2 73 H* VBG HCO3 21 L Chloride Carbon Dioxide BUN Creatinine Glucose POC Glucose (mg/dL) Plasma Lactic Acid Winston Magnesium Total Bilirubin AST ALT CK-MB (CK-2) 3.6 H Troponin I 0.094 H* Total Protein Albumin Urine Protein Urine Glucose (UA) Urine Blood Ur Leukocyte Esterase Urine RBC Urine WBC Urine WBC Clumps Urine Bacteria Hyaline Casts Urine Yeast (Budding) 05/05/18 05/05/18 05/05/18 18:26 18:26 18:26 WBC RBC Hgb Hct MCV Plt Count Neutrophils # Neutrophils # (Manual) Lymphocytes # Lymphocytes # (Manual) D-Dimer 20.14 H ABG pH ABG pCO2 ABG pO2 ABG HCO3 ABG Total CO2 ABG O2 Saturation VBG pH VBG pCO2 VBG HCO3 Chloride Carbon Dioxide 21 L BUN 23 H Creatinine 1.71 H Glucose 385 H POC Glucose (mg/dL) Plasma Lactic Acid Winston 10.6 H* Magnesium 2.5 H Total Bilirubin 1.4 H AST 188 H ALT 101 H CK-MB (CK-2) Troponin I Total Protein 5.9 L Albumin 3.4 L Urine Protein Urine Glucose (UA) Urine Blood Ur Leukocyte Esterase Urine RBC Urine WBC Urine WBC Clumps Urine Bacteria Hyaline Casts Urine Yeast (Budding) 05/05/18 05/05/18 05/06/18 18:50 22:03 00:06 WBC RBC Hgb Hct MCV Plt Count Neutrophils # Neutrophils # (Manual) Lymphocytes # Lymphocytes # (Manual) D-Dimer ABG pH 7.24 L 7.33 L ABG pCO2 ABG pO2 129 H 136 H ABG HCO3 18 L 20 L ABG Total CO2 ABG O2 Saturation 98.9 H 99.3 H VBG pH VBG pCO2 VBG HCO3 Chloride Carbon Dioxide BUN Creatinine Glucose POC Glucose (mg/dL) 391 H Plasma Lactic Acid Winston Magnesium Total Bilirubin AST ALT CK-MB (CK-2) Troponin I Total Protein Albumin Urine Protein Urine Glucose (UA) Urine Blood Ur Leukocyte Esterase Urine RBC Urine WBC Urine WBC Clumps Urine Bacteria Hyaline Casts Urine Yeast (Budding) 05/06/18 05/06/18 05/06/18 02:16 04:25 04:25 WBC 14.4 H RBC 3.15 L Hgb 10.8 L Hct 32.2 L MCV 101.9 H Plt Count 148 L Neutrophils # 13.2 H Neutrophils # (Manual) Lymphocytes # 0.4 L Lymphocytes # (Manual) D-Dimer ABG pH ABG pCO2 ABG pO2 ABG HCO3 ABG Total CO2 ABG O2 Saturation VBG pH VBG pCO2 VBG HCO3 Chloride 109 H Carbon Dioxide BUN 30 H Creatinine 1.91 H Glucose 274 H POC Glucose (mg/dL) 345 H Plasma Lactic Acid Winston Magnesium Total Bilirubin AST ALT CK-MB (CK-2) Troponin I Total Protein Albumin Urine Protein Urine Glucose (UA) Urine Blood Ur Leukocyte Esterase Urine RBC Urine WBC Urine WBC Clumps Urine Bacteria Hyaline Casts Urine Yeast (Budding) 05/06/18 05/06/18 05/06/18 04:50 06:46 07:56 WBC RBC Hgb Hct MCV Plt Count Neutrophils # Neutrophils # (Manual) Lymphocytes # Lymphocytes # (Manual) D-Dimer ABG pH ABG pCO2 34 L ABG pO2 ABG HCO3 ABG Total CO2 25 H ABG O2 Saturation 98.0 H VBG pH VBG pCO2 VBG HCO3 Chloride Carbon Dioxide BUN Creatinine Glucose POC Glucose (mg/dL) Plasma Lactic Acid Winston 3.3 H* Magnesium Total Bilirubin AST ALT CK-MB (CK-2) Troponin I Total Protein Albumin Urine Protein 2+ H Urine Glucose (UA) 2+ H Urine Blood Large H Ur Leukocyte Esterase Small H Urine RBC >182 H Urine WBC 39 H Urine WBC Clumps Many H Urine Bacteria Moderate H Hyaline Casts 8 H Urine Yeast (Budding) Many H 05/06/18 08:54 WBC RBC Hgb Hct MCV Plt Count Neutrophils # Neutrophils # (Manual) Lymphocytes # Lymphocytes # (Manual) D-Dimer ABG pH ABG pCO2 ABG pO2 ABG HCO3 ABG Total CO2 ABG O2 Saturation VBG pH VBG pCO2 VBG HCO3 Chloride Carbon Dioxide BUN Creatinine Glucose POC Glucose (mg/dL) 207 H Plasma Lactic Acid Winston Magnesium Total Bilirubin AST ALT CK-MB (CK-2) Troponin I Total Protein Albumin Urine Protein Urine Glucose (UA) Urine Blood Ur Leukocyte Esterase Urine RBC Urine WBC Urine WBC Clumps Urine Bacteria Hyaline Casts Urine Yeast (Budding)
[2018-05-07 09:56] LABS: Hemoglobin A1C 6.2 % (4.0-6.0)
--- NOTE | 2018-05-09 14:31 | CDI ---
Documentation Clarification Form Date: 05/09/2018 1:55:45 PM From: Arin Arias Phone: Admit Date: 05/05/2018 9:49:00 PM Patient Name: Viraj Verdin Visit Number: [id number] Discharge Date: 05/06/2018 6:31:00 PM ATTENTION: The Clinical Documentation Specialists (CDI) and [facility] Coding Staff appreciate your assistance in clarifying documentation. Please respond to the clarification below the line at the bottom and electronically sign. The CDI & [facility] Coding staff will review the response and follow-up if needed. Please note: Queries are made part of the Legal Health Record. If you have any questions, please contact the author of this message via ITS. Dr. Brown, 77 y/o male s/p cardiac arrest. History/Risk Factors: cardiac arrest, acute [place], anoxic brain injury CAD CHF Clinical Indicators: Vital signs: RR 26 Pulse oximetry: 62% on admission Lung/Breathing assessment: coarse with expiratory and inspiratory wheezes ABG 7.45 34 90 25 98% on 60% ABG 7.33 39 136 20 99.3% on 75% Treatment: Intubated on ventilator Continuous Pulse ox In your professional opinion, can you please clarify if these findings signify one of the following conditions? Acute Respiratory Failure with hypoxia Acute Respiratory failure with hypercapnia Acute Respiratory Insufficiency Other Diagnosis, please specify Unable to determine MTDD
== END 2018-05-06 18:31 | disposition expired ==
LOC: EC 18:03 → 2SICU 21:49
PROVIDERS: ADMIT Internal Medicine Geriatric Medicine; ATTEND Internal Medicine Geriatric Medicine
PROC: 5A1935Z Respiratory Ventilation, Less than 24 Consecutive Hours (ICD-10-PCS; principal; 2018-05-05)
DX: I21.9 Acute myocardial infarction, unspecified (principal); J96.01 Acute respiratory failure with hypoxia; N17.0 Acute kidney failure with tubular necrosis; I13.0 Hypertensive heart and chronic kidney disease with heart failure and stage 1 through stage 4 chronic kidney disease, or unspecified chronic kidney disease; G93.1 Anoxic brain damage, not elsewhere classified; I46.2 Cardiac arrest due to underlying cardiac condition; I25.10 Atherosclerotic heart disease of native coronary artery without angina pectoris; J44.9 Chronic obstructive pulmonary disease, unspecified; I50.9 Heart failure, unspecified; R79.1 Abnormal coagulation profile; N18.3 Chronic kidney disease, stage 3 (moderate); E11.22 Type 2 diabetes mellitus with diabetic chronic kidney disease; E11.51 Type 2 diabetes mellitus with diabetic peripheral angiopathy without gangrene; E78.5 Hyperlipidemia, unspecified; W07.XXXA Fall from chair, initial encounter; M19.90 Unspecified osteoarthritis, unspecified site; Z96.653 Presence of artificial knee joint, bilateral; Z51.5 Encounter for palliative care; Z66 Do not resuscitate; Z95.0 Presence of cardiac pacemaker; Z79.02 Long term (current) use of antithrombotics/antiplatelets; Z79.82 Long term (current) use of aspirin; Z79.4 Long term (current) use of insulin; Z79.899 Other long term (current) drug therapy; Z88.0 Allergy status to penicillin; I25.2 Old myocardial infarction; Z95.3 Presence of xenogenic heart valve; Z95.1 Presence of aortocoronary bypass graft; Z95.5 Presence of coronary angioplasty implant and graft; Z90.49 Acquired absence of other specified parts of digestive tract; Z85.828 Personal history of other malignant neoplasm of skin; Z87.891 Personal history of nicotine dependence; Z82.49 Family history of ischemic heart disease and other diseases of the circulatory system; Z80.0 Family history of malignant neoplasm of digestive organs
CPT/HCPCS: 36415; 36600; 51702; 70450; 71045; 72125; 80048; 80053; 81001; 82271; 82550; 82553; 82803; 82805; 83036; 83605; 83735; 83880; 84100; 84484; 85025; 85379; 85610; 85730; 87086; 92950; 93005; 94002; 94003; 96365; 96366; 99291